=== PATIENT | female | born 1980 ===

== ENCOUNTER 2016-11-01 17:38 | Emergency (ER) | payer OTHER ==
[2016-11-01 17:52] VITALS: BP 104/66; PULSE 74; RESP 16; TEMP 98.2; O2SAT 99
[2016-11-01] MEDS ORDERED: Sodium Chloride 0.9% 1,000 ML IV STA (18:53)
--- NOTE | 2016-11-01 19:08 | ED PDOC ---
HPI: Abdomen Time Seen by Provider: 11/01/16 18:11 Chief Complaint (Nursing): Abdominal Pain Chief Complaint (Provider): Epigastric Pain History Per: Patient History/Exam Limitations: no limitations Onset/Duration Of Symptoms: Days (2) Current Symptoms Are (Timing): Still Present Severity: Moderate Location Of Pain/Discomfort: Epigastric Associated Symptoms: Nausea, Vomiting. denies: Diarrhea Additional Complaint(s): Kelsea Gray is a 36 y/o female, with a past medical history of hypercholesterolemia, presenting to the ER on 11/01/2016 with complaints of epigastric pain for two days. Reports associated nausea and vomiting but denies any episodes of diarrhea. Past Medical History Vital Signs: Last Vital Signs Temp 98.2 F 11/01/16 17:49 Pulse 74 11/01/16 17:49 Resp 16 11/01/16 17:49 BP 104/66 11/01/16 17:49 Pulse Ox 99 11/01/16 19:10 - Family History Family History: States: Unknown Family Hx - Home Medications Home Medications: Ambulatory Orders Medication Instructions Recorded Famotidine [Pepcid] 20 mg PO Q12 #20 tab 11/01/16 Ondansetron [Zofran] 4 mg PO Q8H #10 tab 11/01/16 - Allergies Allergies/Adverse Reactions: Allergies Allergy/AdvReac Type Severity Reaction Status Date / Time Penicillins Allergy RASH Verified 11/01/16 17:49 Review of Systems ROS Statement: Except As Marked, All Systems Reviewed And Found Negative Gastrointestinal: Positive for: Nausea, Vomiting, Abdominal Pain. Negative for : Diarrhea Neurological: Negative for: Weakness, Numbness Physical Exam - Reviewed Nursing Documentation Reviewed: Yes Vital Signs Reviewed: Yes - Physical Exam Appears: Positive for: Non-toxic, No Acute Distress Head Exam: Positive for: ATRAUMATIC, NORMOCEPHALIC Skin: Positive for: Normal Color. Negative for: Rash Eye Exam: Positive for: Normal appearance, EOMI, PERRL ENT: Positive for: Normal ENT Inspection. Negative for: Pharyngeal Erythema, Tonsillar Exudate, Tonsillar Swelling Neck: Positive for: Normal, Painless ROM, Supple Cardiovascular/Chest: Positive for: Regular Rate, Rhythm. Negative for: Murmur Respiratory: Positive for: Normal Breath Sounds. Negative for: Wheezing, Respiratory Distress Gastrointestinal/Abdominal: Positive for: Tenderness ((+) epigastric ) Extremity: Positive for: Normal ROM. Negative for: Deformity, Swelling Neurologic/Psych: Positive for: Alert, Oriented. Negative for: Motor/Sensory Deficits - Laboratory Results Result Diagrams: 11/01/16 19:55 11/01/16 19:55 - ECG O2 Sat by Pulse Oximetry: 99 Medical Decision Making Medical Decision Makin:11 Initial Impression- 36 y/o female with epigastric pain Initial Plan- * CMP * Urine Dip * Urine Preg * CBC w/ differential * Bentyl 10 mg PO * Pepcid 20 mg IVP * Sodium Chloride 1,000 ml IV * Zofran 4 mg IVP * Re-evaluate Documented by Gena Walsh, acting as a scribe for Duong Alejandro MD. All medical record entries made by the Scribe were at my direction and personally dictated by me. I have reviewed the chart and agree that the record accurately reflects my personal performance of the history, physical exam, medical decision making, and the department course for this patient. I have also personally directed, reviewed, and agree with the discharge instructions and disposition. Disposition - Clinical Impression Clinical Impression: Gastritis - Patient ED Disposition Is Patient to be Admitted: No Counseled Patient/Family Regarding: Studies Performed, Diagnosis, Need For Followup, Rx Given - Disposition Referrals: [facility] [Outside] Disposition: Routine/Home Disposition Time: 21:38 Condition: FAIR Prescriptions: Famotidine [Pepcid] 20 mg PO Q12 #20 tab Ondansetron [Zofran] 4 mg PO Q8H #10 tab Instructions: Gastritis (ED)
[2016-11-01 20:11] LABS: BASO % 0.7 % (0.0-2.0); EOS # 0.3 K/uL (0.0-0.7); EOS % 5.6 % (0.0-4.0); LYMPH # 1.1 K/uL (1.0-4.3); LYMPH % 24.5 % (20.0-40.0); MEAN CELL VOLUME 90.2 fl (81.0-99.0); MEAN CORPUSCULAR HEMOGLOBIN 29.7 pg (27.0-31.0); MEAN CORPUSCULAR HGB CONC 32.9 g/dL (33.0-37.0); MEAN PLATELET VOLUME 7.7 fl (7.2-11.7); MONO # 0.5 K/uL (0.0-0.8); MONO % 10.3 % (0.0-10.0); NEUT # 2.7 K/uL (1.8-7.0); NEUT % 58.9 % (50.0-75.0); NRBC % 0.1 % (0.0-0.0); RED CELL DISTRIBUTION WIDTH 14.9 % (11.5-14.5); WHITE BLOOD COUNT 4.6 K/uL (4.8-10.8)
[2016-11-01 20:22] LABS: ALB/GLOB RATIO 1.2 (1.0-2.1); ALKALINE PHOSPHATASE 80 U/L (38-126); ALT/SGPT 51 U/L (9-52); AST/SGOT 41 U/L (14-36); BILIRUBIN,TOTAL 0.6 mg/dl (0.2-1.3); BLOOD UREA NITROGEN 15 mg/dl (7-17); CALCIUM 8.3 mg/dL (8.4-10.2); CARBON DIOXIDE 25 mmol/L (22-30); CHLORIDE 106 mmol/L (98-107); GFR AFRICAN-AMERICAN > 60; GLUCOSE,RANDOM 82 mg/dL (65-105); POTASSIUM 4.9 MMOL/L (3.6-5.0); SODIUM 139 mmol/l (132-148); TOTAL PROTEIN 6.5 G/DL (6.3-8.2)
== END 2016-11-01 21:39 | disposition home or self-care (01) ==
LOC: H.ER 17:38
DX: K29.70 Gastritis, unspecified, without bleeding (principal); Z88.0 Allergy status to penicillin

== ENCOUNTER 2016-12-02 21:05 | Emergency (ER) | payer OTHER ==
[2016-12-02 21:17] VITALS: RESP 16; O2SAT 100
[2016-12-02] MEDS ORDERED: Alum-Mag Hydrox-Simethicone Susp (30 mL) PO STA (21:41)
--- NOTE | 2016-12-02 21:48 | ED PDOC ---
HPI: Abdomen Time Seen by Provider: 12/02/16 21:21 Chief Complaint (Nursing): Abdominal Pain Chief Complaint (Provider): Abdominal Pain History Per: Patient History/Exam Limitations: no limitations Onset/Duration Of Symptoms: Days (1) Current Symptoms Are (Timing): Still Present Severity: Moderate Location Of Pain/Discomfort: Epigastric Quality Of Discomfort: "Pain" Associated Symptoms: Chills, Vomiting. denies: Fever, Diarrhea Additional Complaint(s): Kelsea Gray is a 36 y/o female, with a past medical history of Lyme Disease and Gastritis, presenting to the ER on 12/02/2016 with complaints of epigastric pain onset one day. Patient reports pain originated around 16:00 today and has been constant every five minutes prior to arrival and while in the ED. She states the abdominal pain is associated with chills and one episodes of non-bloody vomiting. However, she denies any fever or diarrhea. Patient notes started taking Flagyl, Pantoprazole, and Clarithromycin after having a recent H. pylori test performed. Patient further reports she had an Ultrasound performed in this ED. Past Medical History Reviewed: Historical Data, Nursing Documentation, Vital Signs Vital Signs: Last Vital Signs Temp 98.8 F 12/02/16 21:11 Pulse 71 12/02/16 21:11 Resp 16 12/02/16 21:11 BP 102/68 12/02/16 21:11 Pulse Ox 100 12/02/16 21:52 - Medical History PMH: Gastritis Other PMH: Lyme disease - Surgical History Surgical History: No Surg Hx - Family History Family History: States: Unknown Family Hx - Social History Current smoker - smoking cessation education provided: No Alcohol: None Drugs: Denies - Home Medications Home Medications: Ambulatory Orders Medication Instructions Recorded Famotidine [Pepcid] 20 mg PO Q12 #20 tab 11/01/16 Ondansetron [Zofran] 4 mg PO Q8H #10 tab 11/01/16 - Allergies Allergies/Adverse Reactions: Allergies Allergy/AdvReac Type Severity Reaction Status Date / Time Penicillins Allergy RASH Verified 11/01/16 17:49 Review of Systems ROS Statement: Except As Marked, All Systems Reviewed And Found Negative Constitutional: Positive for: Chills. Negative for: Fever Gastrointestinal: Positive for: Vomiting, Abdominal Pain. Negative for: Diarrhea Physical Exam - Reviewed Nursing Documentation Reviewed: Yes Vital Signs Reviewed: Yes - Physical Exam Appears: Positive for: Non-toxic, No Acute Distress Head Exam: Positive for: ATRAUMATIC, NORMOCEPHALIC Skin: Positive for: Normal Color. Negative for: Rash Eye Exam: Positive for: Normal appearance ENT: Positive for: Normal ENT Inspection Neck: Positive for: Normal, Painless ROM, Supple Cardiovascular/Chest: Positive for: Regular Rate, Rhythm. Negative for: Murmur Respiratory: Positive for: Normal Breath Sounds. Negative for: Respiratory Distress Gastrointestinal/Abdominal: Positive for: Normal Exam, Tenderness ((+) epigastric ) Extremity: Positive for: Normal ROM. Negative for: Deformity, Swelling Neurologic/Psych: Positive for: Alert, Oriented. Negative for: Motor/Sensory Deficits - Laboratory Results Result Diagrams: 12/02/16 21:55 12/02/16 21:55 - ECG O2 Sat by Pulse Oximetry: 100 - Progress Re-evaluation Time: 23:51 Condition: Re-examined, Improved Medical Decision Making Medical Decision Makin:21 Initial Impression- Abdominal Pain. Differerential diagnosis includes but not limited to gastritis and PUD. Rule out pancratitis, rule out cholecystitis Initial Plan- * CMP * Lipase * CBC w/ differential * Maalox 30 ml PO * Pepcid 20 mg IVP * Lidocaine 2% viscous 15 ml PO * Zofran 4 mg IV US Performed on 11/04/2016 FINDINGS: LIVER: Measures 14.4 cm. Patent portal vein. Portal venous flow: Hepatopetal. Unremarkeable echogenicity of the liver parenchyma. No mass. No intrahepatic bile duct dilatation. GALLBLADDER: Unremarkable. No gallstones. COMMON BILE DUCT: Measures 2.6 mm. No stones. No dilatation. PANCREAS: Unremarkable as visualized. No mass. No ductal dilatation. RIGHT KIDNEY: Measures 5 x 10.5cm. Normal echogenicity. No calculus, mass, or hydronephrosis. LEFT KIDNEY: Measures 4.9 x 12.2cm. Normal echogenicity. No calculus, mass, or hydronephrosis. SPLEEN: Normal in size and contour. No mass. AORTA: No aneurysmal dilatation. IVC: Unremarkable. OTHER FINDINGS: None. IMPRESSION: Unremarkable abdominal sonogram Documented by Gena Walsh, acting as a scribe for Rachel Messina MD All medical record entries made by the Scribe were at my direction and personally dictated by me. I have reviewed the chart and agree that the record accurately reflects my personal performance of the history, physical exam, medical decision making, and the department course for this patient. I have also personally directed, reviewed, and agree with the discharge instructions and disposition. Disposition - Clinical Impression Clinical Impression: Gastritis - Patient ED Disposition Is Patient to be Admitted: No Doctor Will See Patient In The: Office Counseled Patient/Family Regarding: Studies Performed, Diagnosis, Need For Followup - Disposition Referrals: [facility] [Outside] Disposition: Routine/Home Disposition Time: 23:51 Condition: GOOD Additional Instructions: Continue taking your medications as instructed. Follow up with your PCp in 2-3 days. Return for worsening. Instructions: Gastritis (ED) Print Language: CROATIAN
[2016-12-02 22:07] LABS: BASO % 0.5 % (0.0-2.0); EOS # 0.2 K/uL (0.0-0.7); EOS % 3.1 % (0.0-4.0); HEMOGLOBIN 12.9 g/dL (12.0-16.0); LYMPH % 17.9 % (20.0-40.0); MEAN CELL VOLUME 88.6 fl (81.0-99.0); MEAN CORPUSCULAR HEMOGLOBIN 29.2 pg (27.0-31.0); MEAN PLATELET VOLUME 7.6 fl (7.2-11.7); MONO # 0.6 K/uL (0.0-0.8); MONO % 10.8 % (0.0-10.0); NEUT # 3.8 K/uL (1.8-7.0); NEUT % 67.7 % (50.0-75.0); RBC 4.42 Mil/uL (3.80-5.20); RED CELL DISTRIBUTION WIDTH 15.4 % (11.5-14.5); WHITE BLOOD COUNT 5.6 K/uL (4.8-10.8)
[2016-12-02 22:18] LABS: ALB/GLOB RATIO 1.3 (1.0-2.1); ALBUMIN 3.6 g/dL (3.5-5.0); ALT/SGPT 53 U/L (9-52); AST/SGOT 27 U/L (14-36); BLOOD UREA NITROGEN 9 mg/dl (7-17); CALCIUM 8.9 mg/dL (8.4-10.2); GFR AFRICAN-AMERICAN > 60; GFR NON-AFRICAN AMERICAN > 60; LIPASE 85 U/L (23-300)
[2016-12-02 23:52] VITALS: BP 112/66; PULSE 66; TEMP 98.2
== END 2016-12-02 23:59 | disposition home or self-care (01) ==
LOC: H.ER 21:05
DX: K29.70 Gastritis, unspecified, without bleeding (principal); K27.9 Peptic ulcer, site unspecified, unspecified as acute or chronic, without hemorrhage or perforation; Z88.0 Allergy status to penicillin; A69.20 Lyme disease, unspecified

== ENCOUNTER 2017-01-06 07:10 | Emergency (ER) | payer OTHER ==
[2017-01-06 07:35] VITALS: RESP 18
[2017-01-06] MEDS ORDERED: Sodium Chloride 0.9% 1,000 ML IV STA (07:49)
--- NOTE | 2017-01-06 07:51 | ED PDOC ---
HPI: Abdomen Time Seen by Provider: 01/06/17 07:33 Chief Complaint (Nursing): Abdominal Pain Chief Complaint (Provider): Abdominal Pain History Per: Patient History/Exam Limitations: no limitations Onset/Duration Of Symptoms: Days (x1 week) Current Symptoms Are (Timing): Still Present Additional Complaint(s): 36 y/o female presents to the emergency department with a complaint of an epigastric abdominal pain associated with nausea and diarrhea x1 week. Reports she was diagnosed with "bacteria in stomach," and currently taking treatment medications x2 weeks. Denies fever or blood stool.s Past Medical History Reviewed: Historical Data, Nursing Documentation, Vital Signs Vital Signs: Last Vital Signs Temp 97.8 F 01/06/17 07:32 Pulse 73 01/06/17 07:32 Resp 18 01/06/17 07:32 BP 95/61 L 01/06/17 07:32 Pulse Ox 100 01/06/17 08:28 - Medical History PMH: Gastritis - Surgical History Surgical History: No Surg Hx - Family History Family History: States: Unknown Family Hx - Home Medications Home Medications: Ambulatory Orders Medication Instructions Recorded Famotidine [Pepcid] 20 mg PO Q12 #20 tab 11/01/16 Ondansetron [Zofran] 4 mg PO Q8H #10 tab 11/01/16 Ondansetron [Zofran] 4 mg PO Q8H #10 tab 01/06/17 Pantoprazole Sodium [Protonix] 40 mg PO DAILY #30 tablet. 01/06/17 - Allergies Allergies/Adverse Reactions: Allergies Allergy/AdvReac Type Severity Reaction Status Date / Time Penicillins Allergy RASH Verified 11/01/16 17:49 Review of Systems ROS Statement: Except As Marked, All Systems Reviewed And Found Negative Constitutional: Negative for: Fever Gastrointestinal: Positive for: Nausea, Abdominal Pain (Epigastric), Diarrhea. Negative for: Hematochezia Physical Exam - Reviewed Nursing Documentation Reviewed: Yes Vital Signs Reviewed: Yes - Physical Exam Appears: Positive for: Non-toxic, No Acute Distress Head Exam: Positive for: ATRAUMATIC, NORMAL INSPECTION, NORMOCEPHALIC Skin: Positive for: Normal Color, Warm, Dry Neck: Positive for: Normal, Supple Cardiovascular/Chest: Positive for: Regular Rate, Rhythm. Negative for: Murmur Respiratory: Positive for: Normal Breath Sounds. Negative for: Accessory Muscle Use, Wheezing, Respiratory Distress Gastrointestinal/Abdominal: Positive for: Soft, Tenderness (Mild tenderness to the epigastric region). Negative for: Normal Exam Neurologic/Psych: Positive for: Alert, Oriented (x3) - Laboratory Results Result Diagrams: 01/06/17 08:15 01/06/17 08:15 - ECG O2 Sat by Pulse Oximetry: 100 (RA) Pulse Ox Interpretation: Normal Medical Decision Making Medical Decision Making: Time: 07:49 Initial impression: Abdominal pain Initial plan: --CMP --Lipase --Urine DIP & Preg --CBC w/ diff --Bentyl 10 mg PO --Pepcid 20 mg IVP --Zofran 4 mg IVP --Sodium Chloride 1L IV 100 mls/hr --Reevaluation Scribe Attestation: Documented by Yanelis Chambers, acting as a scribe for Duong Alejandro MD. Provider Scribe Attestation: All medical record entries made by the Scribe were at my direction and personally dictated by me. I have reviewed the chart and agree that the record accurately reflects my personal performance of the history, physical exam, medical decision making, and the department course for this patient. I have also personally directed, reviewed, and agree with the discharge instructions and disposition. Disposition - Clinical Impression Clinical Impression: Gastritis - Patient ED Disposition Is Patient to be Admitted: No - Disposition Referrals: Provider LAURO, [Primary Care Provider] - [facility] [Outside] Disposition: Routine/Home Disposition Time: 10:57 Condition: FAIR Prescriptions: Ondansetron [Zofran] 4 mg PO Q8H #10 tab Pantoprazole Sodium [Protonix] 40 mg PO DAILY #30 tablet. Instructions: Gastritis (ED) Forms: [id number] (Portuguese)
[2017-01-06 08:23] LABS: BASO % 0.4 % (0.0-2.0); EOS # 0.2 K/uL (0.0-0.7); EOS % 3.6 % (0.0-4.0); HEMATOCRIT 38.9 % (34.0-47.0); LYMPH % 19.6 % (20.0-40.0); MEAN CELL VOLUME 88.5 fl (81.0-99.0); MEAN CORPUSCULAR HEMOGLOBIN 29.5 pg (27.0-31.0); MEAN CORPUSCULAR HGB CONC 33.4 g/dL (33.0-37.0); MEAN PLATELET VOLUME 7.4 fl (7.2-11.7); MONO # 0.5 K/uL (0.0-0.8); MONO % 9.9 % (0.0-10.0); NEUT # 3.5 K/uL (1.8-7.0); NEUT % 66.5 % (50.0-75.0); NRBC % 0.2 % (0.0-0.0); RED CELL DISTRIBUTION WIDTH 14.8 % (11.5-14.5); WHITE BLOOD COUNT 5.3 K/uL (4.8-10.8)
[2017-01-06 08:38] LABS: ALB/GLOB RATIO 1.3 (1.0-2.1); ALKALINE PHOSPHATASE 108 U/L (38-126); ALT/SGPT 42 U/L (9-52); AST/SGOT 31 U/L (14-36); BILIRUBIN,TOTAL 0.5 mg/dl (0.2-1.3); BLOOD UREA NITROGEN 12 mg/dl (7-17); CALCIUM 8.9 mg/dL (8.4-10.2); CARBON DIOXIDE 27 mmol/L (22-30); CHLORIDE 103 mmol/L (98-107); GFR AFRICAN-AMERICAN > 60; GLUCOSE,RANDOM 96 mg/dL (65-105); LIPASE 108 U/L (23-300); POTASSIUM 3.7 MMOL/L (3.6-5.0); SODIUM 138 mmol/l (132-148); TOTAL PROTEIN 6.7 G/DL (6.3-8.2)
[2017-01-06 11:32] VITALS: BP 110/64; PULSE 72; TEMP 98.3; O2SAT 99
== END 2017-01-06 11:32 | disposition home or self-care (01) ==
LOC: SUPCPDRO 07:10 → H.ER 07:10
DX: K29.70 Gastritis, unspecified, without bleeding (principal); Z88.0 Allergy status to penicillin
CPT/HCPCS: 80053; 81025; 83690; 85025; 96374; 96375; 99284; J2405; J7040

== ENCOUNTER 2017-03-08 10:03 | Emergency (ER) | payer SELFPAY ==
[2017-03-08 11:46] VITALS: RESP 18; TEMP 97
[2017-03-08] MEDS ORDERED: Sodium Chloride 0.9% 1,000 ML IV STA (12:00)
[2017-03-08] MEDS ORDERED: HYDROmorphone 1 mg/ml ISec IVP STA (12:00)
--- NOTE | 2017-03-08 12:10 | ED PDOC ---
HPI: Abdomen Time Seen by Provider: 03/08/17 11:38 Chief Complaint (Nursing): Abdominal Pain Chief Complaint (Provider): Right Lower Quadrant Pain History Per: Patient History/Exam Limitations: no limitations Onset/Duration Of Symptoms: Days (x 1 (last night)) Current Symptoms Are (Timing): Still Present Location Of Pain/Discomfort: RLQ Additional Complaint(s): Kelsea is a 37 year old female, who presents to the Emergency Department complaining of right lower quadrant pain since last night. Patient describes as constant and sharp pain. Patient states she took ibuprofen, but had no relief. States that pain began at the right lower back and radiated to abdomen. Denies fever, nausea, vomiting, diarrhea, constipation, dysuria, and frequency. PMD: Provider TBD Past Medical History Reviewed: Historical Data, Nursing Documentation, Vital Signs Vital Signs: Last Vital Signs Temp 97 F L 03/08/17 11:42 Pulse 77 03/08/17 11:42 Resp 18 03/08/17 11:42 BP 105/57 L 03/08/17 11:42 Pulse Ox 96 03/08/17 14:01 - Medical History PMH: Gastritis - Surgical History Surgical History: No Surg Hx - Family History Family History: States: Unknown Family Hx - Home Medications Home Medications: Ambulatory Orders Medication Instructions Recorded Famotidine [Pepcid] 20 mg PO Q12 #20 tab 11/01/16 Ondansetron [Zofran] 4 mg PO Q8H #10 tab 11/01/16 Ondansetron [Zofran] 4 mg PO Q8H #10 tab 01/06/17 Pantoprazole Sodium [Protonix] 40 mg PO DAILY #30 tablet. 01/06/17 Acetaminophen with Codeine 1 tab PO Q6H PRN #10 tab 03/08/17 [Tylenol with Codeine No. 3 300 mg-30 mg] Ciprofloxacin [Cipro] 500 mg PO BID #13 tab 03/08/17 metroNIDAZOLE [Flagyl] 500 mg PO TID #20 tab 03/08/17 - Allergies Allergies/Adverse Reactions: Allergies Allergy/AdvReac Type Severity Reaction Status Date / Time Penicillins Allergy RASH Verified 03/08/17 11:40 Review of Systems ROS Statement: Except As Marked, All Systems Reviewed And Found Negative Constitutional: Negative for: Fever Gastrointestinal: Positive for: Abdominal Pain (Right Lower Quadrant). Negative for: Nausea, Vomiting, Diarrhea, Constipation Genitourinary Female: Negative for: Dysuria, Frequency Physical Exam - Reviewed Nursing Documentation Reviewed: Yes Vital Signs Reviewed: Yes - Physical Exam Appears: Positive for: Non-toxic, In Acute Distress (Moderate and painful distress) Head Exam: Positive for: ATRAUMATIC, NORMAL INSPECTION, NORMOCEPHALIC Skin: Positive for: Normal Color, Warm, Dry Eye Exam: Positive for: EOMI, Normal appearance, PERRL Neck: Positive for: Normal, Painless ROM Cardiovascular/Chest: Positive for: Regular Rate, Rhythm. Negative for: Murmur Respiratory: Positive for: Normal Breath Sounds. Negative for: Respiratory Distress Gastrointestinal/Abdominal: Positive for: Soft, Tenderness (Generalized tenderness , but more at right lower quadrant). Negative for: Guarding, Rebound Back: Positive for: Normal Inspection. Negative for: Vertebral Tenderness Extremity: Positive for: Normal ROM. Negative for: Pedal Edema, Deformity Neurologic/Psych: Positive for: Alert, Oriented. Negative for: Motor/Sensory Deficits - Laboratory Results Result Diagrams: 03/08/17 12:30 03/08/17 12:30 - ECG O2 Sat by Pulse Oximetry: 96 (RA) Pulse Ox Interpretation: Normal Medical Decision Making Medical Decision Making: Time: 11:59 Initial Impression: Ovarian torsion vs. appendicitis Initial Plan: - CT Abdominal and Pelvis with IV contrast - CMP - CBC - Partial Thromboplastin Time - Prothrombin Time - Dilaudid 1 mg IVP - Sodium Chloride 0.9% 1,000 ml IV 1,000 mls/hr - Urinalysis - US Pelvis/Transvaginal Time: 13:47 US Abdominal/Pelvis/Transvaginal FINDINGS: UTERUS: Measures 7.6 x 3.5 x 4.4 cm. Anteverted, normal in size and appearance. No fibroid or other mass lesion seen. ENDOMETRIUM: Measures 11 mm in diameter. Normal in appearance. CERVIX: No cervical abnormality identified. RIGHT OVARY: Measures 2.8 x 2.0 x 2.0 cm. No solid mass. Normal flow. LEFT OVARY: Measures 2.2 x 1.5 x 1.6 cm. No solid mass. Normal flow. FREE FLUID: There is a small amount of free fluid in the cul de sac, likely physiologic. OTHER FINDINGS: None. IMPRESSION: Normal pelvic ultrasound. Time: 14;12 CT Abdominal/Pelvis FINDINGS: LOWER THORAX: The lung bases are clear. LIVER: There is mild hepatomegaly and diffuse fatty infiltration in the liver. No gross lesion or ductal dilatation. GALLBLADDER AND BILE DUCTS: There are no calcified gallstones. . PANCREAS: Normal in size and there is homogeneous enhancement. No gross lesion or ductal dilatation. SPLEEN: Normal in size and appearance without focal lesion. ADRENALS: There is thickening of the adrenal glands without discrete nodule. KIDNEYS AND URETERS: Both kidneys are normal in size and there is homogeneous enhancement. No hydronephrosis. No solid mass. VASCULATURE: No aortic aneurysm. BOWEL: The small bowel loops are normal in caliber. There is moderate mural thickening in the ascending colon with mucosal enhancement and mild pericolonic inflammatory changes. There is large amount of stool in the transverse and left hemicolon. No bowel dilatation or obstruction. APPENDIX: The appendix is normal in caliber and there is intraluminal air without surrounding inflammatory changes. PERITONEUM: There is small amount of free fluid in the pelvis. No free air. LYMPH NODES: There are enlarged mesenteric lymph nodes. BLADDER: Grossly normal in appearance. REPRODUCTIVE: The uterus is normal in size. BONES: No acute fracture. OTHER FINDINGS: None. IMPRESSION: 1. Findings are most compatible with nonspecific infectious/ inflammatory colitis involving the ascending colon. Also noted is small amount of free fluid in the pelvis and reactive mesenteric lymphadenopathy. No drainable abscess or fluid collection. 2. Mild hepatomegaly and hepatic steatosis. Time: 14:46 Clinical Impression: Colitis Upon provider re-evaluation patient is medically stable, and requires no further treatment in the ED at this time. Patient will be discharged with Rx for Tylenol with Codeine, Cipro, and Flagyl. Counseling was provided and all questions were answered regarding diagnosis and need for follow up with PMD. There is agreement to discharge plan. Return if symptoms persist or worsen. Scribe Attestation: Documented by Osiel Ayala, acting as a scribe for Shelby Cobb MD Provider Scribe Attestation: All medical record entries made by the Scribe were at my direction and personally dictated by me. I have reviewed the chart and agree that the record accurately reflects my personal performance of the history, physical exam, medical decision making, and the department course for this patient. I have also personally directed, reviewed, and agree with the discharge instructions and disposition. Disposition - Clinical Impression Clinical Impression: Colitis - Patient ED Disposition Is Patient to be Admitted: No Counseled Patient/Family Regarding: Studies Performed, Diagnosis, Need For Followup, Rx Given - Disposition Referrals: [facility] [Outside] Disposition Time: 14:46 Condition: STABLE Prescriptions: Acetaminophen with Codeine [Tylenol with Codeine No. 3 300 mg-30 mg] 1 tab PO Q6H PRN #10 tab PRN Reason: Pain, Severe (8-10) Ciprofloxacin [Cipro] 500 mg PO BID #13 tab metroNIDAZOLE [Flagyl] 500 mg PO TID #20 tab Instructions: Colitis (ED) Forms: [employer] (Austrian)
[2017-03-08 12:21] LABS: RBC URINE < 1 /hpf (0-3); URINE BILIRUBIN NEGATIVE (NEGATIVE); URINE BLOOD NEGATIVE (NEGATIVE); URINE COLOR COLORLESS (YELLOW); URINE GLUCOSE (UA) NEG (Normal); URINE KETONE NEGATIVE (NEGATIVE); URINE LEUKOCYTE ESTERASE NEG Leu/uL (Negative); URINE PROTEIN NEGATIVE (NEGATIVE); URINE UROBILINOGEN 0.2-1.0 mg/dL (0.2-1.0)
[2017-03-08 12:42] LABS: BASO % 0.4 % (0.0-2.0); EOS # 0.1 K/uL (0.0-0.7); EOS % 2.2 % (0.0-4.0); HEMATOCRIT 36.9 % (34.0-47.0); MEAN CELL VOLUME 86.3 fl (81.0-99.0); MEAN CORPUSCULAR HEMOGLOBIN 29.3 pg (27.0-31.0); MEAN CORPUSCULAR HGB CONC 33.9 g/dL (33.0-37.0); MEAN PLATELET VOLUME 7.3 fl (7.2-11.7); MONO # 0.5 K/uL (0.0-0.8); MONO % 7.6 % (0.0-10.0); NEUT # 5.2 K/uL (1.8-7.0); NEUT % 75.8 % (50.0-75.0); NRBC % 0.1 % (0.0-0.0); RED CELL DISTRIBUTION WIDTH 14.4 % (11.5-14.5); WHITE BLOOD COUNT 6.9 K/uL (4.8-10.8)
[2017-03-08 12:47] LABS: PARTIAL THROMBOPLASTIN TIME 29.5 Seconds (25.6-37.1)
[2017-03-08] MEDS ORDERED: HYDROmorphone 0.5 mg/0.5 ml ISec ONE (12:47)
[2017-03-08 12:48] LABS: ALB/GLOB RATIO 1.2 (1.0-2.1); ALKALINE PHOSPHATASE 85 U/L (38-126); ALT/SGPT 35 U/L (9-52); AST/SGOT 27 U/L (14-36); BILIRUBIN,TOTAL 0.3 mg/dl (0.2-1.3); BLOOD UREA NITROGEN 4 mg/dl (7-17); CALCIUM 8.2 mg/dL (8.4-10.2); CARBON DIOXIDE 26 mmol/L (22-30); CHLORIDE 107 mmol/L (98-107); GFR AFRICAN-AMERICAN > 60; GLUCOSE,RANDOM 93 mg/dL (65-105); POTASSIUM 3.8 MMOL/L (3.6-5.0); SODIUM 140 mmol/l (132-148); TOTAL PROTEIN 6.3 G/DL (6.3-8.2)
[2017-03-08] MEDS ORDERED: Sodium Chloride 0.9% 50 ML IV ONE (13:17)
[2017-03-08] MEDS ORDERED: Iohexol 300 100 ML IJ ONE (13:17)
--- NOTE | 2017-03-08 13:49 | US ---
HISTORY: RLQ pain COMPARISON: None available. TECHNIQUE: Transabdominal and transvaginal pelvic ultrasound was performed FINDINGS: UTERUS: Measures 7.6 x 3.5 x 4.4 cm. Anteverted, normal in size and appearance. No fibroid or other mass lesion seen. ENDOMETRIUM: Measures 11 mm in diameter. Normal in appearance. CERVIX: No cervical abnormality identified. RIGHT OVARY: Measures 2.8 x 2.0 x 2.0 cm. No solid mass. Normal flow. LEFT OVARY: Measures 2.2 x 1.5 x 1.6 cm. No solid mass. Normal flow. FREE FLUID: There is a small amount of free fluid in the cul de sac, likely physiologic. OTHER FINDINGS: None. IMPRESSION: Normal pelvic ultrasound.
--- NOTE | 2017-03-08 14:13 | CT ---
PROCEDURE: CT Abdomen and Pelvis with contrast HISTORY: RLQ pain COMPARISON: Pelvic ultrasound performed the same day. TECHNIQUE: CT scan of the abdomen and pelvis was performed after intravenous administration of contrast. Oral contrast was not administered. Coronal and sagittal reformatted images were obtained. Contrast dose: 95 cc Omnipaque 300 Radiation dose: Total exam DLP = 319.22 mGy-cm. This CT exam was performed using one or more of the following dose reduction techniques: Automated exposure control, adjustment of the mA and/or kV according to patient size, and/or use of iterative reconstruction technique. FINDINGS: LOWER THORAX: The lung bases are clear. LIVER: There is mild hepatomegaly and diffuse fatty infiltration in the liver. No gross lesion or ductal dilatation. GALLBLADDER AND BILE DUCTS: There are no calcified gallstones. . PANCREAS: Normal in size and there is homogeneous enhancement. No gross lesion or ductal dilatation. SPLEEN: Normal in size and appearance without focal lesion. ADRENALS: There is thickening of the adrenal glands without discrete nodule. KIDNEYS AND URETERS: Both kidneys are normal in size and there is homogeneous enhancement. No hydronephrosis. No solid mass. VASCULATURE: No aortic aneurysm. BOWEL: The small bowel loops are normal in caliber. There is moderate mural thickening in the ascending colon with mucosal enhancement and mild pericolonic inflammatory changes. There is large amount of stool in the transverse and left hemicolon. No bowel dilatation or obstruction. APPENDIX: The appendix is normal in caliber and there is intraluminal air without surrounding inflammatory changes. PERITONEUM: There is small amount of free fluid in the pelvis. No free air. LYMPH NODES: There are enlarged mesenteric lymph nodes. BLADDER: Grossly normal in appearance. REPRODUCTIVE: The uterus is normal in size. BONES: No acute fracture. OTHER FINDINGS: None. IMPRESSION: 1. Findings are most compatible with nonspecific infectious/ inflammatory colitis involving the ascending colon. Also noted is small amount of free fluid in the pelvis and reactive mesenteric lymphadenopathy. No drainable abscess or fluid collection. 2. Mild hepatomegaly and hepatic steatosis.
[2017-03-08] MEDS ORDERED: Ciprofloxacin 400mg/200ml D5W 400 MG/200 ML BAG IV STA (14:26)
[2017-03-08] MEDS ORDERED: Ciprofloxacin 400mg/200ml D5W 400 MG/200 ML BAG IVPB ONE (14:54)
[2017-03-08 16:52] VITALS: BP 98/65; PULSE 63; O2SAT 97
== END 2017-03-08 16:47 | disposition home or self-care (01) ==
LOC: H.ER 10:03
DX: K52.9 Noninfective gastroenteritis and colitis, unspecified (principal); K76.0 Fatty (change of) liver, not elsewhere classified
CPT/HCPCS: 74177; 76830; 76856; 80053; 81003; 81025; 85025; 85610; 85730; 96374; 99283; J0744; J1170; J7040; Q9967

== ENCOUNTER 2017-05-23 16:36 | Emergency (ER) | payer SELFPAY ==
[2017-05-23 17:10] VITALS: O2SAT 99
[2017-05-23] MEDS ORDERED: Iohexol 240 (50 ml) PO STA (17:36)
[2017-05-23] MEDS ORDERED: Sodium Chloride 0.9% 1,000 ML IV STA (17:36)
--- NOTE | 2017-05-23 17:46 | ED PDOC ---
HPI: Abdomen Time Seen by Provider: 05/23/17 17:15 Chief Complaint (Nursing): Abdominal Pain Chief Complaint (Provider): abd pain History Per: Patient Additional Complaint(s): Patient is a 37 y/o female with a past medical history of gastritis presenting to the emergency department for diffuse abd pain with associated vomiting and nausea ongoing for three days. Patient states she was diagnosed with H. pylori in January 2017. She states she has been on 3 separate courses of antibiotics and her symptoms have not resolved. Patient admits to being noncompliant with gastritis meds. Her abdominal pain worsened over the past few days prompting ED visit today. Patient denies any associated diarrhea or rectal bleeding. PCP: none provided. Past Medical History Reviewed: Historical Data, Nursing Documentation, Vital Signs Vital Signs: Last Vital Signs Temp 98.3 F 05/23/17 17:06 Pulse 90 05/23/17 17:06 Resp 18 05/23/17 17:06 BP 135/85 05/23/17 17:06 Pulse Ox 99 05/23/17 20:38 - Medical History PMH: Gastritis Other PMH: H pylori - Family History Family History: States: No Known Family Hx - Living Arrangements Living Arrangements: With Family - Social History Current smoker - smoking cessation education provided: No Ex-Smoker (has not smoked in the last 12 months): No Alcohol: None Drugs: Denies - Home Medications Home Medications: Ambulatory Orders Medication Instructions Recorded Famotidine [Pepcid] 20 mg PO Q12 #20 tab 11/01/16 Ondansetron [Zofran] 4 mg PO Q8H #10 tab 11/01/16 Ondansetron [Zofran] 4 mg PO Q8H #10 tab 01/06/17 Pantoprazole Sodium [Protonix] 40 mg PO DAILY #30 tablet. 01/06/17 Acetaminophen with Codeine 1 tab PO Q6H PRN #10 tab 03/08/17 [Tylenol with Codeine No. 3 300 mg-30 mg] Ciprofloxacin [Cipro] 500 mg PO BID #13 tab 03/08/17 metroNIDAZOLE [Flagyl] 500 mg PO TID #20 tab 03/08/17 Dicyclomine [Bentyl] 10 mg PO QID PRN #30 cap 05/23/17 Omeprazole 40 mg PO DAILY #30 tab 05/23/17 - Allergies Allergies/Adverse Reactions: Allergies Allergy/AdvReac Type Severity Reaction Status Date / Time Penicillins Allergy RASH Verified 05/23/17 17:05 Review of Systems ROS Statement: Except As Marked, All Systems Reviewed And Found Negative Gastrointestinal: Positive for: Nausea, Vomiting, Abdominal Pain (epigastric, right lower abdominal region). Negative for: Diarrhea, Constipation, Melena, Hematochezia, Hematemesis, Rectal Pain Musculoskeletal: Positive for: Back Pain (left flank) Physical Exam - Reviewed Nursing Documentation Reviewed: Yes Vital Signs Reviewed: Yes - Physical Exam Appears: Positive for: Well, Non-toxic, No Acute Distress Head Exam: Positive for: ATRAUMATIC, NORMAL INSPECTION, NORMOCEPHALIC Skin: Positive for: Normal Color, Warm, Dry Eye Exam: Positive for: Normal appearance Neck: Positive for: Normal Cardiovascular/Chest: Positive for: Regular Rate, Rhythm Respiratory: Negative for: Accessory Muscle Use, Respiratory Distress Gastrointestinal/Abdominal: Positive for: Tenderness (diffuse to entire abdominal region), Guarding. Negative for: Rebound Extremity: Positive for: Normal ROM Neurologic/Psych: Positive for: Alert, Oriented (x3) - Laboratory Results Result Diagrams: 05/23/17 18:15 05/23/17 18:15 Urine POC: Negative Urine dip results: Negative for: Leukocyte Esterase, Blood, Nitrate, Ketones, Glucose, Bilirubin, Protein - ECG O2 Sat by Pulse Oximetry: 99 (RA) Pulse Ox Interpretation: Normal - Other Rad CT abd and pelvis with oral and IV contrast X-Ray: Read By Radiologist X-Ray Interpretation: see below Medical Decision Making Medical Decision Making: Time: 17:36 Initial impression: Patient is a 37 y/o female with persistent abdominal pain. Initial plan: Abdominal/pelvic CT CMP Lipase ED Urine Dipstick Urine CBC Pepcid 20 mg PO Iohexol 50 mL PO Toradol 30 mg IV Normal Saline 1 L IV Zofran 4 mg IV Urinalysis Reevaluation CT: FINDINGS: Lower thorax: No acute findings. ABDOMEN: Liver: Unremarkable. No mass. Gallbladder and bile ducts: No calcified stones. No ductal dilation. Pancreas: No ductal dilation. No mass. Spleen: No splenomegaly. Adrenals: Hypertrophy of adrenal glands, stable. 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 No hydronephrosis. Stomach and bowel: Apparent mild mural/fold thickening vs underdistention of few jejunal loops. No associated inflammatory stranding. Segmental areas of mild mural thickening vs underdistention of distal transverse , proximal descending colon. No associated inflammatory stranding. No obstruction. Appendix: Normal caliber. No inflammation. PELVIS: Bladder: Distended bladder. Reproductive: Probable small right ovarian follicles. ABDOMEN and PELVIS: Intraperitoneal space: No significant fluid collection. No free air. Bones/joints: No acute fracture. Soft tissues: Unremarkable. Vasculature: Unremarkable. No aneurysm. Lymph nodes: Several subcentimeter short axis mesenteric lymph nodes, nonspecific. IMPRESSION: 1. Possible mild enteritis. Clinical correlation is needed. 2. Mild colitis versus underdistention. Clinical correlation is needed. 3. Incidental/non-acute findings are described above. Patient is aware of all diagnostic testing results. Patient improvement to pain s/p med given. She is tolerating liquids in ED, no emesis noted. All questions answered. Patient has been on 3 courses of antibiotics for H. pylori over the past 4 months and reports no improvement. She also admits to being noncompliant with gastritis meds. I stressed to patient the importance of close follow-up with clinic and GI, referral given. Patient given prescription for Prilosec and Bentyl. Dietary instructions given. ~ Scribe Attestation: Documented by La King, acting as a scribe for ANMOL Velasquez. Provider Scribe Attestation: All medical record entries made by the Scribe were at my direction and personally dictated by me. I have reviewed the chart and agree that the record accurately reflects my personal performance of the history, physical exam, medical decision making, and the department course for this patient. I have also personally directed, reviewed, and agree with the discharge instructions and disposition. Disposition - Clinical Impression Clinical Impression: Gastritis, Abdominal pain - Patient ED Disposition Is Patient to be Admitted: No Counseled Patient/Family Regarding: Studies Performed, Diagnosis, Need For Followup, Rx Given - Disposition Referrals: [facility] [Outside] David Huff MD, PhD [Staff Provider] - Disposition: Routine/Home Disposition Time: 21:06 Condition: STABLE Additional Instructions: Take prescription medications as directed. Follow dietary instructions. 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 Prescriptions: Dicyclomine [Bentyl] 10 mg PO QID PRN #30 cap PRN Reason: Gi Distress Omeprazole 40 mg PO DAILY #30 tab Instructions: Gastritis (ED), Diet for Ulcers and Gastritis (ED), Abdominal Pain (ED) Forms: [email or web address] (Irish) Results - Lab Results Lab Results: 05/23/17 05/23/17 05/23/17 18:15 18:15 18:15 WBC 6.2 RBC 4.86 Hgb 12.6 Hct 39.6 MCV 81.5 D MCH 25.9 L MCHC 31.8 L RDW 15.8 H Plt Count 329 MPV 7.6 Neut % (Auto) 68.1 Lymph % (Auto) 16.7 L [place] % (Auto) 11.1 H Eos % (Auto) 3.5 Baso % (Auto) 0.6 Neut # 4.2 Lymph # 1.0 [place] # 0.7 Eos # 0.2 Baso # 0.0 Sodium 142 Potassium 3.7 Chloride 104 Carbon Dioxide 30 Anion Gap 12 BUN 14 Creatinine 0.7 Est GFR ( Amer) > 60 Est GFR (Non-Af Amer) > 60 Random Glucose 100 Calcium 8.9 Total Bilirubin 0.2 AST 25 ALT 22 Alkaline Phosphatase 67 Total Protein 6.6 Albumin 3.5 Globulin 3.1 Albumin/Globulin Ratio 1.1 Lipase 83 Urine Color Yellow Urine Clarity Slighty-cloudy Urine pH 6.0 Ur Specific [place] 1.020 Urine Protein Negative Urine Glucose (UA) Neg Urine Ketones Negative Urine Blood Negative Urine Nitrate Negative Urine Bilirubin Negative Urine Urobilinogen 0.2-1.0 Ur Leukocyte Esterase Neg Urine RBC (Auto) 3 Urine Microscopic WBC 3 Ur Squamous Epith Cells < 1 Urine Bacteria Rare
[2017-05-23] MEDS ORDERED: Iohexol 240 (50 ml) ONE (17:52)
[2017-05-23 18:23] LABS: BASO % 0.6 % (0.0-2.0); EOS # 0.2 K/uL (0.0-0.7); EOS % 3.5 % (0.0-4.0); HEMOGLOBIN 12.6 g/dL (12.0-16.0); LYMPH % 16.7 % (20.0-40.0); MEAN CELL VOLUME 81.5 fl (81.0-99.0); MEAN CORPUSCULAR HEMOGLOBIN 25.9 pg (27.0-31.0); MEAN CORPUSCULAR HGB CONC 31.8 g/dL (33.0-37.0); MEAN PLATELET VOLUME 7.6 fl (7.2-11.7); MONO # 0.7 K/uL (0.0-0.8); MONO % 11.1 % (0.0-10.0); NEUT # 4.2 K/uL (1.8-7.0); NEUT % 68.1 % (50.0-75.0); RBC 4.86 Mil/uL (3.80-5.20); RED CELL DISTRIBUTION WIDTH 15.8 % (11.5-14.5); WHITE BLOOD COUNT 6.2 K/uL (4.8-10.8)
[2017-05-23 18:25] LABS: SQUAMOUS EPITHIAL < 1 /hpf (0-5); URINE BACTERIA RARE (<OCC); URINE BILIRUBIN NEGATIVE (NEGATIVE); URINE BLOOD NEGATIVE (NEGATIVE); URINE CLARITY SLIGHTY-CLOUDY (Clear); URINE COLOR YELLOW (YELLOW); URINE GLUCOSE (UA) NEG (Normal); URINE LEUKOCYTE ESTERASE NEG Leu/uL (Negative); URINE NITRATE NEGATIVE (NEGATIVE); URINE PROTEIN NEGATIVE (NEGATIVE); URINE UROBILINOGEN 0.2-1.0 mg/dL (0.2-1.0)
[2017-05-23 18:34] LABS: ALB/GLOB RATIO 1.1 (1.0-2.1); ALBUMIN 3.5 g/dL (3.5-5.0); ALT/SGPT 22 U/L (9-52); AST/SGOT 25 U/L (14-36); BLOOD UREA NITROGEN 14 mg/dl (7-17); CALCIUM 8.9 mg/dL (8.4-10.2); GFR AFRICAN-AMERICAN > 60; GFR NON-AFRICAN AMERICAN > 60; LIPASE 83 U/L (23-300)
[2017-05-23] MEDS ORDERED: Iohexol 300 100 ML IJ ONE (19:56)
[2017-05-23] MEDS ORDERED: Sodium Chloride 0.9% 50 ML IV ONE (19:56)
--- NOTE | 2017-05-23 20:51 | CT ---
EXAM: CT Abdomen and Pelvis With Intravenous Contrast CLINICAL HISTORY: 37 years old, female; Pain; Abdominal pain; Other: Diffuse abdominal pain; Prior surgery; Surgery date: 6+ months; Surgery type: 2 c-sections; Patient HX: Pt had a history of enlarged left kidney- diagnosed a year ago TECHNIQUE: Axial computed tomography images of the abdomen and pelvis with intravenous contrast. All CT scans at this facility use one or more dose reduction techniques, viz.: automated exposure control; ma/kV adjustment per patient size (including targeted exams where dose is matched to indication; i.e. head); or iterative reconstruction technique. Coronal and sagittal reformatted images were created and reviewed. CONTRAST: 90 mL of [id number] administered intravenously. COMPARISON: CT - ABD PELVIS IV CONTRAST ONLY 2017-03-08 13:20 FINDINGS: Lower thorax: No acute findings. ABDOMEN: Liver: Unremarkable. No mass. Gallbladder and bile ducts: No calcified stones. No ductal dilation. Pancreas: No ductal dilation. No mass. Spleen: No splenomegaly. Adrenals: Hypertrophy of adrenal glands, stable. 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 No hydronephrosis. Stomach and bowel: Apparent mild mural/fold thickening vs underdistention of few jejunal loops. No associated inflammatory stranding. Segmental areas of mild mural thickening vs underdistention of distal transverse, proximal descending colon. No associated inflammatory stranding. No obstruction. Appendix: Normal caliber. No inflammation. PELVIS: Bladder: Distended bladder. Reproductive: Probable small right ovarian follicles. ABDOMEN and PELVIS: Intraperitoneal space: No significant fluid collection. No free air. Bones/joints: No acute fracture. Soft tissues: Unremarkable. Vasculature: Unremarkable. No aneurysm. Lymph nodes: Several subcentimeter short axis mesenteric lymph nodes, nonspecific. IMPRESSION: 1. Possible mild enteritis. Clinical correlation is needed. 2. Mild colitis versus underdistention. Clinical correlation is needed. 3. Incidental/non-acute findings are described above.
[2017-05-23 21:18] VITALS: BP 132/74; PULSE 82; RESP 16; TEMP 97.9
== END 2017-05-23 21:18 | disposition home or self-care (01) ==
LOC: H.ER 16:36
DX: K29.70 Gastritis, unspecified, without bleeding (principal); Z91.19 Patient's noncompliance with other medical treatment and regimen; Z88.0 Allergy status to penicillin; Z87.19 Personal history of other diseases of the digestive system
CPT/HCPCS: 74177; 80053; 81003; 81025; 83690; 85025; 99283; J1885; J2405; J7040; Q9966; Q9967

== ENCOUNTER 2017-05-26 08:45 | Emergency (ER) | payer SELFPAY ==
[2017-05-26 08:55] VITALS: O2SAT 99; BMI 21.2
[2017-05-26 09:08] VITALS: RESP 16
[2017-05-26] MEDS ORDERED: DiphenhydrAMINE 50 mg/ml Inj IVP STA (09:12)
--- NOTE | 2017-05-26 09:53 | ED PDOC ---
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 She reports eating a potato when 10 minutes after she started getting a rash and began to felt itchy. Patient took Zyrtec before arrival with no relief. Head, shoulders, arms, legs and throat are already reported as itchy. Denies shortness of breath. PMD: none provided Past Medical History Reviewed: Historical Data, Nursing Documentation, Vital Signs Vital Signs: Last Vital Signs Temp 98 F 05/26/17 08:59 Pulse 108 H 05/26/17 08:59 Resp 16 05/26/17 08:59 BP 106/67 05/26/17 08:59 Pulse Ox 99 05/26/17 08:59 - Medical History PMH: Gastritis - Surgical History Surgical History: No Surg Hx - Family History Family History: States: Unknown Family Hx - Social History Current smoker - smoking cessation education provided: No Alcohol: None Drugs: Denies - Home Medications Home Medications: Ambulatory Orders Medication Instructions Recorded Famotidine [Pepcid] 20 mg PO Q12 #20 tab 11/01/16 Ondansetron [Zofran] 4 mg PO Q8H #10 tab 11/01/16 Ondansetron [Zofran] 4 mg PO Q8H #10 tab 01/06/17 Pantoprazole Sodium [Protonix] 40 mg PO DAILY #30 tablet. 01/06/17 Acetaminophen with Codeine 1 tab PO Q6H PRN #10 tab 03/08/17 [Tylenol with Codeine No. 3 300 mg-30 mg] Ciprofloxacin [Cipro] 500 mg PO BID #13 tab 03/08/17 metroNIDAZOLE [Flagyl] 500 mg PO TID #20 tab 03/08/17 Dicyclomine [Bentyl] 10 mg PO QID PRN #30 cap 05/23/17 Omeprazole 40 mg PO DAILY #30 tab 05/23/17 DiphenhydrAMINE [Benadryl] 50 mg PO Q6H #20 cap 05/26/17 Famotidine [Pepcid] 20 mg PO BID #20 tab 05/26/17 Prednisone 50 mg PO DAILY #4 tab 05/26/17 - Allergies Allergies/Adverse Reactions: Allergies Allergy/AdvReac Type Severity Reaction Status Date / Time Penicillins Allergy RASH Verified 05/26/17 08:58 Review of Systems ROS Statement: Except As Marked, All Systems Reviewed And Found Negative Respiratory: Negative for: Shortness of Breath Skin: Positive for: Rash (itchy and on head, shoulders, arms and legs) Physical Exam - Reviewed Nursing Documentation Reviewed: Yes Vital Signs Reviewed: Yes - Physical Exam Appears: Positive for: Non-toxic, No Acute Distress Head Exam: Positive for: ATRAUMATIC, NORMOCEPHALIC Skin: Positive for: Warm, Dry, Rash (scattered uritcaria on head, shoulders, lesg and arms) Eye Exam: Positive for: EOMI, Normal appearance, PERRL ENT: Positive for: Other (Uvula is mildy edematous) Neck: Positive for: Normal, Painless ROM, Supple Cardiovascular/Chest: Positive for: Regular Rate, Rhythm Respiratory: Positive for: Normal Breath Sounds. Negative for: Respiratory Distress Gastrointestinal/Abdominal: Positive for: Normal Exam, Soft Extremity: Positive for: Normal ROM, Other (Mild erythema on head, shoulders, legs and arms). Negative for: Deformity Neurologic/Psych: Positive for: Alert, Oriented - ECG O2 Sat by Pulse Oximetry: 99 (RA) Pulse Ox Interpretation: Normal - Progress Re-evaluation Time: 13:49 Condition: Improved (Rash resolved, pharynx clear, no edema, no drooling, lungs remain CTAB.) Disposition - Clinical Impression Clinical Impression: Allergic reaction - Disposition Disposition: Routine/Home Disposition Time: 13:50 Condition: IMPROVED Prescriptions: DiphenhydrAMINE [Benadryl] 50 mg PO Q6H #20 cap Famotidine [Pepcid] 20 mg PO BID #20 tab Prednisone 50 mg PO DAILY #4 tab Instructions: General Allergic Reaction (ED) Forms: [employer] (Hungarian) Print Language: DJIBOUTIAN Medical Decision Making Medical Decision Making: Time: 09:13 Impression: allergic reaction Plan: --Benedryl 25 mg IVP --Pepcid 20 mg IVP --Prednisolone 125 mg IVP Scribe Attestation: Documented by Rocio York, acting as a scribe for Shelby Cobb MD Provider Scribe Attestation: All medical record entries made by the Scribe were at my direction and personally dictated by me. I have reviewed the chart and agree that the record accurately reflects my personal performance of the history, physical exam, medical decision making, and the department course for this patient. I have also personally directed, reviewed, and agree with the discharge instructions and disposition.
[2017-05-26 15:02] VITALS: BP 106/65; PULSE 76; TEMP 98.4
== END 2017-05-26 15:02 | disposition home or self-care (01) ==
LOC: H.ER 08:45
DX: T78.40XA Allergy, unspecified, initial encounter (principal); Z88.0 Allergy status to penicillin
CPT/HCPCS: 96374; 96375; 99282; J1200; J2930

== ENCOUNTER 2017-07-15 11:38 | Emergency (ER) | payer SELFPAY ==
[2017-07-15 11:38] VITALS: BMI 21.2
[2017-07-15 12:04] VITALS: BP 106/60; PULSE 84; RESP 20; TEMP 98.7; O2SAT 98
--- NOTE | 2017-07-15 12:06 | ED PDOC ---
HPI: Abdomen Time Seen by Provider: 07/15/17 12:05 Chief Complaint (Nursing): Abdominal Pain Chief Complaint (Provider): abd pain History Per: Patient Additional Complaint(s): 37-year-old female with history of gastritis presents to emergency department with diffuse abdominal pain, vomiting and diarrhea that started 2 weeks ago. Patient states 1 week ago she developed dysuria and urinary frequency. She states last night she had a temperature of 100.5. Patient was able to tolerate liquids and solids this morning but does have decreased appetite. She denies fever this morning. PMD: [facility] Past Medical History Reviewed: Historical Data, Nursing Documentation, Vital Signs Vital Signs: Last Vital Signs Temp 98.7 F 07/15/17 12:02 Pulse 84 07/15/17 12:02 Resp 20 07/15/17 12:02 BP 106/60 07/15/17 12:02 Pulse Ox 98 07/15/17 14:14 - Medical History PMH: Gastritis - Surgical History Surgical History: (x 2) - Family History Family History: States: No Known Family Hx - Living Arrangements Living Arrangements: With Family - Social History Current smoker - smoking cessation education provided: No Alcohol: None Drugs: Denies - Home Medications Home Medications: Ambulatory Orders Medication Instructions Recorded Famotidine [Pepcid] 20 mg PO Q12 #20 tab 11/01/16 Ondansetron [Zofran] 4 mg PO Q8H #10 tab 11/01/16 Ondansetron [Zofran] 4 mg PO Q8H #10 tab 01/06/17 Pantoprazole Sodium [Protonix] 40 mg PO DAILY #30 tablet 01/06/17 Acetaminophen with Codeine 1 tab PO Q6H PRN #10 tab 03/08/17 [Tylenol with Codeine No. 3 300 mg-30 mg] Ciprofloxacin [Cipro] 500 mg PO BID #13 tab 03/08/17 metroNIDAZOLE [Flagyl] 500 mg PO TID #20 tab 03/08/17 Dicyclomine [Bentyl] 10 mg PO QID PRN #30 cap 05/23/17 Omeprazole 40 mg PO DAILY #30 tab 05/23/17 DiphenhydrAMINE [Benadryl] 50 mg PO Q6H #20 cap 05/26/17 Famotidine [Pepcid] 20 mg PO BID #20 tab 05/26/17 Prednisone 50 mg PO DAILY #4 tab 05/26/17 Nitrofurantoin Macrocrystals 100 mg PO BID #14 cap 07/15/17 [Macrobid] Omeprazole 40 mg PO DAILY #30 cap 07/15/17 - Allergies Allergies/Adverse Reactions: Allergies Allergy/AdvReac Type Severity Reaction Status Date / Time nut - unspecified Allergy RASH Verified 07/15/17 12:02 Penicillins Allergy RASH Verified 05/26/17 08:58 Review of Systems ROS Statement: Except As Marked, All Systems Reviewed And Found Negative Constitutional: Positive for: Fever. Negative for: Chills, Weakness Cardiovascular: Negative for: Chest Pain Respiratory: Negative for: Cough, Shortness of Breath Gastrointestinal: Positive for: Nausea, Vomiting, Abdominal Pain, Diarrhea Genitourinary Female: Positive for: Dysuria, Frequency. Negative for: Incontinence, Hematuria, Vaginal Discharge, Vaginal Bleeding Physical Exam - Reviewed Nursing Documentation Reviewed: Yes Vital Signs Reviewed: Yes - Physical Exam Appears: Positive for: Well, Non-toxic, No Acute Distress Skin: Negative for: Rash Eye Exam: Positive for: Normal appearance, EOMI, PERRL Cardiovascular/Chest: Positive for: Regular Rate, Rhythm Respiratory: Positive for: Normal Breath Sounds. Negative for: Respiratory Distress Gastrointestinal/Abdominal: Positive for: Tenderness (Mild tenderness in all 4 quadrants with suprapubic tenderness, no rebound or guarding). Negative for: Distended, Guarding, Rebound Back: Negative for: L CVA Tenderness, R CVA Tenderness Extremity: Positive for: Normal ROM Neurologic/Psych: Positive for: Alert, Oriented - Laboratory Results Result Diagrams: 07/15/17 12:31 07/15/17 12:31 Urine POC: Negative Urine dip results: Positive for: Leukocyte Esterase (small). Negative for: Blood, Nitrate, Ketones, Glucose, Bilirubin, Protein - ECG O2 Sat by Pulse Oximetry: 98 Pulse Ox Interpretation: Normal - Other Rad Abd US X-Ray: Read By Radiologist X-Ray Interpretation: fatty liver, no acute finding Medical Decision Making Medical Decision Makin-year-old female with abdominal pain, vomiting, diarrhea and dysuria. Plan: CBC CMP Lipase Abd US IVF UA and culture IV toradol 30 mg PO maalox PO pepcid 20 mg Patient is aware of all diagnostic testing results, all questions answered. UTI noted. Initial dose of Macrobid was given an ED. PMD is [facility], case was d/w Dr. Felder, family practice resident who was made of diagnostic testing results. Patient has follow up next week with clinic and LFTs will be repeated at that time. Patient is stable for discharge with rx macrobid for UTI. Will also give rx omeprazole as patient is out of this medication. Patient was instructed to follow up as scheduled next week with clinic. Disposition - Clinical Impression Clinical Impression: Urinary tract infection, Gastritis - Patient ED Disposition Is Patient to be Admitted: No Counseled Patient/Family Regarding: Studies Performed, Diagnosis, Need For Followup, Rx Given - Disposition Referrals: [facility] [Outside] Disposition: Routine/Home Disposition Time: 14:54 Condition: STABLE Additional Instructions: Take prescription medications as directed. Drink plenty of fluids. Follow bland diet. Follow-up as scheduled next week with clinic and have lab work repeated at that time. Prescriptions: Nitrofurantoin Macrocrystals [Macrobid] 100 mg PO BID #14 cap Omeprazole 40 mg PO DAILY #30 cap Instructions: Urinary Tract Infections in Adults, Gastritis (DC) Forms: [employer] (Indian) Print Language: PASHTO Results - Lab Results Lab Results: 07/15/17 07/15/17 07/15/17 12:31 12:31 12:31 WBC 8.2 RBC 4.54 Hgb 11.0 L Hct 33.4 L MCV 73.5 L D MCH 24.2 L MCHC 33.0 RDW 17.4 H Plt Count 392 MPV 7.0 L Neut % (Auto) 76.2 H Lymph % (Auto) 13.7 L [place] % (Auto) 7.7 Eos % (Auto) 1.9 Baso % (Auto) 0.5 Neut # (Auto) 6.2 Lymph # (Auto) 1.1 [place] # (Auto) 0.6 Eos # (Auto) 0.2 Baso # (Auto) 0.0 Sodium 138 Potassium 3.7 Chloride 102 Carbon Dioxide 27 Anion Gap 13 BUN 11 Creatinine 0.8 Est GFR ( Amer) > 60 Est GFR (Non-Af Amer) > 60 Random Glucose 97 Calcium 8.4 Total Bilirubin 0.5 AST 81 H D ALT 100 H D Alkaline Phosphatase 271 H D Total Protein 6.4 Albumin 3.1 L Globulin 3.3 Albumin/Globulin Ratio 0.9 L Lipase 47 Urine Color Yellow Urine Clarity Cloudy Urine pH 6.0 Ur Specific [place] 1.018 Urine Protein Negative Urine Glucose (UA) Neg Urine Ketones Negative Urine Blood Negative Urine Nitrate Negative Urine Bilirubin Negative Urine Urobilinogen 0.2-1.0 Ur Leukocyte Esterase Mod Urine RBC (Auto) 5 H Urine Microscopic WBC 95 H Ur Squamous Epith Cells 1 Urine Bacteria Rare Hyaline Casts 3-5 H
[2017-07-15] MEDS ORDERED: Sodium Chloride 0.9% 1,000 ML IV STA (12:25)
[2017-07-15] MEDS ORDERED: Alum-Mag Hydrox-Simethicone Susp (30 mL) PO STA (12:26)
[2017-07-15] MEDS ORDERED: Alum-Mag Hydrox-Simethicone Susp (30 mL) ONE (12:39)
[2017-07-15 12:44] LABS: BASO % 0.5 % (0.0-2.0); EOS # 0.2 K/uL (0.0-0.7); EOS % 1.9 % (0.0-4.0); LYMPH # 1.1 K/uL (1.0-4.3); LYMPH % 13.7 % (20.0-40.0); MEAN CELL VOLUME 73.5 fl (81.0-99.0); MEAN CORPUSCULAR HEMOGLOBIN 24.2 pg (27.0-31.0); MONO # 0.6 K/uL (0.0-0.8); MONO % 7.7 % (0.0-10.0); NEUT # 6.2 K/uL (1.8-7.0); NEUT % 76.2 % (50.0-75.0); NRBC % 0.1 % (0.0-0.0); RBC 4.54 Mil/uL (3.80-5.20); RED CELL DISTRIBUTION WIDTH 17.4 % (11.5-14.5); WHITE BLOOD COUNT 8.2 K/uL (4.8-10.8)
[2017-07-15 12:56] LABS: ALB/GLOB RATIO 0.9 (1.0-2.1); ALBUMIN 3.1 g/dL (3.5-5.0); ALT/SGPT 100 U/L (9-52); AST/SGOT 81 U/L (14-36); BLOOD UREA NITROGEN 11 mg/dl (7-17); CALCIUM 8.4 mg/dL (8.4-10.2); GFR AFRICAN-AMERICAN > 60; GFR NON-AFRICAN AMERICAN > 60; LIPASE 47 U/L (23-300)
[2017-07-15 13:13] LABS: SQUAMOUS EPITHIAL 1 /hpf (0-5); URINE BACTERIA RARE (<OCC); URINE BILIRUBIN NEGATIVE (NEGATIVE); URINE BLOOD NEGATIVE (NEGATIVE); URINE CLARITY CLOUDY (Clear); URINE COLOR YELLOW (YELLOW); URINE GLUCOSE (UA) NEG (Normal); URINE LEUKOCYTE ESTERASE MOD Leu/uL (Negative); URINE PROTEIN NEGATIVE (NEGATIVE); URINE UROBILINOGEN 0.2-1.0 mg/dL (0.2-1.0)
--- NOTE | 2017-07-15 14:10 | US ---
HISTORY: Diffuse abdominal pain, h/o gastritis COMPARISON: Comparison made with CT scan abdomen pelvis an abdominal ultrasound dated 05/23/2017 and 11/04/2016 respectively. TECHNIQUE: Sonographic evaluation of the abdomen. FINDINGS: LIVER: Measures 17.5 cm demonstrated mild fatty hepatic infiltration on that study. . Normal echogenicity of the liver parenchyma. No mass. No intrahepatic bile duct dilatation. GALLBLADDER: Unremarkable. No gallstones. COMMON BILE DUCT: Measures 4.4 mm. No stones. No dilatation. PANCREAS: Unremarkable as visualized. No mass. No ductal dilatation. RIGHT KIDNEY: Measures 10.4 x 5.3 x 4.3cm. Normal echogenicity. No calculus, mass, or hydronephrosis. LEFT KIDNEY: Measures 12.7 x 5.7 x 5.4cm. Normal echogenicity. No calculus, mass, or hydronephrosis. SPLEEN: Normal in size (8.9 cm) and contour. No mass. AORTA: No aneurysmal dilatation. IVC: Unremarkable. OTHER FINDINGS: None. IMPRESSION: No acute findings.
== END 2017-07-15 15:23 | disposition home or self-care (01) ==
LOC: H.ER 11:38
DX: N39.0 Urinary tract infection, site not specified (principal); K29.70 Gastritis, unspecified, without bleeding; Z88.0 Allergy status to penicillin
CPT/HCPCS: 76700; 80053; 81003; 81025; 83690; 85025; 87086; 87181; 96374; 99284; J1885; J7040

== ENCOUNTER 2017-07-18 12:09 | Day surgery (SDC) | payer SELFPAY ==
[2017-07-18] MEDS ORDERED: Lactated Ringer's 500 ML IV ONE (12:41)
[2017-07-18] MEDS ORDERED: Propofol 10 mg/ml Inj (20 ML) ONE ×2 (14:09→14:52)
[2017-07-18] MEDS ORDERED: Lidocaine PF 2% (5 ml) Inj (For Cardiac Arrhy) IV ONE (14:10)
[2017-07-18 16:01] VITALS: BP 92/61; PULSE 59; RESP 16; TEMP 98; O2SAT 98
== END 2017-07-18 16:16 | disposition home or self-care (01) ==
LOC: H.ENDO 12:09
PROVIDERS: ATTEND Internal Medicine Gastroenterology
DX: K29.70 Gastritis, unspecified, without bleeding (principal); K20.9 Esophagitis, unspecified; K92.2 Gastrointestinal hemorrhage, unspecified; K57.30 Diverticulosis of large intestine without perforation or abscess without bleeding; K52.9 Noninfective gastroenteritis and colitis, unspecified; K64.8 Other hemorrhoids; B96.81 Helicobacter pylori [H. pylori] as the cause of diseases classified elsewhere
CPT/HCPCS: 43239; 45380; 88305; J2704; J7120

== ENCOUNTER 2017-09-30 04:26 | Emergency (ER) | payer OTHER, SELFPAY ==
[2017-09-30 04:33] VITALS: BMI 18.6
[2017-09-30 04:39] VITALS: TEMP 98.5
[2017-09-30] MEDS ORDERED: Sodium Chloride 0.9% 1,000 ML IV STA (04:42)
[2017-09-30 04:58] LABS: BASO % 0.7 % (0.0-2.0); EOS # 0.4 K/uL (0.0-0.7); EOS % 7.4 % (0.0-4.0); HEMOGLOBIN 10.2 g/dL (12.0-16.0); LYMPH # 0.7 K/uL (1.0-4.3); LYMPH % 13.5 % (20.0-40.0); MEAN CELL VOLUME 68.8 fl (81.0-99.0); MEAN CORPUSCULAR HEMOGLOBIN 22.1 pg (27.0-31.0); MEAN CORPUSCULAR HGB CONC 32.2 g/dL (33.0-37.0); MEAN PLATELET VOLUME 6.6 fl (7.2-11.7); MONO # 0.4 K/uL (0.0-0.8); MONO % 8.4 % (0.0-10.0); NEUT # 3.7 K/uL (1.8-7.0); RBC 4.61 Mil/uL (3.80-5.20); RED CELL DISTRIBUTION WIDTH 19.5 % (11.5-14.5); WHITE BLOOD COUNT 5.3 K/uL (4.8-10.8)
[2017-09-30 05:07] LABS: ALB/GLOB RATIO 0.9 (1.0-2.1); ALT/SGPT 58 U/L (9-52); AST/SGOT 38 U/L (14-36); BLOOD UREA NITROGEN 13 mg/dl (7-17); CALCIUM 8.5 mg/dL (8.4-10.2); GFR AFRICAN-AMERICAN > 60; GFR NON-AFRICAN AMERICAN > 60; LIPASE 166 U/L (23-300)
[2017-09-30] MEDS ORDERED: Sodium Chloride 0.9% 50 ML IV ONE (05:20)
[2017-09-30] MEDS ORDERED: Iohexol 300 100 ML IJ ONE (05:20)
[2017-09-30 05:35] LABS: SQUAMOUS EPITHIAL 1 /hpf (0-5); URINE BILIRUBIN NEGATIVE (NEGATIVE); URINE BLOOD NEGATIVE (NEGATIVE); URINE CLARITY SLIGHTY-CLOUDY (Clear); URINE COLOR YELLOW (YELLOW); URINE GLUCOSE (UA) NEG (Normal); URINE LEUKOCYTE ESTERASE NEG Leu/uL (Negative); URINE PROTEIN NEGATIVE (NEGATIVE); URINE UROBILINOGEN 0.2-1.0 mg/dL (0.2-1.0)
--- NOTE | 2017-09-30 05:51 | ED PDOC ---
HPI: Abdomen Time Seen by Provider: 09/30/17 04:34 Chief Complaint (Nursing): Abdominal Pain Chief Complaint (Provider): Abdominal pain History Per: Patient History/Exam Limitations: no limitations Onset/Duration Of Symptoms: Hrs (x2) Current Symptoms Are (Timing): Still Present Quality Of Discomfort: Sharp (stabbing) Associated Symptoms: Diarrhea Additional Complaint(s): 37 year old female, with a past medical history of gastritis, presented to ED complaining of sharp stabbing abdominal pain with onset of 2 hours. Patient reports she developed an acute pain associated with nausea and non bloody and non bilious diarrhea. She indicates that pain began after she ate chicken and shrimp. She also states that she takes omeprazole and mesalamine. PCP: none provided Past Medical History Reviewed: Historical Data, Nursing Documentation, Vital Signs Vital Signs: Last Vital Signs Temp 98.5 F 09/30/17 04:33 Pulse 78 09/30/17 07:11 Resp 18 09/30/17 07:11 BP 94/55 L 09/30/17 07:11 Pulse Ox 98 09/30/17 07:11 - Medical History PMH: Crohn's Disease, Gastritis - Surgical History Surgical History: (x 2) - Family History Family History: States: Unknown Family Hx - Home Medications Home Medications: Ambulatory Orders Medication Instructions Recorded Dicyclomine [Bentyl] 20 mg PO Q12 PRN #20 tab 09/30/17 Ondansetron ODT [Zofran ODT] 4 mg PO Q6 #12 odt 09/30/17 - Allergies Allergies/Adverse Reactions: Allergies Allergy/AdvReac Type Severity Reaction Status Date / Time Penicillins Allergy Severe RASH Verified 09/30/17 04:33 nut - unspecified Allergy RASH Verified 09/30/17 04:33 Review of Systems ROS Statement: Except As Marked, All Systems Reviewed And Found Negative Gastrointestinal: Positive for: Nausea, Abdominal Pain, Diarrhea Physical Exam - Reviewed Nursing Documentation Reviewed: Yes Vital Signs Reviewed: Yes - Physical Exam Appears: Positive for: Non-toxic, No Acute Distress, Uncomfortable Head Exam: Positive for: ATRAUMATIC, NORMAL INSPECTION, NORMOCEPHALIC Skin: Positive for: Normal Color, Warm, Dry Eye Exam: Positive for: Normal appearance ENT: Positive for: Normal ENT Inspection Neck: Positive for: Normal, Painless ROM Cardiovascular/Chest: Positive for: Regular Rate, Rhythm. Negative for: Murmur Respiratory: Positive for: Normal Breath Sounds. Negative for: Wheezing, Respiratory Distress Gastrointestinal/Abdominal: Positive for: Tenderness (RLQ and epigastric tenderness) Back: Positive for: Normal Inspection. Negative for: L CVA Tenderness, R CVA Tenderness Extremity: Positive for: Normal ROM Neurologic/Psych: Positive for: Alert, Oriented. Negative for: Motor/Sensory Deficits - Laboratory Results Result Diagrams: 09/30/17 04:53 09/30/17 04:53 - ECG O2 Sat by Pulse Oximetry: 97 (RA) Pulse Ox Interpretation: Normal Medical Decision Making Medical Decision Making: Initial Impression: Abdominal pain Initial Plan: CT abd/pelvis ECG Urine dipstick Urine Reglan 10mg IV Morphine 2mg IV Sodium chloride 1000mL IV 06:50 Upon reevaluation, patient's symptoms have improved and is stable for discharge. Patient condition has improved with diagnosis of enterocolitis. Scribe Attestation: Documented by Rey Quintero acting as a scribe for Vadim Torrez MD. Provider Scribe Attestation: All medical record entries made by the Scribe were at my direction and personally dictated by me. I have reviewed the chart and agree that the record accurately reflects my personal performance of the history, physical exam, medical decision making, and the department course for this patient. I have also personally directed, reviewed, and agree with the discharge instructions and disposition. Disposition - Clinical Impression Clinical Impression: Enterocolitis - Disposition Referrals: [facility] [Outside] Disposition Time: 06:50 Condition: STABLE Prescriptions: Dicyclomine [Bentyl] 20 mg PO Q12 PRN #20 tab PRN Reason: abdominal pain/diarrhea Ondansetron ODT [Zofran ODT] 4 mg PO Q6 #12 odt Instructions: Viral Gastroenteritis Forms: [employer] (Peruvian) Print Language: MACEDONIAN
--- NOTE | 2017-09-30 06:25 | CT ---
EXAM: CT Abdomen and Pelvis With Intravenous Contrast CLINICAL HISTORY: 37 years old, female; Pain; Abdominal pain; Flank; Right; Additional info: Right sided abd pain TECHNIQUE: Axial computed tomography images of the abdomen and pelvis with intravenous contrast. All CT scans at this facility use one or more dose reduction techniques, viz.: automated exposure control; ma/kV adjustment per patient size (including targeted exams where dose is matched to indication; i.e. head); or iterative reconstruction technique. Coronal and sagittal reformatted images were created and reviewed. CONTRAST: 80 mL of [id number] administered intravenously. COMPARISON: CT - ABD PELVIS PO IV CONTRAST 2017-05-23 20:23 FINDINGS: Limitations: Motion artifact - mild. Lung bases: No acute findings. ABDOMEN: Liver: Unremarkable. No mass. Gallbladder and bile ducts: No calcified stones. No ductal dilation. Pancreas: No ductal dilation. No mass. Spleen: No splenomegaly. Adrenals: Hypertrophy of adrenal glands, stable. 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 No hydronephrosis. Stomach and bowel: Fluid within small bowel. Fluid/loose stool within large bowel. Several scattered mild moderately thickened loops of small bowel. Mild mural thickening of large bowel. Several scattered mildly distended loops of small bowel, likely ileus. PELVIS: Appendix: No definite findings to suggest acute appendicitis. Bladder: Unremarkable. Reproductive: Unremarkable as visualized. ABDOMEN and PELVIS: Intraperitoneal space: Small free fluid within lower abdomen/pelvis. No free air. Bones/joints: No acute fracture. Soft tissues: Unremarkable. Vasculature: Unremarkable. No aneurysm. Lymph nodes: Several subcentimeter short axis mesenteric lymph nodes, nonspecific. IMPRESSION: 1. Enterocolitis. Consider inflammatory or infectious etiologies. 2. Incidental/non-acute findings are described above.
--- NOTE | 2017-09-30 07:11 | CARD ---
APPROVED REPORT EKG Measurement Heart [id number] <Conclusion> Normal sinus rhythm Low voltage QRS ??Septal infarct, age undetermined (Check V2 lead placement.) Abnormal ECG
[2017-09-30 07:13] VITALS: BP 94/55; PULSE 78; RESP 18
[2017-09-30 07:24] VITALS: O2SAT 97
== END 2017-09-30 07:13 | disposition home or self-care (01) ==
LOC: H.ER 04:26
DX: K52.9 Noninfective gastroenteritis and colitis, unspecified (principal); K50.90 Crohn's disease, unspecified, without complications; Z88.0 Allergy status to penicillin
CPT/HCPCS: 74177; 80053; 81003; 81025; 83690; 85025; 93005; 96365; 96375; 99284; J2270; J2765; J7030; Q9967

== ENCOUNTER 2017-10-06 22:16 | Emergency (ER) | payer OTHER, SELFPAY ==
[2017-10-06 22:16] VITALS: BMI 18.6
[2017-10-06 23:08] VITALS: TEMP 98.1; O2SAT 98
[2017-10-06] MEDS ORDERED: Iohexol 240 (50 ml) PO ONE (23:49)
--- NOTE | 2017-10-07 00:07 | ED PDOC ---
HPI: Abdomen Time Seen by Provider: 10/06/17 23:43 Chief Complaint (Nursing): Abdominal Pain Chief Complaint (Provider): Abdominal Pain History Per: Patient History/Exam Limitations: no limitations Onset/Duration Of Symptoms: Other (x1 week) Outside of [place] travel?: No Current Symptoms Are (Timing): Still Present Location Of Pain/Discomfort: Diffuse Associated Symptoms: Vomiting. denies: Fever Last Bowel Movement: Today Additional Complaint(s): 37 year old female presents to ED with complaints of worsening abdominal pain since being seen at this facility 1 week ago and has a history of gastritis and ulcers. Patient was diagnosed with gastroenteritis and discharged with Bentyl, but notes that the pain has not mitigated. Localizes pain to the epigastric region and LUQ with radiation of pain to the left flank. (+) vomiting x15+ episodes (non-bloody, non-bilious). (-) fever. Patient notes having a normal bowwel movement x4.5 hours prior to ED arrival. Of note, patient has been taking Mesalamine for months as prescribed by her GI specialist Dr. Cason. PCP: None Past Medical History Reviewed: Historical Data, Nursing Documentation, Vital Signs Vital Signs: Last Vital Signs Temp 98.1 F 10/06/17 23:05 Pulse 90 10/06/17 23:05 Resp 16 10/06/17 23:05 BP 98/64 L 10/06/17 23:05 Pulse Ox 98 10/07/17 05:46 - Medical History PMH: Crohn's Disease, Gastritis - Surgical History Surgical History: (x 2) - Family History Family History: States: Unknown Family Hx - Living Arrangements Living Arrangements: With Family - Social History Drugs: Denies - Home Medications Home Medications: Ambulatory Orders Medication Instructions Recorded Dicyclomine [Bentyl] 20 mg PO Q12 PRN #20 tab 09/30/17 Ondansetron ODT [Zofran ODT] 4 mg PO Q6 #12 odt 09/30/17 Ciprofloxacin [Cipro] 500 mg PO BID 7 Days tab 10/07/17 Omeprazole 20 mg PO DAILY #30 capsule. 10/07/17 metroNIDAZOLE [Flagyl] 500 mg PO BID 7 Days tab 10/07/17 - Allergies Allergies/Adverse Reactions: Allergies Allergy/AdvReac Type Severity Reaction Status Date / Time Penicillins Allergy Severe RASH Verified 09/30/17 04:33 nut - unspecified Allergy RASH Verified 09/30/17 04:33 Review of Systems ROS Statement: Except As Marked, All Systems Reviewed And Found Negative Constitutional: Negative for: Fever Gastrointestinal: Positive for: Vomiting, Abdominal Pain (epigastrum and LUQ radiating to left flank). Negative for: Diarrhea, Constipation, Hematemesis Physical Exam - Reviewed Nursing Documentation Reviewed: Yes Vital Signs Reviewed: Yes - Physical Exam Appears: Positive for: Non-toxic, Uncomfortable Skin: Positive for: Normal Color, Warm, Dry Eye Exam: Positive for: Normal appearance ENT: Positive for: Normal ENT Inspection Cardiovascular/Chest: Positive for: Regular Rate, Rhythm Respiratory: Positive for: Normal Breath Sounds. Negative for: Respiratory Distress Gastrointestinal/Abdominal: Positive for: Soft, Tenderness (diffuse tenderness, worse in the RLQ and LUQ), Guarding (voluntary). Negative for: Normal Exam, Rebound Back: Positive for: Normal Inspection. Negative for: L CVA Tenderness, R CVA Tenderness Extremity: Positive for: Normal ROM. Negative for: Deformity Neurologic/Psych: Positive for: Alert, Oriented. Negative for: Motor/Sensory Deficits - Laboratory Results Result Diagrams: 10/07/17 00:35 10/07/17 00:35 - ECG O2 Sat by Pulse Oximetry: 98 (RA) Pulse Ox Interpretation: Normal Medical Decision Making Medical Decision Makin Initial impression: 37 year old female with history of gastritis returning to ED with worsening abdominal pain Initial plan: As patient's previous CT showed enterocolitis, it is possible that enterocolitis is worsening now. Possible acute intra-abdominal process such as appendicitis, cholecystitis, and others are not listed but considered. Will repeat CT given level of discomfort on exam. * CTA A/P * Labs * Lact Acid * Lipase * Iohexol 50mL PO * Protonix Inj 40mg IVP * Zofran Inj4mg IVP * UCx * UA * Re-eval 0457 CT FINDINGS: The liver is normal. The spleen is normal. The pancreas is normal. No gallstones. No hydronephrosis or perinephric stranding. There are portions of small and large bowel demonstrating thickened indistinct griffin supportive of acute infectious/inflammatory process. Most notably, small bowel loops in the left upper quadrant and portions of the right colon. There are mildly dilated loops of small bowel throughout the abdomen and pelvis , however there is no abrupt transition to decompressed bowel to suggest obstruction. The scattered diffuse small and large bowel thickening and dilation are similar to that seen on prior study with slightly variation in the distribution and continue to be supportive of enteritis with probable ileus. I would suspect inflammatory bowel disease. The appendix is identified on coronal images 41 through 51. It is distended with fluid measuring 8 mm in diameter however this is unchanged from prior study and felt to be secondary to the diffuse inflammatory/infectious bowel process extending from the cecum. Numerous scattered mesenteric lymph nodes are present. IMPRESSION: Findings similar to prior demonstrating scattered areas of small and large bowel wall thickening and dilation - appearance supportive of acute infectious/inflammatory process raising the possibility of inflammatory bowel disease. 0541 Upon re-evaluation patient reports feeling much better and is tolerating PO. Will initiate course of antibiotics given refractory symptoms. Patient will have an expedited appointment with family practice as follow up. Provider explained the results to the patient and she is to receive 1 dose of antibiotics in ED and will subsequently follow up as outpatient. Patient verbalizes understanding of the importance of follow up. * Ciprofloxacin 400mg in 200 mL IVPB * Flagyl 500mg in 100mL IVPB Dx: enterocolitis Scribe Attestation: Documented by Roberta Hatfield acting as a scribe for Jonathan Gibson MD. Scribe Attestation: All medical record entries made by the Scribe were at my direction and personally dictated by me. I have reviewed the chart and agree that the record accurately reflects my personal performance of the history, physical exam, medical decision making, and the department course for this patient. I have also personally directed, reviewed, and agree with the discharge instructions and disposition. Disposition - Clinical Impression Clinical Impression: Enterocolitis - Disposition Referrals: [facility] [Outside] Keith Cason MD [Medical Doctor] - Disposition: Routine/Home Disposition Time: 05:45 Condition: IMPROVED Prescriptions: Ciprofloxacin [Cipro] 500 mg PO BID 7 Days tab metroNIDAZOLE [Flagyl] 500 mg PO BID 7 Days tab Omeprazole 20 mg PO DAILY #30 capsule.dr Instructions: Inflammatory Bowel Disease, Nausea and Vomiting, Adult Forms: [employer] ([place] Citizen) Print Language: ENGLISH
[2017-10-07 00:55] LABS: BASO % 0.4 % (0.0-2.0); EOS # 0.1 K/uL (0.0-0.7); EOS % 2.4 % (0.0-4.0); HEMOGLOBIN 11.3 g/dL (12.0-16.0); LYMPH # 0.8 K/uL (1.0-4.3); LYMPH % 12.5 % (20.0-40.0); MEAN CELL VOLUME 68.4 fl (81.0-99.0); MEAN CORPUSCULAR HEMOGLOBIN 21.8 pg (27.0-31.0); MEAN CORPUSCULAR HGB CONC 31.9 g/dL (33.0-37.0); MONO # 0.4 K/uL (0.0-0.8); MONO % 5.9 % (0.0-10.0); NEUT # 4.9 K/uL (1.8-7.0); NEUT % 78.8 % (50.0-75.0); NRBC % 0.2 % (0.0-0.0); RBC 5.19 Mil/uL (3.80-5.20); RED CELL DISTRIBUTION WIDTH 19.4 % (11.5-14.5); WHITE BLOOD COUNT 6.2 K/uL (4.8-10.8)
[2017-10-07 01:00] LABS: SQUAMOUS EPITHIAL 4 /hpf (0-5); URINE BACTERIA RARE (<OCC); URINE BILIRUBIN NEGATIVE (NEGATIVE); URINE BLOOD NEGATIVE (NEGATIVE); URINE CALCIUM OXALATE CRYSTALS OCC /hpf (<OCC); URINE CLARITY CLOUDY (Clear); URINE COLOR YELLOW (YELLOW); URINE GLUCOSE (UA) NEG (Normal); URINE HYALINE CAST 0-2 /hpf (0-2); URINE LEUKOCYTE ESTERASE NEG Leu/uL (Negative); URINE PROTEIN 30 mg/dL (NEGATIVE); URINE UROBILINOGEN 0.2-1.0 mg/dL (0.2-1.0)
[2017-10-07 01:02] LABS: ALB/GLOB RATIO 0.9 (1.0-2.1); ALBUMIN 3.2 g/dL (3.5-5.0); ALT/SGPT 62 U/L (9-52); AST/SGOT 48 U/L (14-36); BLOOD UREA NITROGEN 9 mg/dl (7-17); CALCIUM 8.9 mg/dL (8.4-10.2); GFR AFRICAN-AMERICAN > 60; GFR NON-AFRICAN AMERICAN > 60; LIPASE 52 U/L (23-300)
[2017-10-07] MEDS ORDERED: Iohexol 240 (50 ml) ONE (01:34)
[2017-10-07] MEDS ORDERED: Sodium Chloride 0.9% 100 ML ONE (03:19)
[2017-10-07] MEDS ORDERED: Iohexol 300 100 ML IJ ONE (03:20)
--- NOTE | 2017-10-07 04:57 | CT ---
EXAM: CT Abdomen and Pelvis With Intravenous Contrast EXAM DATE/TIME: 10/06/2017 11:50 PM CLINICAL HISTORY: 37 years old, female; Pain; Abdominal pain; Localized; Lower; Additional info: Worsening abd pain, HX of gastritis and ulcers TECHNIQUE: Axial computed tomography images of the abdomen and pelvis with intravenous contrast. All CT scans at this facility use one or more dose reduction techniques, viz.: automated exposure control; ma/kV adjustment per patient size (including targeted exams where dose is matched to indication; i.e. head); or iterative reconstruction technique. Coronal and sagittal reformatted images were created and reviewed. CONTRAST: 80 mL of [id number] administered intravenously. COMPARISON: CT - ABD PELVIS IV CONTRAST ONLY 2017-09-30 05:28 FINDINGS: The liver is normal. The spleen is normal. The pancreas is normal. No gallstones. No hydronephrosis or perinephric stranding. There are portions of small and large bowel demonstrating thickened indistinct griffin supportive of acute infectious/inflammatory process. Most notably, small bowel loops in the left upper quadrant and portions of the right colon. There are mildly dilated loops of small bowel throughout the abdomen and pelvis, however there is no abrupt transition to decompressed bowel to suggest obstruction. The scattered diffuse small and large bowel thickening and dilation are similar to that seen on prior study with slightly variation in the distribution and continue to be supportive of enteritis with probable ileus. I would suspect inflammatory bowel disease. The appendix is identified on coronal images 41 through 51. It is distended with fluid measuring 8 mm in diameter however this is unchanged from prior study and felt to be secondary to the diffuse inflammatory/infectious bowel process extending from the cecum. Numerous scattered mesenteric lymph nodes are present. IMPRESSION: Findings similar to prior demonstrating scattered areas of small and large bowel wall thickening and dilation - appearance supportive of acute infectious/inflammatory process raising the possibility of inflammatory bowel disease.
[2017-10-07] MEDS ORDERED: Ciprofloxacin 400mg/200ml D5W 400 MG/200 ML BAG IVPB STA (05:19)
[2017-10-07] MEDS ORDERED: metroNIDAZOLE 500mg/100ml NS 100 ML IVPB STA (05:19)
[2017-10-07] MEDS ORDERED: Ciprofloxacin 400mg/200ml D5W 400 MG/200 ML BAG IVPB ONE (05:33)
[2017-10-07] MEDS ORDERED: metroNIDAZOLE 500mg/100ml NS 100 ML IVPB ONE (06:41)
[2017-10-07 08:06] VITALS: BP 100/70; PULSE 80; RESP 18
== END 2017-10-07 08:13 | disposition home or self-care (01) ==
LOC: H.ER 22:16
DX: K52.9 Noninfective gastroenteritis and colitis, unspecified (principal); K50.90 Crohn's disease, unspecified, without complications; Z88.0 Allergy status to penicillin
CPT/HCPCS: 74177; 80053; 81003; 81025; 83605; 83690; 85025; 87086; 96374; 96375; 99284; C9113; J0744; J2405; Q9966; Q9967

== ENCOUNTER 2017-11-15 09:09 | Inpatient (IN) | payer SELFPAY ==
[2017-11-15 09:14] VITALS: BMI 17.7
[2017-11-15] MEDS ORDERED: Iohexol 240 (50 ml) PO ONE (09:43)
--- NOTE | 2017-11-15 09:44 | ED PDOC ---
HPI: Abdomen Time Seen by Provider: 11/15/17 09:20 Chief Complaint (Provider): Fever and Abdominal Pain History Per: Patient History/Exam Limitations: no limitations Onset/Duration Of Symptoms: Days Outside of [place] travel?: No Current Symptoms Are (Timing): Still Present Severity: None Location Of Pain/Discomfort: LLQ, Periumbilical, Suprapubic Quality Of Discomfort: "Pain" Associated Symptoms: Fever, Chills. denies: Nausea, Vomiting, Chest Pain, Constipation, Urinary Symptoms Exacerbating Factors: None Alleviating Factors: None Additional Complaint(s): 37 year old female with a past medical history of Crohn's disease (diagnosed 7 - 8 months ago) presents to the emergency department complaining of fever(tmax 102 at home) and lower abdominal pain which began on . She reports that her symptoms are associated with chills, headache( not thunderclap or worse headache of her life) and generalized body pain. Denies dysuria, frequency, vaginal bleeding, vaginal discharge, chest pain, shortness of breath, vision changes, cough. No numbness, tingles. No neck pain. PMD: [facility] Abnormal Vaginal Bleeding: No Past Medical History Reviewed: Historical Data, Nursing Documentation, Vital Signs Vital Signs: Last Vital Signs Temp 100.8 F H 11/15/17 09:13 Pulse 105 H 11/15/17 09:13 Resp BP 112/68 11/15/17 09:13 Pulse Ox 98 11/15/17 11:25 - Medical History PMH: Crohn's Disease, Gastritis - Surgical History Surgical History: (x 2) - Family History Family History: States: Unknown Family Hx - Home Medications Home Medications: Ambulatory Orders Medication Instructions Recorded Dicyclomine [Bentyl] 20 mg PO Q12 PRN #20 tab 09/30/17 Ondansetron ODT [Zofran ODT] 4 mg PO Q6 #12 odt 09/30/17 Ciprofloxacin [Cipro] 500 mg PO BID 7 Days tab 10/07/17 Omeprazole 20 mg PO DAILY #30 capsule. 10/07/17 metroNIDAZOLE [Flagyl] 500 mg PO BID 7 Days tab 10/07/17 - Allergies Allergies/Adverse Reactions: Allergies Allergy/AdvReac Type Severity Reaction Status Date / Time Penicillins Allergy Severe RASH Verified 09/30/17 04:33 nut - unspecified Allergy RASH Verified 09/30/17 04:33 Review of Systems ROS Statement: Except As Marked, All Systems Reviewed And Found Negative Constitutional: Positive for: Fever, Chills, Other (body aches) ENT: Negative for: Nose Discharge Cardiovascular: Negative for: Chest Pain Respiratory: Negative for: Cough, Shortness of Breath Gastrointestinal: Positive for: Abdominal Pain (lower). Negative for: Nausea, Vomiting Genitourinary Female: Negative for: Dysuria, Frequency, Vaginal Discharge, Vaginal Bleeding Musculoskeletal: Negative for: Back Pain Neurological: Positive for: Headache (mild) Physical Exam - Reviewed Nursing Documentation Reviewed: Yes Vital Signs Reviewed: Yes - Physical Exam Appears: Positive for: Non-toxic, No Acute Distress Head Exam: Positive for: ATRAUMATIC, NORMAL INSPECTION, NORMOCEPHALIC Skin: Positive for: Normal Color, Warm, Dry. Negative for: Rash Eye Exam: Positive for: Normal appearance, EOMI, PERRL. Negative for: Nystagmus ENT: Positive for: Normal ENT Inspection. Negative for: Nasal Congestion, Tonsillar Exudate, Tonsillar Swelling Neck: Positive for: Normal, Painless ROM, Supple Cardiovascular/Chest: Positive for: Regular Rate, Rhythm, Chest Non Tender. Negative for: Murmur, Tachycardia Respiratory: Positive for: Normal Breath Sounds. Negative for: Rales, Rhonchi, Wheezing, Respiratory Distress Gastrointestinal/Abdominal: Positive for: Bowel Sounds, Soft, Tenderness ( periumbilical, suprapubic and right lower quadrant tenderness). Negative for: Mass, Guarding, Rebound Back: Positive for: Normal Inspection. Negative for: L CVA Tenderness, R CVA Tenderness, Vertebral Tenderness, Muscle Spasm Extremity: Positive for: Normal ROM, Tenderness. Negative for: Calf Tenderness , Deformity, Swelling Neurologic/Psych: Positive for: Alert, Oriented, Gait - Laboratory Results Result Diagrams: 11/15/17 09:30 11/15/17 09:30 Interpretation Of Abn Labs: 8.9 hg - ECG O2 Sat by Pulse Oximetry: 98 (RA) Pulse Ox Interpretation: Normal - CT Scan/US ct Other Rad Studies (CT/US): Read By Radiologist Other Rad Interpretation: colitis - Progress ED Course And Treament: 1400: Spoke with Dr. Browning for Dr. Cason. Wants pt. to be admitted. Will give cipro and flagyl. Spoke with [facility] resident. Will admit. Medical Decision Making Medical Decision Makin Initial Impression 37 year old female presenting with fever and abdominal pain Initial Plan: * VBG * CT ABD PELV PO & IV Contrast * CMP * Magnesium * Phosphorous * Upreg * Udip * CBC * Partial Thromboplastin * Prothrombin Time * NS 1000 m IV 1000 mls/hr * Iohexol 50 mL PO * Toradol 15 mg IVP * Blood Culture * Urine Culture * Vital Signs Q15M * Urinalysis * Reevaluation 09 Vital Documentation Temp: 100.8 Pulse: 105 H BP: 112/62 O2 sat: 98 --------- Documented by Gisselle Garcia acting as a scribe for Fortino Walsh MD. All medical record entries made by the Scribe were at my direction and personally dictated by me. I have reviewed the chart and agree that the record accurately reflects my personal performance of the history, physical exam, medical decision making, and the department course for this patient. I have also personally directed, reviewed, and agree with the discharge instructions and disposition. Disposition - Clinical Impression Clinical Impression: Colitis, Sepsis - Patient ED Disposition Is Patient to be Admitted: Yes Counseled Patient/Family Regarding: Studies Performed, Diagnosis - Disposition Disposition Time: 14:04 Condition: FAIR - Pt Status Changed To: Hospital Disposition Of: Inpatient - Admit Certification Admit to Inpatient:: After my assessment, the patient will require hospitalization for at least two midnights. This is because of the severity of symptoms shown, intensity of services needed, and/or the medical risk in this patient being treated as an outpatient. - POA Present On Arrival: None
[2017-11-15] MEDS ORDERED: Sodium Chloride 0.9% 1,000 ML IV SCH (09:45)
[2017-11-15] MEDS ORDERED: Iohexol 240 (50 ml) ONE (10:01)
[2017-11-15 10:24] LABS: VENOUS BLOOD GAS BASE EXCESS 4.5 mmol/L (0.0-2.0); VENOUS BLOOD GAS PCO2 46 mmHg (40-60); VENOUS BLOOD GAS PO2 26 mm/Hg (30-55); VENOUS BLOOD PH 7.42 (7.32-7.43)
[2017-11-15 10:26] LABS: BASO % 0.3 % (0.0-2.0); EOS # 0.2 K/uL (0.0-0.7); EOS % 3.1 % (0.0-4.0); HEMOGLOBIN 8.9 g/dL (12.0-16.0); LYMPH # 0.5 K/uL (1.0-4.3); LYMPH % 8.4 % (20.0-40.0); MEAN CORPUSCULAR HEMOGLOBIN 20.8 pg (27.0-31.0); MEAN CORPUSCULAR HGB CONC 31.6 g/dL (33.0-37.0); MEAN PLATELET VOLUME 6.8 fl (7.2-11.7); MONO # 0.4 K/uL (0.0-0.8); MONO % 7.3 % (0.0-10.0); NEUT # 4.5 K/uL (1.8-7.0); NEUT % 80.9 % (50.0-75.0); NRBC % 0.1 % (0.0-0.0); PLATELET COUNT 415 K/uL (130-400); RBC 4.26 Mil/uL (3.80-5.20); WHITE BLOOD COUNT 5.6 K/uL (4.8-10.8)
[2017-11-15 10:41] LABS: INR 1.1 (0.9-1.2); PARTIAL THROMBOPLASTIN TIME 31.3 Seconds (25.6-37.1); PROTHROMBIN TIME 12.2 Seconds (9.8-13.1)
[2017-11-15 10:48] LABS: ALB/GLOB RATIO 0.9 (1.0-2.1); ALBUMIN 2.8 g/dL (3.5-5.0); ALT/SGPT 49 U/L (9-52); AST/SGOT 48 U/L (14-36); BLOOD UREA NITROGEN 8 mg/dl (7-17); CALCIUM 8.1 mg/dL (8.4-10.2); GFR AFRICAN-AMERICAN > 60; GFR NON-AFRICAN AMERICAN > 60
[2017-11-15 10:50] LABS: SQUAMOUS EPITHIAL 8 /hpf (0-5); URINE BACTERIA RARE (<OCC); URINE BILIRUBIN NEGATIVE (NEGATIVE); URINE BLOOD NEGATIVE (NEGATIVE); URINE CLARITY CLOUDY (Clear); URINE COLOR YELLOW (YELLOW); URINE GLUCOSE (UA) NEG (Normal); URINE LEUKOCYTE ESTERASE NEG Leu/uL (Negative); URINE PROTEIN NEGATIVE (NEGATIVE); URINE UROBILINOGEN 0.2-1.0 mg/dL (0.2-1.0)
[2017-11-15] MEDS ORDERED: Sodium Chloride 0.9% 50 ML IV ONE (12:17)
[2017-11-15] MEDS ORDERED: Iohexol 300 100 ML IJ ONE (12:17)
[2017-11-15 12:49] LABS: BANDS 4 % (0-2); EOSINOPHIL 2 % (0-7); LYMPHOCYTE 9 % (20-50); MONOCYTE 6 % (0-10); NEUTROPHIL 79 % (42-75); TOTAL CELLS COUNTED 100
[2017-11-15 12:50] LABS: ANISOCYTOSIS SLIGHT; HYPOCHROMIC MODERATE; MICROCYTOSIS MODERATE; OVALOCYTES SLIGHT; PLATELET ESTIMATE SLIGHTLY INCREASED (NORMAL); SCHISTOCYTES SLIGHT; TARGET CELLS SLIGHT
--- NOTE | 2017-11-15 12:59 | CT ---
Date of service: 11/15/2017 PROCEDURE: CT Abdomen and Pelvis with contrast HISTORY: Abdominal pain and fever COMPARISON: 10/07/2017 CT abdomen and pelvis. 10/14/2017 pelvic ultrasound TECHNIQUE: Contrast dose: 95 cc Omnipaque 300 Radiation dose: Total exam DLP = 200.60 mGy-cm. This CT exam was performed using one or more of the following dose reduction techniques: Automated exposure control, adjustment of the mA and/or kV according to patient size, and/or use of iterative reconstruction technique. FINDINGS: LOWER THORAX: Unremarkable. LIVER: Unremarkable. No gross lesion or ductal dilatation. GALLBLADDER AND BILE DUCTS: Unremarkable. PANCREAS: Unremarkable. No gross lesion or ductal dilatation. SPLEEN: Unremarkable. ADRENALS: Unremarkable. No mass. KIDNEYS AND URETERS: Unremarkable. No hydronephrosis. No solid mass. VASCULATURE: Unremarkable. No aortic aneurysm. BOWEL: Continued thickening of the wall of the colon and small bowel consistent with enterocolitis. The most severe findings can be found in the proximal small bowel and cecum -ascending colon. APPENDIX: Normal appendix. PERITONEUM: Unremarkable. No free fluid. No free air. LYMPH NODES: Unremarkable. No enlarged lymph nodes. BLADDER: Unremarkable. REPRODUCTIVE: Unremarkable. BONES: No acute fracture. OTHER FINDINGS: None. IMPRESSION: Persistent enterocolitis. Similar degree in distribution of findings identified on the prior study 10/07/2017.
[2017-11-15] MEDS ORDERED: metroNIDAZOLE 500mg/100ml NS 100 ML IV STA (13:54)
[2017-11-15] MEDS ORDERED: Ciprofloxacin 400mg/200ml D5W 400 MG/200 ML BAG IV STA (13:54)
[2017-11-15] MEDS ORDERED: Ciprofloxacin 400mg/200ml D5W 400 MG/200 ML BAG IVPB ONE (14:51)
[2017-11-15] MEDS ORDERED: metroNIDAZOLE 500mg/100ml NS 100 ML IVPB ONE (14:52)
[2017-11-15] MEDS: Lactated Ringer's 1,000 ML IV SCH (17:52)
--- NOTE | 2017-11-15 17:54 | CP.PCM.HP ---
History of Present Illness - History of Present Illness History of Present Illness: 37 y/o female w/ pmh of Crohn's who presented to the ER with abdominal pain, bloody diarrhea, and fever. Her symptoms began last and started with fevers up to 103 degrees, which were alleviated w/ acetaminophen. Bloody diarrhea began on Tuesday, and she experienced nausea and vomiting yesterday. She states that she was diagnosed with Crohn's 8 months ago by and has been taking Mesalamine, but that her symptoms have not improved. She also admits to having a rash on her shoulders and chest, persisting for months. She denies hemataemesis, dizziness, SOB. 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 Family hx: no significant family history OBGYN: , LMP September 25, 2017, not sexually active, s/p tubal ligation, OBGYN test negative 1 month ago Home Meds: Mesalazine 500mg QD Allergies: Penicillin Next of Kin: Code status: full code ED Course: VS: Temp 100.8, HR 105, BP 112/68 Labs: CMP/CBC, mg, Phos, Udip, PT, PTT, blood cx, urine cx, UA, WBC 56 Hgb 8.9 platelet count 415 PT 12.2 INR 1.1, Imaging: Abdominal/Pelvis CT showed continuous thickening of the colonic wall and small bowel consistent w/ enterocolitis most severe in the proximal small bowl and cecum-ascending colon Meds: Acetaminophen, IV ciprofloxacin 400 mg, toradol 15 mg, 1L LR, Mesalamine 600 mg PO, IV metronidazole 500mg, zofran, protonix, 1L NaCL Present on Admission - Present on Admission Any Indicators Present on Admission: No History of DVT/PE: No History of Uncontrolled Diabetes: No Urinary Catheter: No Decubitus Ulcer Present: No Review of Systems - Constitutional Constitutional: Anorexia, Chills, Fatigue, Fever - EENT Eyes: absent: Change in Vision Ears: absent: Dizziness Nose/Mouth/Throat: absent: Bleeding Gums, Dry Mouth, Dysphagia, Sore Throat - Cardiovascular Cardiovascular: absent: Chest Pain, Dyspnea, Edema, Lightheadedness, Pedal Edema - Respiratory Respiratory: absent: Cough, Dyspnea, Hemoptysis, Wheezing, Chest Congestion - Gastrointestinal Gastrointestinal: Abdominal Pain, Bloating, Change in Bowel Habits, Diarrhea, Hematochezia, Nausea, Vomiting. absent: Hematemesis - Genitourinary Genitourinary: absent: Change in Urinary Stream, Difficulty Urinating, Hematuria - Reproductive: Female Reproductive:Female: Amenorrhea, Menses 1-7 Days, Normal Menses - Musculoskeletal Musculoskeletal: absent: Arthralgias, Back Pain - Integumentary Integumentary: Alopecia (thinning of hair), Rash (small red scaley patches right upper lip, right neck, right shoulder, left lateral chest). absent: Dry Skin, Pruritus, Unusual Bruising - Neurological Neurological: absent: Confusion, Dizziness, Headaches - Psychiatric Psychiatric: absent: Depression - Endocrine Endocrine: absent: Excessive Sweating, Polydipsia, Polyphagia - Hematologic/Lymphatic Hematologic: absent: Easy Bruising Past Patient History - Past Medical History & Family History Past Medical History?: No - Past Social History Smoking Status: Never Smoked Alcohol: None Drugs: Denies Home Situation {Lives}: With Family - GASTROINTESTINAL Hx Crohn's Disease: Yes Hx Gastritis: Yes - PSYCHIATRIC Hx Substance Use: No - SURGICAL HISTORY Hx Surgeries: Yes Hx Section: Yes - ANESTHESIA Hx Anesthesia: Yes Hx Anesthesia Reactions: No Hx Malignant Hyperthermia: No Meds Allergies/Adverse Reactions: Allergies Allergy/AdvReac Type Severity Reaction Status Date / Time Penicillins Allergy Severe RASH Verified 09/30/17 04:33 nut - unspecified Allergy RASH Verified 09/30/17 04:33 Physical Exam - Additional Findings Additional findings: non-pruritic small red scaley patches on right upper lip, right neck, right shoulder, left lateral chest Results - Vital Signs Recent Vital Signs: Last Vital Signs Temp 98.1 F 11/15/17 17:31 Pulse 76 11/15/17 17:31 Resp 18 11/15/17 17:31 BP 108/76 11/15/17 17:31 Pulse Ox 100 11/15/17 17:31 - Labs Result Diagrams: 11/15/17 09:30 11/15/17 09:30 Labs: Laboratory Results - last 24 hr 11/15/17 11/15/17 11/15/17 09:30 09:30 09:30 WBC 5.6 RBC 4.26 Hgb 8.9 L D Hct 28.1 L MCV 66.0 L D MCH 20.8 L MCHC 31.6 L RDW 19.0 H Plt Count 415 H D MPV 6.8 L Neut % (Auto) 80.9 H Lymph % (Auto) 8.4 L Dale % (Auto) 7.3 Eos % (Auto) 3.1 Baso % (Auto) 0.3 Neut # (Auto) 4.5 Lymph # (Auto) 0.5 L Dale # (Auto) 0.4 Eos # (Auto) 0.2 Baso # (Auto) 0.0 Neutrophils % (Manual) 79 H Band Neutrophils % 4 H Lymphocytes % (Manual) 9 L Monocytes % (Manual) 6 Eosinophils % (Manual) 2 Platelet Estimate Slightly increased H Hypochromasia (manual) Moderate Anisocytosis (manual) Slight Microcytosis (manual) Moderate Target Cells Slight Ovalocytes Slight Schistocytes Slight PT 12.2 INR 1.1 APTT 31.3 pO2 VBG pH VBG pCO2 VBG HCO3 VBG Total CO2 VBG O2 Sat (Calc) VBG Base Excess VBG Potassium Glucose Lactate FiO2 Sodium 134 Potassium 3.7 Chloride 99 Carbon Dioxide 27 Anion Gap 12 BUN 8 Creatinine 0.6 L Est GFR ( Amer) > 60 Est GFR (Non-Af Amer) > 60 Random Glucose 99 Calcium 8.1 L Phosphorus 3.2 Magnesium 1.9 Total Bilirubin 0.4 AST 48 H ALT 49 Alkaline Phosphatase 430 H Total Protein 6.0 L Albumin 2.8 L Globulin 3.2 Albumin/Globulin Ratio 0.9 L Venous Blood Potassium Urine Color Urine Clarity Urine pH Ur Specific [place] Urine Protein Urine Glucose (UA) Urine Ketones Urine Blood Urine Nitrate Urine Bilirubin Urine Urobilinogen Ur Leukocyte Esterase Urine RBC (Auto) Urine Microscopic WBC Ur Squamous Epith Cells Urine Bacteria 11/15/17 11/15/17 09:30 10:00 WBC RBC Hgb Hct MCV MCH MCHC RDW Plt Count MPV Neut % (Auto) Lymph % (Auto) Dale % (Auto) Eos % (Auto) Baso % (Auto) Neut # (Auto) Lymph # (Auto) Dale # (Auto) Eos # (Auto) Baso # (Auto) Neutrophils % (Manual) Band Neutrophils % Lymphocytes % (Manual) Monocytes % (Manual) Eosinophils % (Manual) Platelet Estimate Hypochromasia (manual) Anisocytosis (manual) Microcytosis (manual) Target Cells Ovalocytes Schistocytes PT INR APTT pO2 26 L VBG pH 7.42 VBG pCO2 46 VBG HCO3 27.1 VBG Total CO2 31.2 H VBG O2 Sat (Calc) 52.6 VBG Base Excess 4.5 H VBG Potassium 3.6 Glucose 102 Lactate 1.3 FiO2 21.0 Sodium 133.0 Potassium Chloride 101.0 Carbon Dioxide Anion Gap BUN Creatinine Est GFR ( Amer) Est GFR (Non-Af Amer) Random Glucose Calcium Phosphorus Magnesium Total Bilirubin AST ALT Alkaline Phosphatase Total Protein Albumin Globulin Albumin/Globulin Ratio Venous Blood Potassium 3.6 Urine Color Yellow Urine Clarity Cloudy Urine pH 6.0 Ur Specific [place] 1.014 Urine Protein Negative Urine Glucose (UA) Neg Urine Ketones Negative Urine Blood Negative Urine Nitrate Negative Urine Bilirubin Negative Urine Urobilinogen 0.2-1.0 Ur Leukocyte Esterase Neg Urine RBC (Auto) 1 Urine Microscopic WBC 8 H Ur Squamous Epith Cells 8 H Urine Bacteria Rare Assessment & Plan - Assessment and Plan (Free Text) Assessment: 37 y/o female w/ pmh of Crohn's c/o crampy abdominal pain, bloody diarrhea, fever, nausea, and vomiting. Plan: 1)Sepsis -Admit to tele -most likely 2/2 entercolotis -febrile, tachycardic -CT shows enterocolitis -no leukocytosis -normal lactate levels in ED (1.3) -Acetaminophen 650 mg PO for fevers -started on Cipro 400mg IV, Metronidazole 500mg IV -C/w Mesalamine 800mg PO Q8 -blood and urine cultures ordered 2) Enterocolitis -Infectious vs. inflammatory -stool culture ordered -c.diff toxin ordered -Toradol 15mg IVP for pain mgmt -Will consult GI 3) Crohn's disease -recurrent bloody diarrhea -C/w Mesalamine 800mg PO Q8 4)Microcytic Anemia -likely 2/2 bloody diarrhea -will follow cbc -Hgb 8.9 MCV 66 today -PT, INR, aPTT wnl 4)Rash -seen by outpatient kitchenhand -will monitor 5) Amenorrhea -b-HCG test pending -LMP September 25, 2017 -s/p tubal ligation -being assessed by OBGYN outpatient 6)Diet -NPO 7) DVT Prophylaxis -SCDs - Date & Time Date: 11/15/17 Time: 18:20
[2017-11-15] MEDS: metroNIDAZOLE 500mg/100ml NS 100 ML IVPB SCH (21:18)
[2017-11-15] MEDS: Ciprofloxacin 400mg/200ml D5W 400 MG/200 ML BAG IVPB SCH (21:18)
[2017-11-16] MEDS: metroNIDAZOLE 500mg/100ml NS 100 ML IVPB SCH ×2 (00:23→17:54)
[2017-11-16] MEDS: Lactated Ringer's 1,000 ML IV SCH ×3 (04:34→17:54)
[2017-11-16 06:17] LABS: HEMOGLOBIN 7.7 g/dL (12.0-16.0); MEAN CELL VOLUME 65.9 fl (81.0-99.0); MEAN CORPUSCULAR HEMOGLOBIN 21.1 pg (27.0-31.0); RBC 3.64 Mil/uL (3.80-5.20); RED CELL DISTRIBUTION WIDTH 18.6 % (11.5-14.5); WHITE BLOOD COUNT 3.4 K/uL (4.8-10.8)
[2017-11-16 06:39] LABS: ALB/GLOB RATIO 0.8 (1.0-2.1); ALBUMIN 2.3 g/dL (3.5-5.0); ALT/SGPT 42 U/L (9-52); AST/SGOT 33 U/L (14-36); BLOOD UREA NITROGEN 5 mg/dl (7-17); CALCIUM 7.9 mg/dL (8.4-10.2); GFR AFRICAN-AMERICAN > 60; GFR NON-AFRICAN AMERICAN > 60
[2017-11-16] MEDS: Pantoprazole 40 mg EC Tab PO SCH (09:40)
[2017-11-16] MEDS: Ciprofloxacin 400mg/200ml D5W 400 MG/200 ML BAG IVPB SCH (09:45)
--- NOTE | 2017-11-16 12:03 | CP.PCM.PN ---
Subjective - Date & Time of Evaluation Date of Evaluation: 11/16/17 Time of Evaluation: 11:59 - Subjective Subjective: 37 y/o female w/ pmh of Crohn's admitted for sepsis 2/2 enterocolitis Patient seen and examined at bedside. Abdominal pain improving. Fever resolved. Continues to have diarrhea, but now non-bloody. Denies nausea/vomiting. Objective - Vital Signs/Intake and Output Vital Signs (last 24 hours): Temp Pulse Resp BP Pulse Ox 98.5 F 70 18 91/49 L 97 11/16/17 08:00 11/16/17 08:00 11/16/17 08:00 11/16/17 08:00 11/16/17 08:00 Intake and Output: 11/16/17 11/16/17 06:59 18:59 Intake Total 1600 Balance 1600 - Medications Medications: Current Medications Acetaminophen (Tylenol 325mg Tab) 650 mg PO Q6 PRN PRN Reason: Pain, Mild (1-3) Acetaminophen (Tylenol 325mg Tab) 650 mg PO Q6 PRN PRN Reason: Fever >100.4 F Lactated Ringer's (Lactated Ringer's) 1,000 mls @ 125 mls/hr IV .Q8H [facility] Last Admin: 11/16/17 09:43 Dose: 125 mls/hr Ketorolac Tromethamine (Toradol) 15 mg IVP Q6 PRN PRN Reason: Pain, moderate (4-7) Mesalamine (Delzicol Dr) 1,200 mg PO QID [facility] Last Admin: 11/16/17 09:42 Dose: 1,200 mg Ondansetron HCl (Zofran Inj) 4 mg IVP Q6 PRN PRN Reason: Nausea/Vomiting Pantoprazole Sodium (Protonix Ec Tab) 40 mg PO DAILY [facility] Last Admin: 11/16/17 09:40 Dose: 40 mg - Labs Labs: 11/16/17 04:20 11/16/17 04:20 PT 12.2 Seconds (9.8-13.1) 11/15/17 09:30 INR 1.1 (0.9-1.2) 11/15/17 09:30 APTT 31.3 Seconds (25.6-37.1) 11/15/17 09:30 - Constitutional Appears: Well, No Acute Distress - ENT Exam ENT Exam: Mucous Membranes Moist - Respiratory Exam Respiratory Exam: Clear to Ausculation Bilateral, NORMAL BREATHING PATTERN - Cardiovascular Exam Cardiovascular Exam: REGULAR RHYTHM, RRR, +S1, +S2 - GI/Abdominal Exam GI & Abdominal Exam: Soft, Tenderness, Normal Bowel Sounds. absent: Distended - Extremities Exam Extremities Exam: absent: Pedal Edema - Neurological Exam Neurological Exam: Alert, Awake, Oriented x3 - Skin Skin Exam: Dry, Intact, Warm Assessment and Plan - Assessment and Plan (Free Text) Assessment: Assessment: 37 y/o female w/ pmh of Crohn's admitted for enterocolitis spesis Plan: 1)Sepsis -most likely 2/2 entercolitis -afebrile now, tachycardia resolved -CT shows enterocolitis -no leukocytosis -normal lactate levels in ED (1.3) -Acetaminophen 650 mg PO for fevers -started on Cipro 400mg IV, Metronidazole 500mg IV -C/w Mesalamine 800mg PO Q8 -stool, blood and urine cultures pending 2) Enterocolitis -Infectious vs. inflammatory -stool culture pending -c.diff toxin negative -Toradol 15mg IVP for pain mgmt -Will consult GI 3) Crohn's disease -recurrent bloody diarrhea -C/w Mesalamine 800mg PO Q8 4)Microcytic Anemia -likely 2/2 bloody diarrhea -will follow cbc -Hgb 7.7 -PT, INR, aPTT wnl 4)Rash -seen and managed by outpatient repair service clerk -will monitor -JESSY negative 5) Amenorrhea -LMP September 25, 2017 -s/p tubal ligation -being assessed by OBGYN outpatient 6)Diet -NPO 7) DVT Prophylaxis -SCDs
[2017-11-16] MEDS ORDERED: Lactated Ringer's 1,000 ML IV SCH (14:39)
[2017-11-16] MEDS ORDERED: Potassium Chloride 20 mEq/15 ml LIQ UD PO ONE (14:43)
--- NOTE | 2017-11-16 16:50 | CP.PCM.CON ---
<Mariluz Browning - Last Filed: 11/16/17 16:42> History of Present Illness - History of Present Illness History of Present Illness: PGY 5 GI Initial Consult Kelsea Renee is a 37F w/ hx of crohn's diagnoised 07/2017 who presents to the ED with complaints of lower abd pain B/L. Pt states that her pain has been constant for the past 2 months. She nites interval improvement in her symptoms after diagnosis and starting mesalamine. She notes that her frequency of diarrhea also improved and her stool was for formed. Unfortunetly, she still continued to have abd pain, diarrhea, and weightloss. She informed us that she was not taking her mesalamine correctly. She was only taking 500mg daily. She presented to the [facility] last week and informed them of her continues symptoms. She was advised to increase her dose to 500mg BID. She notes some episodes of fever 4 days prior He symptoms are exacerbated with food. 20lb weightloss as per pt in the last few months. PMHx: Crohns, hep C s/p treatment of PO meds and injections in [facility] (3 years prior), unknown if SVR PSHx" none Social hx: +social etoh, denies smoking, or illicit drugs Family hx: Denies any GI related malignancy ROS: 12 point ROS conducted, neg other than above Past Patient History - Past Medical History & Family History Past Medical History?: Yes - Past Social History Smoking Status: Never Smoked - CARDIAC Hx Cardiac Disorders: No - PULMONARY Hx Respiratory Disorders: No - NEUROLOGICAL Hx Neurological Disorder: Yes Other/Comment: frequent headaches - HEENT Hx HEENT Problems: No - RENAL Hx Chronic Kidney Disease: No - ENDOCRINE/METABOLIC Hx Endocrine Disorders: No - HEMATOLOGICAL/ONCOLOGICAL Hx Blood Disorders: Yes Hx AIDS: No Hx Hepatitis C: Yes (diagnosed 3 years ago) Hx Human Immunodeficiency Virus (HIV): No - INTEGUMENTARY Hx Dermatological Problems: Yes Hx Psoriasis: Yes - MUSCULOSKELETAL/RHEUMATOLOGICAL Hx Musculoskeletal Disorders: Yes Hx Back Pain: Yes Hx Falls: No - GASTROINTESTINAL Hx Gastrointestinal Disorders: Yes Hx Crohn's Disease: Yes Hx Diarrhea: Yes Hx Gastritis: Yes - GENITOURINARY/GYNECOLOGICAL Hx Genitourinary Disorders: Yes Other/Comment: periods stopped - PSYCHIATRIC Hx Psychophysiologic Disorder: No Hx Substance Use: No - SURGICAL HISTORY Hx Surgeries: Yes Hx Section: Yes - ANESTHESIA Hx Anesthesia: Yes Hx Anesthesia Reactions: No Hx Malignant Hyperthermia: No Meds Allergies/Adverse Reactions: Allergies Allergy/AdvReac Type Severity Reaction Status Date / Time Penicillins Allergy Severe RASH Verified 09/30/17 04:33 carrot Allergy SWELLING Verified 11/16/17 19:38 nut - unspecified Allergy RASH Verified 09/30/17 04:33 soy Allergy SWELLING Verified 11/16/17 19:39 carrot Allergy SHORTNESS Uncoded 11/16/17 19:38 OF BREATH - Medications Medications: Current Medications Acetaminophen (Tylenol 325mg Tab) 650 mg PO Q6 PRN PRN Reason: Pain, Mild (1-3) Ketorolac Tromethamine (Toradol) 15 mg IVP Q6 PRN PRN Reason: Pain, moderate (4-7) Mesalamine (Delzicol Dr) 1,200 mg PO QID [facility] Last Admin: 11/16/17 13:44 Dose: 1,200 mg Morphine Sulfate (Morphine) 1 mg IVP Q6 PRN PRN Reason: Pain, severe (8-10) Last Admin: 11/16/17 15:36 Dose: 1 mg Ondansetron HCl (Zofran Inj) 4 mg IVP Q6 PRN PRN Reason: Nausea/Vomiting Pantoprazole Sodium (Protonix Ec Tab) 40 mg PO DAILY [facility] Last Admin: 11/16/17 09:40 Dose: 40 mg Physical Exam - Constitutional Appears: Well, No Acute Distress - Head Exam Head Exam: ATRAUMATIC, NORMOCEPHALIC - Eye Exam Eye Exam: Normal appearance - ENT Exam ENT Exam: Mucous Membranes Moist, Normal Exam - Respiratory Exam Respiratory Exam: Clear to Auscultation Bilateral, NORMAL BREATHING PATTERN. absent: Prolonged Expiratory Phase, Rhonchi, Wheezes, Respiratory Distress - Cardiovascular Exam Cardiovascular Exam: REGULAR RHYTHM, +S1, +S2 - GI/Abdominal Exam GI & Abdominal Exam: Normal Bowel Sounds, Soft, Tenderness (lower abd). absent : Distended, Firm, Guarding, Organomegaly, Rebound, Rigid - Extremities Exam Extremities exam: Negative for: joint swelling, pedal edema - Back Exam Back exam: NORMAL INSPECTION - Neurological Exam Neurological exam: Alert, Oriented x3 - Psychiatric Exam Psychiatric exam: Normal Affect, Normal Mood - Skin Skin Exam: Dry, Intact, Normal Color, Warm Results - Vital Signs Recent Vital Signs: Last Vital Signs Temp 98.5 F 11/16/17 12:00 Pulse 82 11/16/17 12:00 Resp 18 11/16/17 12:00 BP 95/61 L 11/16/17 12:00 Pulse Ox 100 11/16/17 12:00 - Labs Result Diagrams: 11/16/17 04:20 11/16/17 04:20 Labs: Laboratory Results - last 24 hr 11/16/17 11/16/17 11/16/17 04:20 04:20 07:00 WBC 3.4 L RBC 3.64 L Hgb 7.7 L Hct 24.0 L MCV 65.9 L MCH 21.1 L MCHC 32.0 L RDW 18.6 H Plt Count 374 Sodium 136 Potassium 3.5 L Chloride 103 Carbon Dioxide 26 Anion Gap 11 BUN 5 L Creatinine 0.8 Est GFR ( Amer) > 60 Est GFR (Non-Af Amer) > 60 Random Glucose 85 Calcium 7.9 L Total Bilirubin 0.4 AST 33 ALT 42 Alkaline Phosphatase 320 H D Total Protein 5.1 L Albumin 2.3 L Globulin 2.8 Albumin/Globulin Ratio 0.8 L C. difficile Ag & Toxin Positive antigen Assessment & Plan - Assessment and Plan (Free Text) Assessment: Kelsea Renee is a 37F w/ hx of Crohn's who presents with abd pain, diarrhea, ad weightloss Crohn's flare Weightloss 2/2 above Diarrhea 2/2 above + HCV antibody s/p tx, unknown response Plan: -still have not achieved induction since diagnosis -recommend correct dose of mesalamine 1.2g QID for 2 month and reassess -will need follow-up in Dec -waiting on HCV viral load, if neg, will consider starting prednisione -c.diff antigen + (carrier of non-pathologic strain), do not recommend abx at time -fecal calprotectin pending -recommend iron supplement -will send for Vit b12, D levels -will need close follow-up as oupt -recommend follow-up at next GI clinic in Dec D/W Dr. Cason <Keith Cason - Last Filed: 11/16/17 20:54> Meds - Medications Medications: Current Medications Acetaminophen (Tylenol 325mg Tab) 650 mg PO Q6 PRN PRN Reason: Pain, Mild (1-3) Ketorolac Tromethamine (Toradol) 15 mg IVP Q6 PRN PRN Reason: Pain, moderate (4-7) Last Admin: 11/16/17 18:56 Dose: 15 mg Mesalamine (Delzicol Dr) 1,200 mg PO QID [facility] Last Admin: 11/16/17 17:50 Dose: 1,200 mg Morphine Sulfate (Morphine) 1 mg IVP Q6 PRN PRN Reason: Pain, severe (8-10) Last Admin: 11/16/17 15:36 Dose: 1 mg Ondansetron HCl (Zofran Inj) 4 mg IVP Q6 PRN PRN Reason: Nausea/Vomiting Pantoprazole Sodium (Protonix Ec Tab) 40 mg PO DAILY [facility] Last Admin: 11/16/17 09:40 Dose: 40 mg Results - Vital Signs Recent Vital Signs: Last Vital Signs Temp 98.5 F 11/16/17 12:00 Pulse 82 11/16/17 12:00 Resp 18 11/16/17 12:00 BP 95/61 L 11/16/17 12:00 Pulse Ox 100 11/16/17 12:00 - Labs Result Diagrams: 11/16/17 04:20 11/16/17 04:20 Labs: Laboratory Results - last 24 hr 11/16/17 11/16/17 11/16/17 04:20 04:20 07:00 WBC 3.4 L RBC 3.64 L Hgb 7.7 L Hct 24.0 L MCV 65.9 L MCH 21.1 L MCHC 32.0 L RDW 18.6 H Plt Count 374 Sodium 136 Potassium 3.5 L Chloride 103 Carbon Dioxide 26 Anion Gap 11 BUN 5 L Creatinine 0.8 Est GFR ( Amer) > 60 Est GFR (Non-Af Amer) > 60 Random Glucose 85 Calcium 7.9 L Total Bilirubin 0.4 AST 33 ALT 42 Alkaline Phosphatase 320 H D Total Protein 5.1 L Albumin 2.3 L Globulin 2.8 Albumin/Globulin Ratio 0.8 L C. difficile Ag & Toxin Positive antigen Attending/Attestation - Attestation I have personally seen and examined this patient.: Yes I have fully participated in the care of the patient.: Yes I have reviewed all pertinent clinical information: Yes Notes (Text): 11/16/17 20:53 This is a 37 yr old F w/ hx of Crohn's who presents with abd pain, diarrhea, ad weight loss due to non compliance of medications. HCv ab positive. recommend correct dosing of mesalamine and vitamin and probiotics. To follow in GI clinic
[2017-11-17 06:22] LABS: BASO % 0.4 % (0.0-2.0); EOS # 0.1 K/uL (0.0-0.7); EOS % 2.5 % (0.0-4.0); HEMOGLOBIN 8.3 g/dL (12.0-16.0); LYMPH # 0.6 K/uL (1.0-4.3); LYMPH % 14.3 % (20.0-40.0); MEAN CELL VOLUME 65.3 fl (81.0-99.0); MEAN CORPUSCULAR HEMOGLOBIN 21.2 pg (27.0-31.0); MEAN CORPUSCULAR HGB CONC 32.4 g/dL (33.0-37.0); MEAN PLATELET VOLUME 7.1 fl (7.2-11.7); MONO # 0.5 K/uL (0.0-0.8); MONO % 10.3 % (0.0-10.0); NEUT # 3.3 K/uL (1.8-7.0); NEUT % 72.5 % (50.0-75.0); NRBC % 0.1 % (0.0-0.0); RBC 3.92 Mil/uL (3.80-5.20); RED CELL DISTRIBUTION WIDTH 18.6 % (11.5-14.5); WHITE BLOOD COUNT 4.5 K/uL (4.8-10.8)
[2017-11-17 06:48] LABS: BLOOD UREA NITROGEN 7 mg/dl (7-17); GFR AFRICAN-AMERICAN > 60; GFR NON-AFRICAN AMERICAN > 60
[2017-11-17 08:00] LABS: ALB/GLOB RATIO 0.8 (1.0-2.1); ALBUMIN 2.5 g/dL (3.5-5.0); BILIRUBIN,DIRECT 0.2 mg/ml (0.0-0.4)
[2017-11-17] MEDS: Pantoprazole 40 mg EC Tab PO SCH (08:18)
--- NOTE | 2017-11-17 08:34 | CP.PCM.PN ---
<Mariluz Browning - Last Filed: 11/17/17 10:36> Subjective - Date & Time of Evaluation Date of Evaluation: 11/17/17 Time of Evaluation: 07:15 - Subjective Subjective: PGY5 GI Follow-up Pt seen and examined bedside +fever overnight, chills and diaphoresis Abd pain improved, still has x4 BM daily liquid, w/o blood Ros: 12 point ROS conducted, neg other than above Objective - Vital Signs/Intake and Output Vital Signs (last 24 hours): Temp Pulse Resp BP Pulse Ox 98.7 F 83 18 88/55 L 99 11/17/17 08:24 11/17/17 08:24 11/17/17 08:24 11/17/17 08:24 11/17/17 08:24 Intake and Output: 11/17/17 11/17/17 06:59 18:59 Intake Total 1375 Balance 1375 - Medications Medications: Current Medications Acetaminophen (Tylenol 325mg Tab) 650 mg PO Q6 PRN PRN Reason: Pain, Mild (1-3) Ciprofloxacin (Cipro 400mg/200ml Dsw) 400 mg in 200 mls @ 200 mls/hr IVPB Q12 ASHLEY PRN Reason: Protocol Metronidazole (Flagyl 500mg/100ml Ns) 100 mls @ 100 mls/hr IVPB Q8 ASHLEY PRN Reason: Protocol Vancomycin HCl 1,000 mg/ (Sodium Chloride) 250 mls @ 250 mls/hr IVPB Q12H ASHLEY PRN Reason: Protocol Ketorolac Tromethamine (Toradol) 15 mg IVP Q6 PRN PRN Reason: Pain, moderate (4-7) Last Admin: 11/16/17 18:56 Dose: 15 mg Mesalamine (Delzicol Dr) 1,200 mg PO QID [facility] Last Admin: 11/17/17 08:18 Dose: 1,200 mg Morphine Sulfate (Morphine) 1 mg IVP Q6 PRN PRN Reason: Pain, severe (8-10) Last Admin: 11/16/17 15:36 Dose: 1 mg Ondansetron HCl (Zofran Inj) 4 mg IVP Q6 PRN PRN Reason: Nausea/Vomiting Pantoprazole Sodium (Protonix Ec Tab) 40 mg PO DAILY [facility] Last Admin: 11/17/17 08:18 Dose: 40 mg - Labs Labs: 11/17/17 05:40 11/17/17 05:40 PT 12.2 Seconds (9.8-13.1) 11/15/17 09:30 INR 1.1 (0.9-1.2) 11/15/17 09:30 APTT 31.3 Seconds (25.6-37.1) 11/15/17 09:30 - Constitutional Appears: Well, No Acute Distress - Head Exam Head Exam: ATRAUMATIC, NORMOCEPHALIC - Eye Exam Eye Exam: Normal appearance - ENT Exam ENT Exam: Mucous Membranes Moist, Normal Exam - Neck Exam Neck Exam: Normal Inspection - Respiratory Exam Respiratory Exam: Clear to Ausculation Bilateral, NORMAL BREATHING PATTERN. absent: Rales, Rhonchi, Wheezes, Respiratory Distress - Cardiovascular Exam Cardiovascular Exam: REGULAR RHYTHM, +S1, +S2 - GI/Abdominal Exam GI & Abdominal Exam: Soft, Tenderness, Normal Bowel Sounds. absent: Distended, Firm, Guarding, Rigid, Mass, Organomegaly Additional comments: lower B/L, normoactive BS, w/ occasional high pitch - Extremities Exam Extremities Exam: absent: Joint Swelling, Pedal Edema - Neurological Exam Neurological Exam: Alert, Awake, Oriented x3 - Psychiatric Exam Psychiatric exam: Normal Affect, Normal Mood - Skin Skin Exam: Dry, Intact, Normal Color, Warm Assessment and Plan - Assessment and Plan (Free Text) Assessment: Kelsea Renee is a 37F w/ hx of Crohn's who presents with abd pain, diarrhea, ad weightloss Crohn's flare Weightloss 2/2 above Diarrhea 2/2 above + HCV antibody s/p tx, unknown response Grm + bactermia febrile Plan: -still have not achieved induction since diagnosis -recommend correct dose of mesalamine 1.2g QID for 2 month and reassess -will need follow-up in Dec -waiting on HCV viral load, if neg, will consider starting prednisione -c.diff antigen + (carrier of non-pathologic strain), -fecal calprotectin pending -recommend iron supplement -will send for Vit b12, D levels -will need close follow-up as oupt -recommend follow-up at next GI clinic in Dec -pt afebrile overnight w/ fever, chills and diaphoresis -started on vacomycin, for bacteremia, agree with reculture of blood -restarted cipro and flagyl -recommend ID consult D/W Dr. Cason <KamlaKeith - Last Filed: 11/17/17 12:31> Objective - Vital Signs/Intake and Output Vital Signs (last 24 hours): Temp Pulse Resp BP Pulse Ox 100 F H 83 18 88/55 L 99 11/17/17 12:11 11/17/17 08:24 11/17/17 08:24 11/17/17 08:24 11/17/17 08:24 Intake and Output: 11/17/17 11/17/17 06:59 18:59 Intake Total 1375 Balance 1375 - Medications Medications: Current Medications Acetaminophen (Tylenol 325mg Tab) 650 mg PO Q6 PRN PRN Reason: Pain, Mild (1-3) Acetaminophen (Tylenol 325mg Tab) 650 mg PO Q4 PRN PRN Reason: Fever >100.4 F Last Admin: 11/17/17 12:11 Dose: 650 mg Ciprofloxacin (Cipro 400mg/200ml Dsw) 400 mg in 200 mls @ 200 mls/hr IVPB Q12 ASHLEY PRN Reason: Protocol Last Admin: 11/17/17 10:47 Dose: 200 mls/hr Metronidazole (Flagyl 500mg/100ml Ns) 100 mls @ 100 mls/hr IVPB Q8 ASHLEY PRN Reason: Protocol Last Admin: 11/17/17 10:46 Dose: 100 mls/hr Vancomycin HCl 1 gm/ Sodium (Chloride) 250 mls @ 250 mls/hr IVPB Q12H ASHLEY PRN Reason: Protocol Ketorolac Tromethamine (Toradol) 15 mg IVP Q6 PRN PRN Reason: Pain, moderate (4-7) Last Admin: 11/16/17 18:56 Dose: 15 mg Mesalamine (Delzicol Dr) 1,200 mg PO QID [facility] Last Admin: 11/17/17 12:16 Dose: 1,200 mg Morphine Sulfate (Morphine) 1 mg IVP Q6 PRN PRN Reason: Pain, severe (8-10) Last Admin: 11/16/17 15:36 Dose: 1 mg Ondansetron HCl (Zofran Inj) 4 mg IVP Q6 PRN PRN Reason: Nausea/Vomiting Pantoprazole Sodium (Protonix Ec Tab) 40 mg PO DAILY [facility] Last Admin: 11/17/17 08:18 Dose: 40 mg - Labs Labs: 11/17/17 05:40 11/17/17 05:40 PT 12.2 Seconds (9.8-13.1) 11/15/17 09:30 INR 1.1 (0.9-1.2) 11/15/17 09:30 APTT 31.3 Seconds (25.6-37.1) 11/15/17 09:30 Attending/Attestation - Attestation I have personally seen and examined this patient.: Yes I have fully participated in the care of the patient.: Yes I have reviewed all pertinent clinical information, including history, physical exam and plan: Yes Notes (Text): 11/17/17 12:30 This is a 37 yr old F w/ hx of Crohn's who presents with abd pain, diarrhea, and weight loss due to non compliance of medications. HCv ab positive. HCv viral load pending. Recommend correct dosing of mesalamine and vitamin and probiotics. Growing GPC+ on blood cultures. Will start antibiotics and get ID consult. Consider one unit PRBC for fatigue. Diet as tolerated
[2017-11-17 08:36] LABS: FERRITIN 19.7 ng/Ml (6.24-137.0)
[2017-11-17 10:31] LABS: IRON 11 ug/dL (37-170)
[2017-11-17] MEDS: metroNIDAZOLE 500mg/100ml NS 100 ML IVPB SCH ×2 (10:46→16:08)
[2017-11-17] MEDS: Ciprofloxacin 400mg/200ml D5W 400 MG/200 ML BAG IVPB SCH ×2 (10:47→21:31)
[2017-11-17 10:48] LABS: % IRON SATURATION 3 % (20-55); TOTAL IRON BINDING CAPACITY 323 ug/dL (250-450)
--- NOTE | 2017-11-17 12:07 | CP.PCM.PN ---
Subjective - Date & Time of Evaluation Date of Evaluation: 11/17/17 Time of Evaluation: 12:05 - Subjective Subjective: Patient seen and examined at bedside. She is diaphoretic, w/ chills and c/o fatigue, abdominal pain and non-bloody diarrhea x1. Denies dizziness, n/v. Objective - Vital Signs/Intake and Output Vital Signs (last 24 hours): Temp Pulse Resp BP Pulse Ox 98.7 F 83 18 88/55 L 99 11/17/17 08:24 11/17/17 08:24 11/17/17 08:24 11/17/17 08:24 11/17/17 08:24 Intake and Output: 11/17/17 11/17/17 06:59 18:59 Intake Total 1375 Balance 1375 - Medications Medications: Current Medications Acetaminophen (Tylenol 325mg Tab) 650 mg PO Q6 PRN PRN Reason: Pain, Mild (1-3) Acetaminophen (Tylenol 325mg Tab) 650 mg PO Q4 PRN PRN Reason: Fever >100.4 F Ciprofloxacin (Cipro 400mg/200ml Dsw) 400 mg in 200 mls @ 200 mls/hr IVPB Q12 ASHLEY PRN Reason: Protocol Last Admin: 11/17/17 10:47 Dose: 200 mls/hr Metronidazole (Flagyl 500mg/100ml Ns) 100 mls @ 100 mls/hr IVPB Q8 ASHLEY PRN Reason: Protocol Last Admin: 11/17/17 10:46 Dose: 100 mls/hr Vancomycin HCl 1 gm/ Sodium (Chloride) 250 mls @ 250 mls/hr IVPB Q12H ASHLEY PRN Reason: Protocol Ketorolac Tromethamine (Toradol) 15 mg IVP Q6 PRN PRN Reason: Pain, moderate (4-7) Last Admin: 11/16/17 18:56 Dose: 15 mg Mesalamine (Delzicol Dr) 1,200 mg PO QID ASHLEY Last Admin: 11/17/17 08:18 Dose: 1,200 mg Morphine Sulfate (Morphine) 1 mg IVP Q6 PRN PRN Reason: Pain, severe (8-10) Last Admin: 11/16/17 15:36 Dose: 1 mg Ondansetron HCl (Zofran Inj) 4 mg IVP Q6 PRN PRN Reason: Nausea/Vomiting Pantoprazole Sodium (Protonix Ec Tab) 40 mg PO DAILY ASHLEY Last Admin: 11/17/17 08:18 Dose: 40 mg - Labs Labs: 11/17/17 05:40 11/17/17 05:40 PT 12.2 Seconds (9.8-13.1) 11/15/17 09:30 INR 1.1 (0.9-1.2) 11/15/17 09:30 APTT 31.3 Seconds (25.6-37.1) 11/15/17 09:30 - Constitutional Appears: Other (Sicker than yesterday) - Respiratory Exam Respiratory Exam: Clear to Ausculation Bilateral, NORMAL BREATHING PATTERN - Cardiovascular Exam Cardiovascular Exam: REGULAR RHYTHM, RRR, +S1, +S2 - GI/Abdominal Exam GI & Abdominal Exam: Soft, Tenderness, Normal Bowel Sounds. absent: Distended - Extremities Exam Extremities Exam: Normal Inspection. absent: Pedal Edema - Neurological Exam Neurological Exam: Alert, Awake, Oriented x3 - Psychiatric Exam Psychiatric exam: Normal Affect - Skin Skin Exam: Dry, Intact, Warm Assessment and Plan - Assessment and Plan (Free Text) Assessment: 37 y/o female w/ pmh of Crohn's admitted for enterocolitis sepsis, and bactermia c/o abdominal pain, chills, fever, and diarrhea. Plan: 1)Staph Aureus Bactermia w/ Sepsis -possibly likely 2/2 entercolitis -Positive blood cultures X1 for staph aureus -echo ordered -repeat blood culture is pending -Fever 102.8 today -CT shows enterocolitis -no leukocytosis WBC 4.5 -normal lactate levels in ED (1.3) -Acetaminophen 650 mg PO for fevers -started on Cipro 400 , Metronidazole 500, 1gm Vanco -will check vanc trough -stool, blood and urine cultures pending 2) Enterocolitis -Infectious vs. inflammatory -abdominal pain -stool culture pending -c.diff toxin negative -Toradol 15mg IVP for pain mgmt -GI following 3) Crohn's disease -recurrent bloody diarrhea -C/w Mesalamine 1200mg PO QID 4)Microcytic Anemia -consent obtained for 1 unit PRBC transfusion -likely 2/2 bloody diarrhea -will follow cbc -Hgb 7.7 yesterday -PT, INR, aPTT wnl -Iron and TIBC studies pending 4)Rash -seen and managed by outpatient loans consultant -will monitor -JESSY negative 5) Amenorrhea -LMP September 25, 2017 -s/p tubal ligation -being assessed by OBGYN outpatient 6)Diet -NPO 7) DVT Prophylaxis -SCDs
--- NOTE | 2017-11-17 13:40 | CP.PCM.CON ---
History of Present Illness - History of Present Illness History of Present Illness: Infectious Disease Consultation Note- asked to see this chuck at the request of family practice team for fever and positive blood cx. HPI- Chuck is a pleasant 37 year old female originally from [facility] who states she was diagnosed with crohn's disease about a year ago and states prior to that she was healthy adn very active and would go to [facility] 3 times a week. She states she has had multiple hospitalizations here for similar c/o abd. pain and diarrhea and nausea and vomiting. she states she has been seen by GI.,Kamla and whitley diagnosed with crohn's disea ewas Rx mesalamine but she states her symptoms have not improved much because she has not been taking the medication correctly. 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 She also mentions few months ago she was diagnosed with H.Pylori ad she was given the medication but she could not complete the treatment as it was too strong for her. She also mentions that she has started to get some skin lesions on her face and her shoulder and saw stoker installer and was tested for lyme diseas enad she only had 3 pos bands but she was treated with doxycyline for 3 weeks. she states she still has some lesions above her lip. currently she c/o diarrhea at times bloody, nausea and vomiting, abd. pain,. chills, weight loss, denies any dysurea, susan anyc ough or sob, denies anyc hest pain. denies any FORTE. Allergy- PCN (rash) Review of Systems - Review of Systems Review of Systems: ROS- as stated in HPI Past Patient History - Past Medical History & Family History Past Medical History?: Yes - Past Social History Smoking Status: Never Smoked Alcohol: None Drugs: Denies Home Situation {Lives}: With Family - CARDIAC Hx Cardiac Disorders: No - PULMONARY Hx Respiratory Disorders: No - NEUROLOGICAL Hx Neurological Disorder: Yes Other/Comment: frequent headaches - HEENT Hx HEENT Problems: No - RENAL Hx Chronic Kidney Disease: No - ENDOCRINE/METABOLIC Hx Endocrine Disorders: No - HEMATOLOGICAL/ONCOLOGICAL Hx Blood Disorders: Yes Hx AIDS: No Hx Hepatitis C: Yes (diagnosed 3 years ago) Hx Human Immunodeficiency Virus (HIV): No - INTEGUMENTARY Hx Dermatological Problems: Yes Hx Psoriasis: Yes - MUSCULOSKELETAL/RHEUMATOLOGICAL Hx Musculoskeletal Disorders: Yes Hx Back Pain: Yes Hx Falls: No - GASTROINTESTINAL Hx Gastrointestinal Disorders: Yes Hx Crohn's Disease: Yes Hx Diarrhea: Yes Hx Gastritis: Yes - GENITOURINARY/GYNECOLOGICAL Hx Genitourinary Disorders: Yes Other/Comment: periods stopped - PSYCHIATRIC Hx Psychophysiologic Disorder: No Hx Substance Use: No - SURGICAL HISTORY Hx Surgeries: Yes Hx Section: Yes - ANESTHESIA Hx Anesthesia: Yes Hx Anesthesia Reactions: No Hx Malignant Hyperthermia: No Meds Allergies/Adverse Reactions: Allergies Allergy/AdvReac Type Severity Reaction Status Date / Time Penicillins Allergy Severe RASH Verified 09/30/17 04:33 carrot Allergy SWELLING Verified 11/16/17 19:38 nut - unspecified Allergy RASH Verified 09/30/17 04:33 soy Allergy SWELLING Verified 11/16/17 19:39 carrot Allergy SHORTNESS Uncoded 11/16/17 19:38 OF BREATH - Medications Medications: Current Medications Acetaminophen (Tylenol 325mg Tab) 650 mg PO Q6 PRN PRN Reason: Pain, Mild (1-3) Acetaminophen (Tylenol 325mg Tab) 650 mg PO Q4 PRN PRN Reason: Fever >100.4 F Last Admin: 11/17/17 12:11 Dose: 650 mg Ciprofloxacin (Cipro 400mg/200ml Dsw) 400 mg in 200 mls @ 200 mls/hr IVPB Q12 ASHLEY PRN Reason: Protocol Last Admin: 11/17/17 10:47 Dose: 200 mls/hr Metronidazole (Flagyl 500mg/100ml Ns) 100 mls @ 100 mls/hr IVPB Q8 ASHLEY PRN Reason: Protocol Last Admin: 11/17/17 10:46 Dose: 100 mls/hr Vancomycin HCl 1 gm/ Sodium (Chloride) 250 mls @ 250 mls/hr IVPB Q12H ASHLEY PRN Reason: Protocol Last Admin: 11/17/17 12:35 Dose: 250 mls/hr Ketorolac Tromethamine (Toradol) 15 mg IVP Q6 PRN PRN Reason: Pain, moderate (4-7) Last Admin: 11/16/17 18:56 Dose: 15 mg Mesalamine (Delzicol Dr) 1,200 mg PO QID [facility] Last Admin: 11/17/17 12:16 Dose: 1,200 mg Morphine Sulfate (Morphine) 1 mg IVP Q6 PRN PRN Reason: Pain, severe (8-10) Last Admin: 11/16/17 15:36 Dose: 1 mg Ondansetron HCl (Zofran Inj) 4 mg IVP Q6 PRN PRN Reason: Nausea/Vomiting Pantoprazole Sodium (Protonix Ec Tab) 40 mg PO DAILY [facility] Last Admin: 11/17/17 08:18 Dose: 40 mg Physical Exam - Constitutional Appears: No Acute Distress - Head Exam Head Exam: ATRAUMATIC - Eye Exam Eye Exam: EOMI, PERRL - ENT Exam ENT Exam: Normal Oropharynx - Neck Exam Neck exam: Positive for: Full Rom - Respiratory Exam Respiratory Exam: Clear to Auscultation Bilateral, NORMAL BREATHING PATTERN - Cardiovascular Exam Cardiovascular Exam: RRR, +S1, +S2 - GI/Abdominal Exam GI & Abdominal Exam: Normal Bowel Sounds, Soft Additional comments: slightly distended but soft and NT to palpation No guarding, no rebound - Extremities Exam Extremities exam: Positive for: normal inspection - Neurological Exam Neurological exam: Alert, Oriented x3 - Skin Additional comments: small round dry round flat lesion on upper part above the lip, no vesiclles Results - Vital Signs Recent Vital Signs: Last Vital Signs Temp 100 F H 11/17/17 12:11 Pulse 83 11/17/17 08:24 Resp 18 11/17/17 08:24 BP 88/55 L 11/17/17 08:24 Pulse Ox 99 11/17/17 08:24 - Labs Result Diagrams: 11/17/17 05:40 11/17/17 05:40 Labs: Laboratory Results - last 24 hr 11/17/17 11/17/17 11/17/17 05:40 05:40 07:50 WBC 4.5 L RBC 3.92 Hgb 8.3 L Hct 25.6 L MCV 65.3 L MCH 21.2 L MCHC 32.4 L RDW 18.6 H Plt Count 412 H MPV 7.1 L Neut % (Auto) 72.5 Lymph % (Auto) 14.3 L [place] % (Auto) 10.3 H Eos % (Auto) 2.5 Baso % (Auto) 0.4 Neut # (Auto) 3.3 Lymph # (Auto) 0.6 L [place] # (Auto) 0.5 Eos # (Auto) 0.1 Baso # (Auto) 0.0 Sodium 134 Potassium 3.9 Chloride 103 Carbon Dioxide 25 Anion Gap 10 BUN 7 Creatinine 0.7 Est GFR ( Amer) > 60 Est GFR (Non-Af Amer) > 60 Random Glucose 96 Calcium 8.0 L Iron TIBC % Saturation Ferritin 19.7 Total Bilirubin 0.4 Direct Bilirubin 0.2 AST 37 H ALT 39 Alkaline Phosphatase 380 H Total Protein 5.5 L Albumin 2.5 L Globulin 3.1 Albumin/Globulin Ratio 0.8 L Vitamin B12 352 25-OH Vitamin D Total Blood Type Blood Type Confirm Antibody Screen Crossmatch BBK History Checked 11/17/17 11/17/17 11/17/17 08:30 11:15 11:40 WBC RBC Hgb Hct MCV MCH MCHC RDW Plt Count MPV Neut % (Auto) Lymph % (Auto) [place] % (Auto) Eos % (Auto) Baso % (Auto) Neut # (Auto) Lymph # (Auto) [place] # (Auto) Eos # (Auto) Baso # (Auto) Sodium Potassium Chloride Carbon Dioxide Anion Gap BUN Creatinine Est GFR ( Amer) Est GFR (Non-Af Amer) Random Glucose Calcium Iron 11 L TIBC 323 % Saturation 3 L Ferritin Total Bilirubin Direct Bilirubin AST ALT Alkaline Phosphatase Total Protein Albumin Globulin Albumin/Globulin Ratio Vitamin B12 25-OH Vitamin D Total < 12.8 L Blood Type O POSITIVE Blood Type Confirm O POSITIVE Antibody Screen Negative Crossmatch See Detail BBK History Checked No verified bt Laboratory Results - last 72 hr 11/15/17 11/15/17 11/15/17 09:30 09:30 09:30 WBC 5.6 RBC 4.26 Hgb 8.9 L D Hct 28.1 L MCV 66.0 L D MCH 20.8 L MCHC 31.6 L RDW 19.0 H Plt Count 415 H D MPV 6.8 L Neut % (Auto) 80.9 H Lymph % (Auto) 8.4 L [place] % (Auto) 7.3 Eos % (Auto) 3.1 Baso % (Auto) 0.3 Neut # (Auto) 4.5 Lymph # (Auto) 0.5 L [place] # (Auto) 0.4 Eos # (Auto) 0.2 Baso # (Auto) 0.0 Neutrophils % (Manual) 79 H Band Neutrophils % 4 H Lymphocytes % (Manual) 9 L Monocytes % (Manual) 6 Eosinophils % (Manual) 2 Platelet Estimate Slightly increased H Hypochromasia (manual) Moderate Anisocytosis (manual) Slight Microcytosis (manual) Moderate Target Cells Slight Ovalocytes Slight Schistocytes Slight Retic Count PT 12.2 INR 1.1 APTT 31.3 pO2 VBG pH VBG pCO2 VBG HCO3 VBG Total CO2 VBG O2 Sat (Calc) VBG Base Excess VBG Potassium Glucose Lactate FiO2 Sodium 134 Potassium 3.7 Chloride 99 Carbon Dioxide 27 Anion Gap 12 BUN 8 Creatinine 0.6 L Est GFR ( Amer) > 60 Est GFR (Non-Af Amer) > 60 Random Glucose 99 Calcium 8.1 L Phosphorus 3.2 Magnesium 1.9 Iron TIBC % Saturation Ferritin Total Bilirubin 0.4 Direct Bilirubin AST 48 H ALT 49 Alkaline Phosphatase 430 H Total Protein 6.0 L Albumin 2.8 L Globulin 3.2 Albumin/Globulin Ratio 0.9 L Vitamin B12 25-OH Vitamin D Total Venous Blood Potassium Urine Color Urine Clarity Urine pH Ur Specific [place] Urine Protein Urine Glucose (UA) Urine Ketones Urine Blood Urine Nitrate Urine Bilirubin Urine Urobilinogen Ur Leukocyte Esterase Urine RBC (Auto) Urine Microscopic WBC Ur Squamous Epith Cells Urine Bacteria C. difficile Ag & Toxin Blood Type Blood Type Confirm Antibody Screen Crossmatch BBK History Checked 11/15/17 11/15/17 11/16/17 09:30 10:00 04:20 WBC 3.4 L RBC 3.64 L Hgb 7.7 L Hct 24.0 L MCV 65.9 L MCH 21.1 L MCHC 32.0 L RDW 18.6 H Plt Count 374 MPV Neut % (Auto) Lymph % (Auto) [place] % (Auto) Eos % (Auto) Baso % (Auto) Neut # (Auto) Lymph # (Auto) [place] # (Auto) Eos # (Auto) Baso # (Auto) Neutrophils % (Manual) Band Neutrophils % Lymphocytes % (Manual) Monocytes % (Manual) Eosinophils % (Manual) Platelet Estimate Hypochromasia (manual) Anisocytosis (manual) Microcytosis (manual) Target Cells Ovalocytes Schistocytes Retic Count PT INR APTT pO2 26 L VBG pH 7.42 VBG pCO2 46 VBG HCO3 27.1 VBG Total CO2 31.2 H VBG O2 Sat (Calc) 52.6 VBG Base Excess 4.5 H VBG Potassium 3.6 Glucose 102 Lactate 1.3 FiO2 21.0 Sodium 133.0 Potassium Chloride 101.0 Carbon Dioxide Anion Gap BUN Creatinine Est GFR ( Amer) Est GFR (Non-Af Amer) Random Glucose Calcium Phosphorus Magnesium Iron TIBC % Saturation Ferritin Total Bilirubin Direct Bilirubin AST ALT Alkaline Phosphatase Total Protein Albumin Globulin Albumin/Globulin Ratio Vitamin B12 25-OH Vitamin D Total Venous Blood Potassium 3.6 Urine Color Yellow Urine Clarity Cloudy Urine pH 6.0 Ur Specific [place] 1.014 Urine Protein Negative Urine Glucose (UA) Neg Urine Ketones Negative Urine Blood Negative Urine Nitrate Negative Urine Bilirubin Negative Urine Urobilinogen 0.2-1.0 Ur Leukocyte Esterase Neg Urine RBC (Auto) 1 Urine Microscopic WBC 8 H Ur Squamous Epith Cells 8 H Urine Bacteria Rare C. difficile Ag & Toxin Blood Type Blood Type Confirm Antibody Screen Crossmatch BBK History Checked 11/16/17 11/16/17 11/17/17 04:20 07:00 05:40 WBC 4.5 L RBC 3.92 Hgb 8.3 L Hct 25.6 L MCV 65.3 L MCH 21.2 L MCHC 32.4 L RDW 18.6 H Plt Count 412 H MPV 7.1 L Neut % (Auto) 72.5 Lymph % (Auto) 14.3 L [place] % (Auto) 10.3 H Eos % (Auto) 2.5 Baso % (Auto) 0.4 Neut # (Auto) 3.3 Lymph # (Auto) 0.6 L [place] # (Auto) 0.5 Eos # (Auto) 0.1 Baso # (Auto) 0.0 Neutrophils % (Manual) Band Neutrophils % Lymphocytes % (Manual) Monocytes % (Manual) Eosinophils % (Manual) Platelet Estimate Hypochromasia (manual) Anisocytosis (manual) Microcytosis (manual) Target Cells Ovalocytes Schistocytes Retic Count PT INR APTT pO2 VBG pH VBG pCO2 VBG HCO3 VBG Total CO2 VBG O2 Sat (Calc) VBG Base Excess VBG Potassium Glucose Lactate FiO2 Sodium 136 Potassium 3.5 L Chloride 103 Carbon Dioxide 26 Anion Gap 11 BUN 5 L Creatinine 0.8 Est GFR ( Amer) > 60 Est GFR (Non-Af Amer) > 60 Random Glucose 85 Calcium 7.9 L Phosphorus Magnesium Iron TIBC % Saturation Ferritin Total Bilirubin 0.4 Direct Bilirubin AST 33 ALT 42 Alkaline Phosphatase 320 H D Total Protein 5.1 L Albumin 2.3 L Globulin 2.8 Albumin/Globulin Ratio 0.8 L Vitamin B12 25-OH Vitamin D Total Venous Blood Potassium Urine Color Urine Clarity Urine pH Ur Specific [place] Urine Protein Urine Glucose (UA) Urine Ketones Urine Blood Urine Nitrate Urine Bilirubin Urine Urobilinogen Ur Leukocyte Esterase Urine RBC (Auto) Urine Microscopic WBC Ur Squamous Epith Cells Urine Bacteria C. difficile Ag & Toxin Positive antigen Blood Type Blood Type Confirm Antibody Screen Crossmatch BBK History Checked 11/17/17 11/17/17 11/17/17 05:40 07:50 08:30 WBC RBC Hgb Hct MCV MCH MCHC RDW Plt Count MPV Neut % (Auto) Lymph % (Auto) [place] % (Auto) Eos % (Auto) Baso % (Auto) Neut # (Auto) Lymph # (Auto) [place] # (Auto) Eos # (Auto) Baso # (Auto) Neutrophils % (Manual) Band Neutrophils % Lymphocytes % (Manual) Monocytes % (Manual) Eosinophils % (Manual) Platelet Estimate Hypochromasia (manual) Anisocytosis (manual) Microcytosis (manual) Target Cells Ovalocytes Schistocytes Retic Count PT INR APTT pO2 VBG pH VBG pCO2 VBG HCO3 VBG Total CO2 VBG O2 Sat (Calc) VBG Base Excess VBG Potassium Glucose Lactate FiO2 Sodium 134 Potassium 3.9 Chloride 103 Carbon Dioxide 25 Anion Gap 10 BUN 7 Creatinine 0.7 Est GFR ( Amer) > 60 Est GFR (Non-Af Amer) > 60 Random Glucose 96 Calcium 8.0 L Phosphorus Magnesium Iron 11 L TIBC 323 % Saturation 3 L Ferritin 19.7 Total Bilirubin 0.4 Direct Bilirubin 0.2 AST 37 H ALT 39 Alkaline Phosphatase 380 H Total Protein 5.5 L Albumin 2.5 L Globulin 3.1 Albumin/Globulin Ratio 0.8 L Vitamin B12 352 25-OH Vitamin D Total < 12.8 L Venous Blood Potassium Urine Color Urine Clarity Urine pH Ur Specific [place] Urine Protein Urine Glucose (UA) Urine Ketones Urine Blood Urine Nitrate Urine Bilirubin Urine Urobilinogen Ur Leukocyte Esterase Urine RBC (Auto) Urine Microscopic WBC Ur Squamous Epith Cells Urine Bacteria C. difficile Ag & Toxin Blood Type Blood Type Confirm Antibody Screen Crossmatch BBK History Checked 11/17/17 11/17/17 11/17/17 11:15 11:40 14:38 WBC RBC Hgb Hct MCV MCH MCHC RDW Plt Count MPV Neut % (Auto) Lymph % (Auto) [place] % (Auto) Eos % (Auto) Baso % (Auto) Neut # (Auto) Lymph # (Auto) [place] # (Auto) Eos # (Auto) Baso # (Auto) Neutrophils % (Manual) Band Neutrophils % Lymphocytes % (Manual) Monocytes % (Manual) Eosinophils % (Manual) Platelet Estimate Hypochromasia (manual) Anisocytosis (manual) Microcytosis (manual) Target Cells Ovalocytes Schistocytes Retic Count 1.5 PT INR APTT pO2 VBG pH VBG pCO2 VBG HCO3 VBG Total CO2 VBG O2 Sat (Calc) VBG Base Excess VBG Potassium Glucose Lactate FiO2 Sodium Potassium Chloride Carbon Dioxide Anion Gap BUN Creatinine Est GFR ( Amer) Est GFR (Non-Af Amer) Random Glucose Calcium Phosphorus Magnesium Iron TIBC % Saturation Ferritin Total Bilirubin Direct Bilirubin AST ALT Alkaline Phosphatase Total Protein Albumin Globulin Albumin/Globulin Ratio Vitamin B12 25-OH Vitamin D Total Venous Blood Potassium Urine Color Urine Clarity Urine pH Ur Specific [place] Urine Protein Urine Glucose (UA) Urine Ketones Urine Blood Urine Nitrate Urine Bilirubin Urine Urobilinogen Ur Leukocyte Esterase Urine RBC (Auto) Urine Microscopic WBC Ur Squamous Epith Cells Urine Bacteria C. difficile Ag & Toxin Blood Type O POSITIVE Blood Type Confirm O POSITIVE Antibody Screen Negative Crossmatch See Detail BBK History Checked No verified bt Microbiology 11/15/17 09:30 Blood Blood Culture - Preliminary NO GROWTH AFTER 48 HOURS 11/15/17 09:30 Blood Blood Culture - Preliminary Gram Positive Cocci 11/15/17 09:30 Blood Gram Stain - Preliminary 11/15/17 09:30 Urine,Clean Catch Urine Culture - Final No Growth (<1,000 CFU/ML) Accession No. : [id number] Patient Name / ID : REGINA STONE E / [id number] Exam Date : 11/15/2017 12:19:52 ( Approved ) Study Comment : Sex / Age : F / [id number] Creator : Nathanael Perdomo MD Dictator : Nathanael Perdomo MD Catering Staff Member : Billet Shearer : Nathanael Perdomo MD Approver2 : Report Date : 11/15/2017 12:58:17 My Comment : Date of service: 11/15/2017 PROCEDURE: CT Abdomen and Pelvis with contrast HISTORY: Abdominal pain and fever COMPARISON: 10/07/2017 CT abdomen and pelvis. 10/14/2017 pelvic ultrasound TECHNIQUE: Contrast dose: 95 cc Omnipaque 300 Radiation dose: Total exam DLP = 200.60 mGy-cm. This CT exam was performed using one or more of the following dose reduction techniques: Automated exposure control, adjustment of the mA and/or kV according to patient size, and/or use of iterative reconstruction technique. FINDINGS: LOWER THORAX: Unremarkable. LIVER: Unremarkable. No gross lesion or ductal dilatation. GALLBLADDER AND BILE DUCTS: Unremarkable. PANCREAS: Unremarkable. No gross lesion or ductal dilatation. SPLEEN: Unremarkable. ADRENALS: Unremarkable. No mass. KIDNEYS AND URETERS: Unremarkable. No hydronephrosis. No solid mass. VASCULATURE: Unremarkable. No aortic aneurysm. BOWEL: Continued thickening of the wall of the colon and small bowel consistent with enterocolitis. The most severe findings can be found in the proximal small bowel and cecum -ascending colon. APPENDIX: Normal appendix. PERITONEUM: Unremarkable. No free fluid. No free air. LYMPH NODES: Unremarkable. No enlarged lymph nodes. BLADDER: Unremarkable. REPRODUCTIVE: Unremarkable. BONES: No acute fracture. OTHER FINDINGS: None. IMPRESSION: Persistent enterocolitis. Similar degree in distribution of findings identified on the prior study 10/07/2017. Assessment & Plan (1) Enterocolitis Status: Acute (2) Abdominal pain Status: Acute (3) Fever Status: Acute (4) Bacteremia Status: Acute - Assessment and Plan (Free Text) Assessment: A/P- 37 year old female with recently diagnosed crohn's disease, HCV treated 3 years ago in [facility] admitted with abd. pain, fever, weight loss, diarrhe and n/v etiology of the fever could could be multifactorial certainly GI etiology is the more plausible etiology sopecailly in light of her CT findings of enterocolitis and stool c.diff ag pos, tox negative. she also found to have 1 of the 2 bottle pso GPC in blood cx. plan- advise to continue with Iv flagyl and cipro for treatment of the enterocolitis. however would advise to also treat the c.diff pos AG, eventhough tox negative since pt. is having diarrhe and is febrile and has been on oral abx in past few months ( as per Pt0. advise oral vancomycin . check stool cx. check stool o and P. check another blood cx. advise to start pt. on daptomycin for the GPC in 1 blood cx pending ID and sensitivity. check cpk while on daptomycin. check TTE r/o vegetations. check hep C viral load. check AFP specially since pt. has high ALP. advise to check lyme serology since pt. states ahd ?? pos lyme test in past adn was supposedly treated for it. advised her skin changes above her lip might be secondary to the crohn's disease itself as there may be occasional skin changes associated with it. advise derm evaluation . All above d/w patient at length and she verbalizes full understanding of all above. Thank you for allowing me to take part in the care of this patient.
[2017-11-17] MEDS: Sodium Chloride 0.9% 1,000 ML IV SCH ×2 (14:36→21:10)
[2017-11-17] MEDS ORDERED: DAPTOmycin 500 mg Inj (Cubicin) IV SCH (18:15)
[2017-11-18] MEDS: metroNIDAZOLE 500mg/100ml NS 100 ML IVPB SCH ×3 (01:20→16:27)
[2017-11-18] MEDS: Vancomycin 500 mg (Oral/Rectal USE) PO SCH ×3 (01:20→16:27)
[2017-11-18] MEDS: Sodium Chloride 0.9% 1,000 ML IV SCH ×2 (03:50→06:18)
[2017-11-18 06:27] LABS: MEAN CELL VOLUME 67.9 fl (81.0-99.0); MEAN CORPUSCULAR HEMOGLOBIN 21.9 pg (27.0-31.0); MEAN CORPUSCULAR HGB CONC 32.2 g/dL (33.0-37.0); RBC 4.13 Mil/uL (3.80-5.20); RED CELL DISTRIBUTION WIDTH 20.5 % (11.5-14.5); WHITE BLOOD COUNT 6.6 K/uL (4.8-10.8)
[2017-11-18 06:29] LABS: ALB/GLOB RATIO 0.8 (1.0-2.1); ALBUMIN 2.3 g/dL (3.5-5.0); ALT/SGPT 38 U/L (9-52); AST/SGOT 25 U/L (14-36); BLOOD UREA NITROGEN 5 mg/dl (7-17); CALCIUM 7.7 mg/dL (8.4-10.2); GFR AFRICAN-AMERICAN > 60; GFR NON-AFRICAN AMERICAN > 60
--- NOTE | 2017-11-18 08:57 | CP.PCM.PN ---
<Mariluz Browning - Last Filed: 11/18/17 10:54> Subjective - Date & Time of Evaluation Date of Evaluation: 11/18/17 Time of Evaluation: 07:45 - Subjective Subjective: PGY5 GI follow-up Pt seen and examined bedside Abd pain in lower quadrants B/L, pain improved x4 loose Bm yesterday, denies any blood +fever, chills and diaphoresis overnight ROS: 12 point ROS conducted, neg other than above Objective - Vital Signs/Intake and Output Vital Signs (last 24 hours): Temp Pulse Resp BP Pulse Ox 98.7 F 86 20 88/56 L 96 11/18/17 08:24 11/18/17 08:24 11/18/17 08:24 11/18/17 08:24 11/18/17 08:24 Intake and Output: 11/18/17 11/18/17 06:59 18:59 Intake Total 3213 Balance 3213 - Medications Medications: Current Medications Acetaminophen (Tylenol 325mg Tab) 650 mg PO Q6 PRN PRN Reason: Pain, Mild (1-3) Last Admin: 11/17/17 16:06 Dose: 650 mg Acetaminophen (Tylenol 325mg Tab) 650 mg PO Q4 PRN PRN Reason: Fever >100.4 F Last Admin: 11/17/17 20:28 Dose: 650 mg Ciprofloxacin (Cipro 400mg/200ml Dsw) 400 mg in 200 mls @ 200 mls/hr IVPB Q12 [facility] PRN Reason: Protocol Last Admin: 11/17/17 21:31 Dose: 200 mls/hr Metronidazole (Flagyl 500mg/100ml Ns) 100 mls @ 100 mls/hr IVPB Q8 [facility] PRN Reason: Protocol Last Admin: 11/18/17 01:20 Dose: 100 mls/hr Sodium Chloride (Sodium Chloride 0.9%) 1,000 mls @ 150 mls/hr IV .Q6H40M [facility] Stop: 11/18/17 14:26 Last Admin: 11/18/17 06:18 Dose: 150 mls/hr Daptomycin 260 mg/ Sodium (Chloride) 100 mls @ 100 mls/hr IVPB Q24H [facility] Stop: 11/22/17 20:01 Last Admin: 11/17/17 20:29 Dose: 100 mls/hr Ketorolac Tromethamine (Toradol) 15 mg IVP Q6 PRN PRN Reason: Pain, moderate (4-7) Last Admin: 11/16/17 18:56 Dose: 15 mg Mesalamine (Delzicol Dr) 1,200 mg PO QID [facility] Last Admin: 11/17/17 21:28 Dose: 1,200 mg Morphine Sulfate (Morphine) 1 mg IVP Q6 PRN PRN Reason: Pain, severe (8-10) Last Admin: 11/16/17 15:36 Dose: 1 mg Ondansetron HCl (Zofran Inj) 4 mg IVP Q6 PRN PRN Reason: Nausea/Vomiting Last Admin: 11/17/17 14:00 Dose: 4 mg Pantoprazole Sodium (Protonix Ec Tab) 40 mg PO DAILY [facility] Last Admin: 11/17/17 08:18 Dose: 40 mg Vancomycin HCl (Vancocin (Oral/Rectal Use)) 250 mg PO Q8 [facility] PRN Reason: Protocol Last Admin: 11/18/17 01:20 Dose: 250 mg - Labs Labs: 11/18/17 05:20 11/18/17 05:20 PT 12.2 Seconds (9.8-13.1) 11/15/17 09:30 INR 1.1 (0.9-1.2) 11/15/17 09:30 APTT 31.3 Seconds (25.6-37.1) 11/15/17 09:30 - Constitutional Appears: Well, No Acute Distress - Head Exam Head Exam: ATRAUMATIC, NORMOCEPHALIC - Eye Exam Eye Exam: Normal appearance - ENT Exam ENT Exam: Mucous Membranes Moist, Normal Exam - Neck Exam Neck Exam: Normal Inspection - Respiratory Exam Respiratory Exam: Clear to Ausculation Bilateral, NORMAL BREATHING PATTERN. absent: Rales, Rhonchi, Wheezes, Respiratory Distress - Cardiovascular Exam Cardiovascular Exam: REGULAR RHYTHM, +S1, +S2 - GI/Abdominal Exam GI & Abdominal Exam: Soft, Tenderness (lower quadrants B/L), Hyperactive Bowel Sounds, Normal Bowel Sounds. absent: Guarding, Rigid, Organomegaly, Rebound - Extremities Exam Extremities Exam: absent: Joint Swelling, Pedal Edema - Neurological Exam Neurological Exam: Alert, Awake, Oriented x3 - Psychiatric Exam Psychiatric exam: Normal Affect, Normal Mood - Skin Skin Exam: Dry, Intact, Normal Color, Warm Assessment and Plan - Assessment and Plan (Free Text) Assessment: Kelsea Renee is a 37F w/ hx of Crohn's who presents with abd pain, diarrhea, and weightloss Crohn's flare vs infectous etiology Weightloss 2/2 above Diarrhea 2/2 above + HCV antibody s/p tx, unknown response Grm + bactermia febrile Plan: -continue mesalamine 1.2g QID -will need follow-up in Dec in GI clinic -waiting on HCV viral load -fecal calprotectin pending -recommend iron supplement -will need close follow-up as oupt -pt afebrile overnight w/ fever, chills and diaphoresis -ID on board -as per ID, continue cipro, flagyl , and daptomycin -waiting on repeat blood cultures, and ECHO -will get CTE w/ IV contast will D/W Dr. Cason <Keith Cason - Last Filed: 11/18/17 11:46> Objective - Vital Signs/Intake and Output Vital Signs (last 24 hours): Temp Pulse Resp BP Pulse Ox 97.6 F 78 20 93/58 L 92 L 11/18/17 09:48 11/18/17 10:56 11/18/17 09:48 11/18/17 10:56 11/18/17 09:48 Intake and Output: 11/18/17 11/18/17 06:59 18:59 Intake Total 3213 Balance 3213 - Medications Medications: Current Medications Acetaminophen (Tylenol 325mg Tab) 650 mg PO Q6 PRN PRN Reason: Pain, Mild (1-3) Last Admin: 11/17/17 16:06 Dose: 650 mg Acetaminophen (Tylenol 325mg Tab) 650 mg PO Q4 PRN PRN Reason: Fever >100.4 F Last Admin: 11/17/17 20:28 Dose: 650 mg Barium Sulfate (Volumen 450 Ml) 450 ml PO ONCE ONE Stop: 11/18/17 13:01 Enoxaparin Sodium (Lovenox) 40 mg SC DAILY [facility] PRN Reason: Protocol Ciprofloxacin (Cipro 400mg/200ml Dsw) 400 mg in 200 mls @ 200 mls/hr IVPB Q12 [facility] PRN Reason: Protocol Last Admin: 11/18/17 09:16 Dose: 200 mls/hr Metronidazole (Flagyl 500mg/100ml Ns) 100 mls @ 100 mls/hr IVPB Q8 [facility] PRN Reason: Protocol Last Admin: 11/18/17 09:15 Dose: 100 mls/hr Sodium Chloride (Sodium Chloride 0.9%) 1,000 mls @ 150 mls/hr IV .Q6H40M [facility] Stop: 11/18/17 14:26 Last Admin: 11/18/17 06:18 Dose: 150 mls/hr Daptomycin 260 mg/ Sodium (Chloride) 100 mls @ 100 mls/hr IVPB Q24H [facility] Stop: 11/22/17 20:01 Last Admin: 11/17/17 20:29 Dose: 100 mls/hr Ketorolac Tromethamine (Toradol) 15 mg IVP Q6 PRN PRN Reason: Pain, moderate (4-7) Last Admin: 11/18/17 09:58 Dose: 15 mg Mesalamine (Delzicol Dr) 1,200 mg PO QID [facility] Last Admin: 11/18/17 09:17 Dose: 1,200 mg Morphine Sulfate (Morphine) 1 mg IVP Q6 PRN PRN Reason: Pain, severe (8-10) Last Admin: 11/16/17 15:36 Dose: 1 mg Ondansetron HCl (Zofran Inj) 4 mg IVP Q6 PRN PRN Reason: Nausea/Vomiting Last Admin: 11/18/17 09:58 Dose: 4 mg Pantoprazole Sodium (Protonix Ec Tab) 40 mg PO DAILY [facility] Last Admin: 11/18/17 09:18 Dose: 40 mg Vancomycin HCl (Vancocin (Oral/Rectal Use)) 250 mg PO Q8 [facility] PRN Reason: Protocol Last Admin: 11/18/17 09:18 Dose: 250 mg - Labs Labs: 11/18/17 05:20 11/18/17 05:20 PT 12.2 Seconds (9.8-13.1) 11/15/17 09:30 INR 1.1 (0.9-1.2) 11/15/17 09:30 APTT 31.3 Seconds (25.6-37.1) 11/15/17 09:30 Attending/Attestation - Attestation I have personally seen and examined this patient.: Yes I have fully participated in the care of the patient.: Yes I have reviewed all pertinent clinical information, including history, physical exam and plan: Yes Notes (Text): 11/18/17 11:44 This is a 37 yr old F with recently diagnosed of Crohn's who presents with abd pain, diarrhea, and weight loss due to non compliance of medications. HCv ab positive. HCv viral load pending. Recommend correct dosing of mesalamine and vitamin and probiotics. Growing GPC+ on blood cultures. Continue antibiotics and appreciate ID consult. Quantiferon and HIV testing pending results. s/p one unit PRBC for fatigue. Diet as tolerated. Agree with po vancomycin for C diff. Will follow closely
[2017-11-18] MEDS: Ciprofloxacin 400mg/200ml D5W 400 MG/200 ML BAG IVPB SCH ×2 (09:16→20:58)
[2017-11-18] MEDS: Pantoprazole 40 mg EC Tab PO SCH (09:18)
[2017-11-18] MEDS ORDERED: Barium Sulfate Susp 0.1% w/v, 0.1% w/w 450 mL Bottle PO ONE ×4 (13:00→13:40)
[2017-11-18] MEDS: Enoxaparin 40 mg Syringe SC SCH (13:07)
--- NOTE | 2017-11-18 13:21 | CP.PCM.PN ---
Subjective - Date & Time of Evaluation Date of Evaluation: 11/18/17 Time of Evaluation: 13:21 - Subjective Subjective: ID Note- Pt. seen and examined today . pt. seen with her family at her bedside. pt. states she still has abd discomfort but less diarrhea today ( twice) and 1 episode of nausea and vomit. denies any fever. is going for abd Ct with contrast later today. Objective - Vital Signs/Intake and Output Vital Signs (last 24 hours): Temp Pulse Resp BP Pulse Ox 97.6 F 78 20 93/58 L 92 L 11/18/17 09:48 11/18/17 10:56 11/18/17 09:48 11/18/17 10:56 11/18/17 09:48 Intake and Output: 11/18/17 11/18/17 06:59 18:59 Intake Total 3213 Balance 3213 - Medications Medications: Current Medications Acetaminophen (Tylenol 325mg Tab) 650 mg PO Q6 PRN PRN Reason: Pain, Mild (1-3) Last Admin: 11/17/17 16:06 Dose: 650 mg Acetaminophen (Tylenol 325mg Tab) 650 mg PO Q4 PRN PRN Reason: Fever >100.4 F Last Admin: 11/17/17 20:28 Dose: 650 mg Barium Sulfate (Volumen 450 Ml) 450 ml PO ONCE ONE Stop: 11/18/17 13:41 Enoxaparin Sodium (Lovenox) 40 mg SC DAILY [facility] PRN Reason: Protocol Last Admin: 11/18/17 13:07 Dose: 40 mg Ciprofloxacin (Cipro 400mg/200ml Dsw) 400 mg in 200 mls @ 200 mls/hr IVPB Q12 [facility] PRN Reason: Protocol Last Admin: 11/18/17 09:16 Dose: 200 mls/hr Metronidazole (Flagyl 500mg/100ml Ns) 100 mls @ 100 mls/hr IVPB Q8 [facility] PRN Reason: Protocol Last Admin: 11/18/17 09:15 Dose: 100 mls/hr Sodium Chloride (Sodium Chloride 0.9%) 1,000 mls @ 150 mls/hr IV .Q6H40M [facility] Stop: 11/18/17 14:26 Last Admin: 11/18/17 06:18 Dose: 150 mls/hr Daptomycin 260 mg/ Sodium (Chloride) 100 mls @ 100 mls/hr IVPB Q24H [facility] Stop: 11/22/17 20:01 Last Admin: 11/17/17 20:29 Dose: 100 mls/hr Ketorolac Tromethamine (Toradol) 15 mg IVP Q6 PRN PRN Reason: Pain, moderate (4-7) Last Admin: 11/18/17 09:58 Dose: 15 mg Mesalamine (Delzicol Dr) 1,200 mg PO QID [facility] Last Admin: 11/18/17 13:07 Dose: Not Given Morphine Sulfate (Morphine) 1 mg IVP Q6 PRN PRN Reason: Pain, severe (8-10) Last Admin: 11/16/17 15:36 Dose: 1 mg Ondansetron HCl (Zofran Inj) 4 mg IVP Q6 PRN PRN Reason: Nausea/Vomiting Last Admin: 11/18/17 09:58 Dose: 4 mg Pantoprazole Sodium (Protonix Ec Tab) 40 mg PO DAILY [facility] Last Admin: 11/18/17 09:18 Dose: 40 mg Vancomycin HCl (Vancocin (Oral/Rectal Use)) 250 mg PO Q8 [facility] PRN Reason: Protocol Last Admin: 11/18/17 09:18 Dose: 250 mg - Labs Labs: Assessment and Plan (1) Enterocolitis Status: Acute (2) Abdominal pain Status: Acute (3) Fever Status: Acute (4) Bacteremia Status: Acute - Assessment and Plan (Free Text) Assessment: - Constitutional Appears: No Acute Distress - Head Exam Head Exam: ATRAUMATIC - Eye Exam Eye Exam: EOMI, PERRL - ENT Exam ENT Exam: Normal Oropharynx - Neck Exam Neck exam: Positive for: Full Rom - Respiratory Exam Respiratory Exam: Clear to Auscultation Bilateral, NORMAL BREATHING PATTERN - Cardiovascular Exam Cardiovascular Exam: RRR, +S1, +S2 - GI/Abdominal Exam GI & Abdominal Exam: Normal Bowel Sounds, Soft Additional comments: slightly distended but soft and NT to palpation No guarding, no rebound - Extremities Exam Extremities exam: Positive for: normal inspection - Neurological Exam Neurological exam: Alert, Oriented x 3 Laboratory Results - last 72 hr 11/16/17 11/16/17 11/16/17 04:20 04:20 07:00 WBC 3.4 L RBC 3.64 L Hgb 7.7 L Hct 24.0 L MCV 65.9 L MCH 21.1 L MCHC 32.0 L RDW 18.6 H Plt Count 374 MPV Neut % (Auto) Lymph % (Auto) [place] % (Auto) Eos % (Auto) Baso % (Auto) Neut # (Auto) Lymph # (Auto) [place] # (Auto) Eos # (Auto) Baso # (Auto) Retic Count Sodium 136 Potassium 3.5 L Chloride 103 Carbon Dioxide 26 Anion Gap 11 BUN 5 L Creatinine 0.8 Est GFR ( Amer) > 60 Est GFR (Non-Af Amer) > 60 Random Glucose 85 Calcium 7.9 L Iron TIBC % Saturation Ferritin Total Bilirubin 0.4 Direct Bilirubin AST 33 ALT 42 Alkaline Phosphatase 320 H D Total Creatine Kinase Total Protein 5.1 L Albumin 2.3 L Globulin 2.8 Albumin/Globulin Ratio 0.8 L Alpha Fetoprotein Vitamin B12 25-OH Vitamin D Total C. difficile Ag & Toxin Positive antigen HIV 1&2 Antibody Screen Blood Type Blood Type Confirm Antibody Screen Crossmatch BBK History Checked 11/17/17 11/17/17 11/17/17 05:40 05:40 07:50 WBC 4.5 L RBC 3.92 Hgb 8.3 L Hct 25.6 L MCV 65.3 L MCH 21.2 L MCHC 32.4 L RDW 18.6 H Plt Count 412 H MPV 7.1 L Neut % (Auto) 72.5 Lymph % (Auto) 14.3 L [place] % (Auto) 10.3 H Eos % (Auto) 2.5 Baso % (Auto) 0.4 Neut # (Auto) 3.3 Lymph # (Auto) 0.6 L [place] # (Auto) 0.5 Eos # (Auto) 0.1 Baso # (Auto) 0.0 Retic Count Sodium 134 Potassium 3.9 Chloride 103 Carbon Dioxide 25 Anion Gap 10 BUN 7 Creatinine 0.7 Est GFR ( Amer) > 60 Est GFR (Non-Af Amer) > 60 Random Glucose 96 Calcium 8.0 L Iron TIBC % Saturation Ferritin 19.7 Total Bilirubin 0.4 Direct Bilirubin 0.2 AST 37 H ALT 39 Alkaline Phosphatase 380 H Total Creatine Kinase Total Protein 5.5 L Albumin 2.5 L Globulin 3.1 Albumin/Globulin Ratio 0.8 L Alpha Fetoprotein Vitamin B12 352 25-OH Vitamin D Total C. difficile Ag & Toxin HIV 1&2 Antibody Screen Blood Type Blood Type Confirm Antibody Screen Crossmatch BBK History Checked 11/17/17 11/17/17 11/17/17 08:30 11:15 11:40 WBC RBC Hgb Hct MCV MCH MCHC RDW Plt Count MPV Neut % (Auto) Lymph % (Auto) [place] % (Auto) Eos % (Auto) Baso % (Auto) Neut # (Auto) Lymph # (Auto) [place] # (Auto) Eos # (Auto) Baso # (Auto) Retic Count Sodium Potassium Chloride Carbon Dioxide Anion Gap BUN Creatinine Est GFR ( Amer) Est GFR (Non-Af Amer) Random Glucose Calcium Iron 11 L TIBC 323 % Saturation 3 L Ferritin Total Bilirubin Direct Bilirubin AST ALT Alkaline Phosphatase Total Creatine Kinase Total Protein Albumin Globulin Albumin/Globulin Ratio Alpha Fetoprotein Vitamin B12 25-OH Vitamin D Total < 12.8 L C. difficile Ag & Toxin HIV 1&2 Antibody Screen Blood Type O POSITIVE Blood Type Confirm O POSITIVE Antibody Screen Negative Crossmatch See Detail BBK History Checked No verified bt 11/17/17 11/17/17 11/17/17 14:38 20:09 20:09 WBC RBC Hgb Hct MCV MCH MCHC RDW Plt Count MPV Neut % (Auto) Lymph % (Auto) [place] % (Auto) Eos % (Auto) Baso % (Auto) Neut # (Auto) Lymph # (Auto) [place] # (Auto) Eos # (Auto) Baso # (Auto) Retic Count 1.5 Sodium Potassium Chloride Carbon Dioxide Anion Gap BUN Creatinine Est GFR ( Amer) Est GFR (Non-Af Amer) Random Glucose Calcium Iron TIBC % Saturation Ferritin Total Bilirubin Direct Bilirubin AST ALT Alkaline Phosphatase Total Creatine Kinase < 20 L Total Protein Albumin Globulin Albumin/Globulin Ratio Alpha Fetoprotein 1.2 Vitamin B12 25-OH Vitamin D Total C. difficile Ag & Toxin HIV 1&2 Antibody Screen Blood Type Blood Type Confirm Antibody Screen Crossmatch BBK History Checked 11/17/17 11/18/17 11/18/17 20:09 05:20 05:20 WBC 6.6 RBC 4.13 Hgb 9.0 L Hct 28.1 L MCV 67.9 L D MCH 21.9 L MCHC 32.2 L RDW 20.5 H Plt Count 380 MPV Neut % (Auto) Lymph % (Auto) [place] % (Auto) Eos % (Auto) Baso % (Auto) Neut # (Auto) Lymph # (Auto) [place] # (Auto) Eos # (Auto) Baso # (Auto) Retic Count Sodium 138 Potassium 3.4 L Chloride 109 H Carbon Dioxide 22 Anion Gap 10 BUN 5 L Creatinine 0.7 Est GFR ( Amer) > 60 Est GFR (Non-Af Amer) > 60 Random Glucose 98 Calcium 7.7 L Iron TIBC % Saturation Ferritin Total Bilirubin 0.6 Direct Bilirubin AST 25 ALT 38 Alkaline Phosphatase 351 H Total Creatine Kinase Total Protein 5.2 L Albumin 2.3 L Globulin 2.8 Albumin/Globulin Ratio 0.8 L Alpha Fetoprotein Vitamin B12 25-OH Vitamin D Total C. difficile Ag & Toxin HIV 1&2 Antibody Screen Negative Blood Type Blood Type Confirm Antibody Screen Crossmatch BBK History Checked Microbiology 11/15/17 07:00 Stool Stool Culture - Final NO SALMONELLA, SHIGELLA OR CAMPYLOBACTER ISOLATED. 11/15/17 09:30 Blood Blood Culture - Preliminary NO GROWTH AFTER 3 DAYS 11/15/17 09:30 Blood S.aureus & Coag-Neg Staph PNA FISH - Final 11/15/17 09:30 Blood Blood Culture - Final Coagulase Neg Staphylococcus 11/15/17 09:30 Blood Gram Stain - Final 11/17/17 05:55 Blood Blood Culture - Preliminary NO GROWTH AFTER 24 HOURS 11/16/17 17:55 Blood Blood Culture - Preliminary NO GROWTH AFTER 24 HOURS 11/16/17 17:45 Blood Blood Culture - Preliminary NO GROWTH AFTER 24 HOURS 11/15/17 09:30 Urine,Clean Catch Urine Culture - Final No Growth (<1,000 CFU/ML) A/P- 37 year old female with recently diagnosed crohn's disease, HCV treated 3 years ago in [facility] admitted with abd. pain, fever, weight loss, diarrhea and n/v afebrile tyoday normal wbc count stool c.diff ag pos, tox negative. she also found to have 1 of the 2 bottle - coag neg staph repeat blood cx- neg x 3 plan- advise to continue with Iv flagyl and cipro for treatment of the enterocolitis.day #3 continue with oral vanco for c.diff day #2. check stool cx. check stool o and P. check another blood cx. coag neg staph in 1 blood cx on admission was most likely a contaminant. advise to d/c IV daptomycin. await TTE report. check hep C viral load. check AFP specially since pt. has high ALP. gi rec for crohn's disease. All above d/w patient at length and she verbalizes full understanding of all above.
[2017-11-18] MEDS: Barium Sulfate Susp 0.1% w/v, 0.1% w/w 450 mL Bottle PO ONE ×3 (14:14→14:54)
--- NOTE | 2017-11-18 14:34 | CP.PCM.PN ---
Subjective - Date & Time of Evaluation Date of Evaluation: 11/18/17 Time of Evaluation: 14:34 - Subjective Subjective: Patient seen and examined at bedside, c/o abdominal pain, diarrhea at 5AM. Reviewed labs, charts, and nurse notes. Objective - Vital Signs/Intake and Output Vital Signs (last 24 hours): Temp Pulse Resp BP Pulse Ox 97.6 F 78 20 93/58 L 92 L 11/18/17 09:48 11/18/17 10:56 11/18/17 09:48 11/18/17 10:56 11/18/17 09:48 Intake and Output: 11/18/17 11/18/17 06:59 18:59 Intake Total 3213 Balance 3213 - Medications Medications: Current Medications Acetaminophen (Tylenol 325mg Tab) 650 mg PO Q6 PRN PRN Reason: Pain, Mild (1-3) Last Admin: 11/17/17 16:06 Dose: 650 mg Acetaminophen (Tylenol 325mg Tab) 650 mg PO Q4 PRN PRN Reason: Fever >100.4 F Last Admin: 11/17/17 20:28 Dose: 650 mg Enoxaparin Sodium (Lovenox) 40 mg SC DAILY [facility] PRN Reason: Protocol Last Admin: 11/18/17 13:07 Dose: 40 mg Ciprofloxacin (Cipro 400mg/200ml Dsw) 400 mg in 200 mls @ 200 mls/hr IVPB Q12 [facility] PRN Reason: Protocol Last Admin: 11/18/17 09:16 Dose: 200 mls/hr Metronidazole (Flagyl 500mg/100ml Ns) 100 mls @ 100 mls/hr IVPB Q8 [facility] PRN Reason: Protocol Last Admin: 11/18/17 09:15 Dose: 100 mls/hr Daptomycin 260 mg/ Sodium (Chloride) 100 mls @ 100 mls/hr IVPB Q24H [facility] Stop: 11/22/17 20:01 Last Admin: 11/17/17 20:29 Dose: 100 mls/hr Ketorolac Tromethamine (Toradol) 15 mg IVP Q6 PRN PRN Reason: Pain, moderate (4-7) Last Admin: 11/18/17 09:58 Dose: 15 mg Mesalamine (Delzicol Dr) 1,200 mg PO QID [facility] Last Admin: 11/18/17 13:07 Dose: Not Given Morphine Sulfate (Morphine) 1 mg IVP Q6 PRN PRN Reason: Pain, severe (8-10) Last Admin: 11/16/17 15:36 Dose: 1 mg Ondansetron HCl (Zofran Inj) 4 mg IVP Q6 PRN PRN Reason: Nausea/Vomiting Last Admin: 11/18/17 09:58 Dose: 4 mg Pantoprazole Sodium (Protonix Ec Tab) 40 mg PO DAILY [facility] Last Admin: 11/18/17 09:18 Dose: 40 mg Vancomycin HCl (Vancocin (Oral/Rectal Use)) 250 mg PO Q8 [facility] PRN Reason: Protocol Last Admin: 11/18/17 09:18 Dose: 250 mg - Labs Labs: 11/18/17 05:20 11/18/17 05:20 PT 12.2 Seconds (9.8-13.1) 11/15/17 09:30 INR 1.1 (0.9-1.2) 11/15/17 09:30 APTT 31.3 Seconds (25.6-37.1) 11/15/17 09:30 Assessment and Plan - Assessment and Plan (Free Text) Assessment: 37 y/o female w/ pmh of Crohn's admitted for enterocolitis sepsis, and bactermia c/o abdominal pain and diarrhea. Plan: 1)Staph Aureus Bactermia w/ Sepsis -possibly likely 2/2 entercolitis -Positive blood cultures X1 for staph aureus -echo pending -repeat blood cultures pending -Fever resolved -CT shows enterocolitis -enterography CT pending -no leukocytosis WBC 6.6 -normal lactate levels in ED (1.3) -Acetaminophen 650 mg PO for fevers -started on daptomycin, Cipro 400 , Metronidazole 500, 1gm Vanco -will check vanc trough -stool, blood and urine cultures pending 2) Enterocolitis -Infectious vs. inflammatory -abdominal pain -stool culture pending -c.diff toxin negative -Toradol 15mg IVP for pain mgmt -GI following 3) Crohn's disease -now w/ non-bloody diarrhea -C/w Mesalamine 1200mg PO QID 4)Microcytic Anemia -hgb 7.7 --> trasnfusion -->8.3 -->9 -s/p 1 unit PRBC transfusion -likely 2/2 bloody diarrhea -will follow cbc -PT, INR, aPTT wnl -Iron and TIBC studies pending 4)Rash -improving -seen and managed by outpatient procurement agent -will monitor -JESSY negative 5) Amenorrhea -LMP September 25, 2017 -s/p tubal ligation -being assessed by OBGYN outpatient 6)Diet -NPO 7) DVT Prophylaxis -SCDs -Lovenonx 40 SC
[2017-11-18] MEDS ORDERED: Sodium Chloride 0.9% 100 ML ONE (15:03)
[2017-11-18] MEDS ORDERED: Iodixanol 320 MG/ML 100 ML BOTTLE IV ONE (15:03)
[2017-11-19] MEDS: Vancomycin 500 mg (Oral/Rectal USE) PO SCH ×3 (00:29→16:33)
[2017-11-19] MEDS: metroNIDAZOLE 500mg/100ml NS 100 ML IVPB SCH ×3 (00:29→16:36)
[2017-11-19 07:14] LABS: BASO % 0.4 % (0.0-2.0); EOS # 0.2 K/uL (0.0-0.7); EOS % 5.1 % (0.0-4.0); HEMOGLOBIN 8.2 g/dL (12.0-16.0); LYMPH # 0.6 K/uL (1.0-4.3); LYMPH % 14.5 % (20.0-40.0); MEAN CELL VOLUME 67.7 fl (81.0-99.0); MEAN CORPUSCULAR HEMOGLOBIN 22.1 pg (27.0-31.0); MEAN CORPUSCULAR HGB CONC 32.6 g/dL (33.0-37.0); MEAN PLATELET VOLUME 7.3 fl (7.2-11.7); MONO # 0.5 K/uL (0.0-0.8); NEUT # 2.9 K/uL (1.8-7.0); RBC 3.7 Mil/uL (3.80-5.20); RED CELL DISTRIBUTION WIDTH 20.7 % (11.5-14.5); WHITE BLOOD COUNT 4.3 K/uL (4.8-10.8)
[2017-11-19 07:28] LABS: BLOOD UREA NITROGEN 4 mg/dl (7-17); CALCIUM 7.5 mg/dL (8.4-10.2); GFR AFRICAN-AMERICAN > 60; GFR NON-AFRICAN AMERICAN > 60
[2017-11-19] MEDS ORDERED: Sodium Chloride 0.9% 1,000 ML IV SCH (07:45)
[2017-11-19] MEDS: Ciprofloxacin 400mg/200ml D5W 400 MG/200 ML BAG IVPB SCH ×2 (08:36→21:14)
[2017-11-19] MEDS: Enoxaparin 40 mg Syringe SC SCH (08:40)
[2017-11-19] MEDS: Pantoprazole 40 mg EC Tab PO SCH (08:43)
--- NOTE | 2017-11-19 08:56 | CP.PCM.CON ---
History of Present Illness - History of Present Illness History of Present Illness: Gastroenterology Fellow/PGY6 Progress Note Past Patient History - Past Medical History & Family History Past Medical History?: Yes - Past Social History Smoking Status: Never Smoked Alcohol: None Drugs: Denies Home Situation {Lives}: With Family - CARDIAC Hx Cardiac Disorders: No - PULMONARY Hx Respiratory Disorders: No - NEUROLOGICAL Hx Neurological Disorder: Yes Other/Comment: frequent headaches - HEENT Hx HEENT Problems: No - RENAL Hx Chronic Kidney Disease: No - ENDOCRINE/METABOLIC Hx Endocrine Disorders: No - HEMATOLOGICAL/ONCOLOGICAL Hx Blood Disorders: Yes Hx AIDS: No Hx Hepatitis C: Yes (diagnosed 3 years ago) Hx Human Immunodeficiency Virus (HIV): No - INTEGUMENTARY Hx Dermatological Problems: Yes Hx Psoriasis: Yes - MUSCULOSKELETAL/RHEUMATOLOGICAL Hx Musculoskeletal Disorders: Yes Hx Back Pain: Yes Hx Falls: No - GASTROINTESTINAL Hx Gastrointestinal Disorders: Yes Hx Crohn's Disease: Yes Hx Diarrhea: Yes Hx Gastritis: Yes - GENITOURINARY/GYNECOLOGICAL Hx Genitourinary Disorders: Yes Other/Comment: periods stopped - PSYCHIATRIC Hx Psychophysiologic Disorder: No Hx Substance Use: No - SURGICAL HISTORY Hx Surgeries: Yes Hx Section: Yes - ANESTHESIA Hx Anesthesia: Yes Hx Anesthesia Reactions: No Hx Malignant Hyperthermia: No Meds Allergies/Adverse Reactions: Allergies Allergy/AdvReac Type Severity Reaction Status Date / Time Penicillins Allergy Severe RASH Verified 09/30/17 04:33 carrot Allergy SWELLING Verified 11/16/17 19:38 nut - unspecified Allergy RASH Verified 09/30/17 04:33 soy Allergy SWELLING Verified 11/16/17 19:39 carrot Allergy SHORTNESS Uncoded 11/16/17 19:38 OF BREATH - Medications Medications: Current Medications Acetaminophen (Tylenol 325mg Tab) 650 mg PO Q6 PRN PRN Reason: Pain, Mild (1-3) Last Admin: 11/17/17 16:06 Dose: 650 mg Acetaminophen (Tylenol 325mg Tab) 650 mg PO Q4 PRN PRN Reason: Fever >100.4 F Last Admin: 11/17/17 20:28 Dose: 650 mg Enoxaparin Sodium (Lovenox) 40 mg SC DAILY [facility] PRN Reason: Protocol Last Admin: 11/19/17 08:40 Dose: 40 mg Ciprofloxacin (Cipro 400mg/200ml Dsw) 400 mg in 200 mls @ 200 mls/hr IVPB Q12 [facility] PRN Reason: Protocol Last Admin: 11/19/17 08:36 Dose: 200 mls/hr Metronidazole (Flagyl 500mg/100ml Ns) 100 mls @ 100 mls/hr IVPB Q8 [facility] PRN Reason: Protocol Last Admin: 11/19/17 08:37 Dose: 100 mls/hr Sodium Chloride (Sodium Chloride 0.9%) 1,000 mls @ 150 mls/hr IV .Q6H40M [facility] Stop: 11/20/17 07:41 Ketorolac Tromethamine (Toradol) 15 mg IVP Q6 PRN PRN Reason: Pain, moderate (4-7) Last Admin: 11/18/17 09:58 Dose: 15 mg Mesalamine (Delzicol Dr) 1,200 mg PO QID [facility] Last Admin: 11/19/17 08:41 Dose: 1,200 mg Morphine Sulfate (Morphine) 1 mg IVP Q6 PRN PRN Reason: Pain, severe (8-10) Last Admin: 11/16/17 15:36 Dose: 1 mg Ondansetron HCl (Zofran Inj) 4 mg IVP Q6 PRN PRN Reason: Nausea/Vomiting Last Admin: 11/18/17 09:58 Dose: 4 mg Pantoprazole Sodium (Protonix Ec Tab) 40 mg PO DAILY [facility] Last Admin: 11/19/17 08:43 Dose: 40 mg Potassium Chloride (K-Dur 20 Meq Er Tab) 40 meq PO ONCE ONE Stop: 11/19/17 09:01 Vancomycin HCl (Vancocin (Oral/Rectal Use)) 250 mg PO Q8 [facility] PRN Reason: Protocol Last Admin: 11/19/17 08:43 Dose: 250 mg Results - Vital Signs Recent Vital Signs: Last Vital Signs Temp 99.3 F 11/19/17 08:53 Pulse 84 11/19/17 08:53 Resp 20 11/19/17 08:53 BP 96/61 L 11/19/17 08:53 Pulse Ox 99 11/19/17 08:53 - Labs Result Diagrams: 11/19/17 05:30 11/19/17 05:30 Labs: Laboratory Results - last 24 hr 11/17/17 11/17/17 11/18/17 11:15 20:09 20:30 WBC RBC Hgb Hct MCV MCH MCHC RDW Plt Count MPV Neut % (Auto) Lymph % (Auto) [place] % (Auto) Eos % (Auto) Baso % (Auto) Neut # (Auto) Lymph # (Auto) [place] # (Auto) Eos # (Auto) Baso # (Auto) Sodium Potassium Chloride Carbon Dioxide Anion Gap BUN Creatinine Est GFR ( Amer) Est GFR (Non-Af Amer) Random Glucose Calcium Vancomycin Trough < 5.0 L HIV 1&2 Antibody Screen Negative TB Test (QFT) Nil 1.02 TB Test Mitogen - Nil 0.87 TB Test TB - Nil <0.00 TB Test (QFT) Negative 11/19/17 11/19/17 05:30 05:30 WBC 4.3 L RBC 3.70 L Hgb 8.2 L Hct 25.1 L MCV 67.7 L MCH 22.1 L MCHC 32.6 L RDW 20.7 H Plt Count 348 MPV 7.3 Neut % (Auto) 68.0 Lymph % (Auto) 14.5 L [place] % (Auto) 12.0 H Eos % (Auto) 5.1 H Baso % (Auto) 0.4 Neut # (Auto) 2.9 Lymph # (Auto) 0.6 L [place] # (Auto) 0.5 Eos # (Auto) 0.2 Baso # (Auto) 0.0 Sodium 137 Potassium 3.3 L Chloride 109 H Carbon Dioxide 21 L Anion Gap 10 BUN 4 L Creatinine 0.7 Est GFR ( Amer) > 60 Est GFR (Non-Af Amer) > 60 Random Glucose 85 Calcium 7.5 L Vancomycin Trough HIV 1&2 Antibody Screen TB Test (QFT) Nil TB Test Mitogen - Nil TB Test TB - Nil TB Test (QFT)
[2017-11-19] MEDS ORDERED: Potassium Chloride 20 mEq ER Tab PO ONE (09:00)
--- NOTE | 2017-11-19 09:01 | CP.PCM.PN ---
<Sarah Watters - Last Filed: 11/19/17 09:04> Subjective - Date & Time of Evaluation Date of Evaluation: 11/19/17 Time of Evaluation: 08:58 - Subjective Subjective: Gastroenterology Fellow/PGY5 Progress Note Patient notes improving abdominal pain compared to yesterday, pain scale 6/10. Admits to four watery stools yesterday with resolved bloody diarrhea for three days and improving frequency from previous over ten episodes daily. Tolerating clear liquid diet without nausea or vomiting. 12-point review of systems negative except above. Objective - Vital Signs/Intake and Output Vital Signs (last 24 hours): Temp Pulse Resp BP Pulse Ox 99.3 F 84 20 96/61 L 99 11/19/17 08:53 11/19/17 08:53 11/19/17 08:53 11/19/17 08:53 11/19/17 08:53 - Medications Medications: Current Medications Acetaminophen (Tylenol 325mg Tab) 650 mg PO Q6 PRN PRN Reason: Pain, Mild (1-3) Last Admin: 11/17/17 16:06 Dose: 650 mg Acetaminophen (Tylenol 325mg Tab) 650 mg PO Q4 PRN PRN Reason: Fever >100.4 F Last Admin: 11/17/17 20:28 Dose: 650 mg Enoxaparin Sodium (Lovenox) 40 mg SC DAILY [facility] PRN Reason: Protocol Last Admin: 11/19/17 08:40 Dose: 40 mg Ciprofloxacin (Cipro 400mg/200ml Dsw) 400 mg in 200 mls @ 200 mls/hr IVPB Q12 [facility] PRN Reason: Protocol Last Admin: 11/19/17 08:36 Dose: 200 mls/hr Metronidazole (Flagyl 500mg/100ml Ns) 100 mls @ 100 mls/hr IVPB Q8 [facility] PRN Reason: Protocol Last Admin: 11/19/17 08:37 Dose: 100 mls/hr Sodium Chloride (Sodium Chloride 0.9%) 1,000 mls @ 150 mls/hr IV .Q6H40M [facility] Stop: 11/20/17 07:41 Ketorolac Tromethamine (Toradol) 15 mg IVP Q6 PRN PRN Reason: Pain, moderate (4-7) Last Admin: 11/18/17 09:58 Dose: 15 mg Mesalamine (Delzicol Dr) 1,200 mg PO QID [facility] Last Admin: 11/19/17 08:41 Dose: 1,200 mg Morphine Sulfate (Morphine) 1 mg IVP Q6 PRN PRN Reason: Pain, severe (8-10) Last Admin: 11/16/17 15:36 Dose: 1 mg Ondansetron HCl (Zofran Inj) 4 mg IVP Q6 PRN PRN Reason: Nausea/Vomiting Last Admin: 11/18/17 09:58 Dose: 4 mg Pantoprazole Sodium (Protonix Ec Tab) 40 mg PO DAILY [facility] Last Admin: 11/19/17 08:43 Dose: 40 mg Potassium Chloride (K-Dur 20 Meq Er Tab) 40 meq PO ONCE ONE Stop: 11/19/17 09:01 Vancomycin HCl (Vancocin (Oral/Rectal Use)) 250 mg PO Q8 [facility] PRN Reason: Protocol Last Admin: 11/19/17 08:43 Dose: 250 mg - Labs Labs: 11/19/17 05:30 11/19/17 05:30 PT 12.2 Seconds (9.8-13.1) 11/15/17 09:30 INR 1.1 (0.9-1.2) 11/15/17 09:30 APTT 31.3 Seconds (25.6-37.1) 11/15/17 09:30 - Constitutional Appears: Non-toxic, No Acute Distress - Head Exam Head Exam: ATRAUMATIC, NORMOCEPHALIC - Eye Exam Eye Exam: EOMI, PERRL Pupil Exam: PERRL. absent: Miosis, Mydriatic - ENT Exam ENT Exam: Mucous Membranes Moist, Normal Oropharynx - Neck Exam Neck Exam: Full ROM, Normal Inspection - Respiratory Exam Respiratory Exam: Clear to Ausculation Bilateral. absent: Rales, Rhonchi, Wheezes - Cardiovascular Exam Cardiovascular Exam: RRR, +S1, +S2. absent: Gallop, Rubs - GI/Abdominal Exam GI & Abdominal Exam: Soft, Tenderness, Normal Bowel Sounds. absent: Distended, Firm, Guarding, Rigid, Organomegaly - Extremities Exam Extremities Exam: Full ROM, Normal Inspection - Neurological Exam Neurological Exam: Alert, Awake - Psychiatric Exam Psychiatric exam: Normal Affect, Normal Mood - Skin Skin Exam: Dry, Intact, Normal Color, Warm Assessment and Plan - Assessment and Plan (Free Text) Assessment: 37 year old female with PMH of Crohn's ileocolitis and prior HCV s/p treatment( unknown SVR) who presents with abd pain,worsening bloody diarrhea, abdominal pain, subjective fever, and weight loss. Active treatment of enterocolitis on CT A/P with concern for Crohn's flare versus infectious diarrhea. Plan: -on mesalamine 1.2g PO QID -on vanco for Cdiff empiric coverage and Flagl for infectious diarrhea -improving diarrhea frequency and resolved bloody stools -low suspicion for need of prednisone therapy -pending CTE read for worsening abdominal pain that is now improving subjectively -pending HCV viral load -pending fecal calprotectin and TB Gold pending -repeat blood cultures negative to date -pending ECHO with one bottle GPC with likely contamination on initial blood culture -monitor fever curve, Temp 99.3 degrees fahrenheit this morning -advanced to altered GI diet yesterday evening, tolerating clear liquids yesterday -will follow clinical course <Shukri Horan - Last Filed: 11/19/17 09:25> Objective - Vital Signs/Intake and Output Vital Signs (last 24 hours): Temp Pulse Resp BP Pulse Ox 99.3 F 84 20 96/61 L 99 11/19/17 08:53 11/19/17 08:53 11/19/17 08:53 11/19/17 08:53 11/19/17 08:53 - Medications Medications: Current Medications Acetaminophen (Tylenol 325mg Tab) 650 mg PO Q6 PRN PRN Reason: Pain, Mild (1-3) Last Admin: 11/17/17 16:06 Dose: 650 mg Acetaminophen (Tylenol 325mg Tab) 650 mg PO Q4 PRN PRN Reason: Fever >100.4 F Last Admin: 11/17/17 20:28 Dose: 650 mg Enoxaparin Sodium (Lovenox) 40 mg SC DAILY [facility] PRN Reason: Protocol Last Admin: 11/19/17 08:40 Dose: 40 mg Ciprofloxacin (Cipro 400mg/200ml Dsw) 400 mg in 200 mls @ 200 mls/hr IVPB Q12 [facility] PRN Reason: Protocol Last Admin: 11/19/17 08:36 Dose: 200 mls/hr Metronidazole (Flagyl 500mg/100ml Ns) 100 mls @ 100 mls/hr IVPB Q8 [facility] PRN Reason: Protocol Last Admin: 11/19/17 08:37 Dose: 100 mls/hr Sodium Chloride (Sodium Chloride 0.9%) 1,000 mls @ 150 mls/hr IV .Q6H40M [facility] Stop: 11/20/17 07:41 Mesalamine (Delzicol Dr) 1,200 mg PO QID [facility] Last Admin: 11/19/17 08:41 Dose: 1,200 mg Morphine Sulfate (Morphine) 1 mg IVP Q6 PRN PRN Reason: Pain, severe (8-10) Last Admin: 11/16/17 15:36 Dose: 1 mg Ondansetron HCl (Zofran Inj) 4 mg IVP Q6 PRN PRN Reason: Nausea/Vomiting Last Admin: 11/18/17 09:58 Dose: 4 mg Pantoprazole Sodium (Protonix Ec Tab) 40 mg PO DAILY [facility] Last Admin: 11/19/17 08:43 Dose: 40 mg Vancomycin HCl (Vancocin (Oral/Rectal Use)) 250 mg PO Q8 [facility] PRN Reason: Protocol Last Admin: 11/19/17 08:43 Dose: 250 mg - Labs Labs: 11/19/17 05:30 11/19/17 05:30 PT 12.2 Seconds (9.8-13.1) 11/15/17 09:30 INR 1.1 (0.9-1.2) 11/15/17 09:30 APTT 31.3 Seconds (25.6-37.1) 11/15/17 09:30 Attending/Attestation - Attestation I have personally seen and examined this patient.: Yes I have fully participated in the care of the patient.: Yes I have reviewed all pertinent clinical information, including history, physical exam and plan: Yes Notes (Text): 11/19/17 09:20 I have seen and examined patient with GI fellow. No acute events overnight, she is seen resting in bed comfortably. She complains of ongoing mild epigastric abdominal pain, though improved compared to yesterday. She had 2 watery bowel movements this morning, tolerating PO liquids without difficulty. Review of vitals from today are normal. Crohn's ileocolitis history of HCV s/p treatment Abdominal pain, diarrhea - improving - Full liquid diet as tolerated - Await results from CT enterography performed yesterday - Agree with antibiotic therapy, patient ate seafood (lobster/shrimp) prior to symptom onset - Awaiting results of stool studies - Awaiting HCV viral load - Continue with mesalamine therapy - Would avoid using NSAIDs for pain control in patients with inflammatory bowel disease as this may precipitate disease exacerbation - Will continue to monitor patient clinical course
--- NOTE | 2017-11-19 10:02 | CP.PCM.PN ---
Subjective - Date & Time of Evaluation Date of Evaluation: 11/19/17 Time of Evaluation: 10:00 - Subjective Subjective: Patient seen and examined at bedside, states that abdominal pain improving. Had 3 episodes of diarrhea over night. Endorses having an appetite today. Objective - Vital Signs/Intake and Output Vital Signs (last 24 hours): Temp Pulse Resp BP Pulse Ox 99.3 F 84 20 96/61 L 99 11/19/17 08:53 11/19/17 08:53 11/19/17 08:53 11/19/17 08:53 11/19/17 08:53 - Medications Medications: Current Medications Acetaminophen (Tylenol 325mg Tab) 650 mg PO Q6 PRN PRN Reason: Pain, Mild (1-3) Last Admin: 11/17/17 16:06 Dose: 650 mg Acetaminophen (Tylenol 325mg Tab) 650 mg PO Q4 PRN PRN Reason: Fever >100.4 F Last Admin: 11/17/17 20:28 Dose: 650 mg Enoxaparin Sodium (Lovenox) 40 mg SC DAILY [facility] PRN Reason: Protocol Last Admin: 11/19/17 08:40 Dose: 40 mg Ciprofloxacin (Cipro 400mg/200ml Dsw) 400 mg in 200 mls @ 200 mls/hr IVPB Q12 [facility] PRN Reason: Protocol Last Admin: 11/19/17 08:36 Dose: 200 mls/hr Metronidazole (Flagyl 500mg/100ml Ns) 100 mls @ 100 mls/hr IVPB Q8 [facility] PRN Reason: Protocol Last Admin: 11/19/17 08:37 Dose: 100 mls/hr Sodium Chloride (Sodium Chloride 0.9%) 1,000 mls @ 150 mls/hr IV .Q6H40M COUNTS [facility]CLUDE 234 BEDS AT [facility] Stop: 11/20/17 07:41 Last Admin: 11/19/17 09:42 Dose: 150 mls/hr Mesalamine (Delzicol Dr) 1,200 mg PO QID COUNTS [facility]CLUDE 234 BEDS AT [facility] Last Admin: 11/19/17 08:41 Dose: 1,200 mg Morphine Sulfate (Morphine) 1 mg IVP Q6 PRN PRN Reason: Pain, severe (8-10) Last Admin: 11/16/17 15:36 Dose: 1 mg Ondansetron HCl (Zofran Inj) 4 mg IVP Q6 PRN PRN Reason: Nausea/Vomiting Last Admin: 11/18/17 09:58 Dose: 4 mg Pantoprazole Sodium (Protonix Ec Tab) 40 mg PO DAILY [facility] Last Admin: 11/19/17 08:43 Dose: 40 mg Vancomycin HCl (Vancocin (Oral/Rectal Use)) 250 mg PO Q8 [facility] PRN Reason: Protocol Last Admin: 11/19/17 08:43 Dose: 250 mg - Labs Labs: 11/19/17 05:30 11/19/17 05:30 PT 12.2 Seconds (9.8-13.1) 11/15/17 09:30 INR 1.1 (0.9-1.2) 11/15/17 09:30 APTT 31.3 Seconds (25.6-37.1) 11/15/17 09:30 Assessment and Plan - Assessment and Plan (Free Text) Assessment: 37 y/o female w/ pmh of Crohn's admitted for enterocolitis sepsis, and bactermia c/o abdominal pain and diarrhea. Plan: 1)Staph Aureus Bactermia w/ Sepsis -possibly likely 2/2 entercolitis -Positive blood cultures X1 for staph aureus, repeat cultures negative x3 -urine cx negative -echo pending -repeat blood cultures pending -Fever resolved -CT shows enterocolitis -enterography CT results pending -no leukocytosis -normal lactate levels in ED (1.3) -Acetaminophen 650 mg PO for fevers -on Cipro 400 , Metronidazole 500, 1gm Vanco -stool cx no salmonella, shigella, cambylobacter -d/c daptomycin 2) Enterocolitis -Infectious vs. 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
[2017-11-19] MEDS: Sodium Chloride 0.45% 1,000 ML IV SCH ×2 (10:51→16:35)
[2017-11-20] MEDS: metroNIDAZOLE 500mg/100ml NS 100 ML IVPB SCH ×3 (00:36→16:23)
[2017-11-20] MEDS: Vancomycin 500 mg (Oral/Rectal USE) PO SCH ×3 (00:36→16:23)
[2017-11-20] MEDS: Sodium Chloride 0.45% 1,000 ML IV SCH ×3 (00:46→09:06)
--- NOTE | 2017-11-20 07:42 | CP.PCM.PN ---
<Sarah Watters - Last Filed: 11/20/17 09:38> Subjective - Date & Time of Evaluation Date of Evaluation: 11/20/17 Time of Evaluation: 07:39 - Subjective Subjective: Gastroenterology Fellow/PGY6 Progress Note Patient notes episode of epigastric pain after eating mashed potatoes that has resolved this morning. She notes similar episode two days ago after eating mashed potatoes. Tolerating regular diet. Notes four episodes of water diarrhea yesterday and one formed bowel movement last night. 12-point review of systems negative except above. Objective - Vital Signs/Intake and Output Vital Signs (last 24 hours): Temp Pulse Resp BP Pulse Ox 97.9 F 79 20 94/60 L 99 11/20/17 00:46 11/20/17 00:46 11/20/17 00:46 11/20/17 00:46 11/20/17 00:46 - Medications Medications: Current Medications Acetaminophen (Tylenol 325mg Tab) 650 mg PO Q6 PRN PRN Reason: Pain, Mild (1-3) Last Admin: 11/17/17 16:06 Dose: 650 mg Acetaminophen (Tylenol 325mg Tab) 650 mg PO Q4 PRN PRN Reason: Fever >100.4 F Last Admin: 11/17/17 20:28 Dose: 650 mg Enoxaparin Sodium (Lovenox) 40 mg SC DAILY [facility] PRN Reason: Protocol Last Admin: 11/19/17 08:40 Dose: 40 mg Ciprofloxacin (Cipro 400mg/200ml Dsw) 400 mg in 200 mls @ 200 mls/hr IVPB Q12 [facility] PRN Reason: Protocol Last Admin: 11/19/17 21:14 Dose: 200 mls/hr Metronidazole (Flagyl 500mg/100ml Ns) 100 mls @ 100 mls/hr IVPB Q8 [facility] PRN Reason: Protocol Last Admin: 11/20/17 00:36 Dose: 100 mls/hr Sodium Chloride (Sodium Chloride 0.45%) 1,000 mls @ 150 mls/hr IV .Q6H40M [facility] Stop: 11/20/17 10:35 Last Admin: 11/20/17 07:00 Dose: Not Given Mesalamine (Delzicol Dr) 1,200 mg PO QID [facility] Last Admin: 11/19/17 21:15 Dose: 1,200 mg Morphine Sulfate (Morphine) 1 mg IVP Q6 PRN PRN Reason: Pain, severe (8-10) Last Admin: 11/16/17 15:36 Dose: 1 mg Ondansetron HCl (Zofran Inj) 4 mg IVP Q6 PRN PRN Reason: Nausea/Vomiting Last Admin: 11/18/17 09:58 Dose: 4 mg Pantoprazole Sodium (Protonix Ec Tab) 40 mg PO DAILY [facility] Last Admin: 11/19/17 08:43 Dose: 40 mg Vancomycin HCl (Vancocin (Oral/Rectal Use)) 250 mg PO Q8 [facility] PRN Reason: Protocol Last Admin: 11/20/17 00:36 Dose: 250 mg - Labs Labs: 11/19/17 05:30 11/19/17 05:30 PT 12.2 Seconds (9.8-13.1) 11/15/17 09:30 INR 1.1 (0.9-1.2) 11/15/17 09:30 APTT 31.3 Seconds (25.6-37.1) 11/15/17 09:30 - Constitutional Appears: Non-toxic, No Acute Distress - Head Exam Head Exam: ATRAUMATIC, NORMOCEPHALIC - Eye Exam Eye Exam: EOMI, PERRL Pupil Exam: PERRL. absent: Miosis, Mydriatic - ENT Exam ENT Exam: Mucous Membranes Moist, Normal Oropharynx - Neck Exam Neck Exam: Full ROM, Normal Inspection - Respiratory Exam Respiratory Exam: Clear to Ausculation Bilateral. absent: Rales, Rhonchi, Wheezes - Cardiovascular Exam Cardiovascular Exam: RRR, +S1, +S2. absent: Gallop, Rubs - GI/Abdominal Exam GI & Abdominal Exam: Soft, Normal Bowel Sounds. absent: Distended, Firm, Guarding, Rigid, Tenderness, Mass, Organomegaly, Rebound - Extremities Exam Extremities Exam: Full ROM, Normal Inspection. absent: Pedal Edema - Neurological Exam Neurological Exam: Alert, Awake - Psychiatric Exam Psychiatric exam: Normal Affect, Normal Mood - Skin Skin Exam: Dry, Intact, Normal Color, Warm Assessment and Plan - Assessment and Plan (Free Text) Assessment: 37 year old female with PMH of Crohn's ileocolitis and prior HCV s/p treatment( unknown SVR) who presents with abd pain,worsening bloody diarrhea, abdominal pain, subjective fever, and weight loss. Active treatment of enterocolitis on CT A/P with concern for Crohn's ileocolits flare versus infectious diarrhea. Plan: -on mesalamine 1.2g PO QID -on vanco for Cdiff empiric coverage and cipro/Flagyl for infectious diarrhea -close monitoring of red palms or further signs of allergic reaction -pending CTE read -HCV viral load not detected, TB Gold negative -pending fecal calprotectin -repeat blood cultures negative to date -pending ECHO with one bottle GPC with likely contamination on initial blood culture -continue diarrhea management diet as tolerated with avoidance of food triggers to pain and diarrhea -will follow clinical course <Shukri Horan - Last Filed: 11/20/17 09:47> Objective - Vital Signs/Intake and Output Vital Signs (last 24 hours): Temp Pulse Resp BP Pulse Ox 98.8 F 75 19 97/55 L 97 11/20/17 08:11 11/20/17 08:11 11/20/17 08:11 11/20/17 08:11 11/20/17 08:11 - Medications Medications: Current Medications Acetaminophen (Tylenol 325mg Tab) 650 mg PO Q6 PRN PRN Reason: Pain, Mild (1-3) Last Admin: 11/17/17 16:06 Dose: 650 mg Acetaminophen (Tylenol 325mg Tab) 650 mg PO Q4 PRN PRN Reason: Fever >100.4 F Last Admin: 11/17/17 20:28 Dose: 650 mg Enoxaparin Sodium (Lovenox) 40 mg SC DAILY [facility] PRN Reason: Protocol Last Admin: 11/20/17 09:02 Dose: 40 mg Ciprofloxacin (Cipro 400mg/200ml Dsw) 400 mg in 200 mls @ 200 mls/hr IVPB Q12 [facility] PRN Reason: Protocol Last Admin: 11/20/17 09:01 Dose: 200 mls/hr Metronidazole (Flagyl 500mg/100ml Ns) 100 mls @ 100 mls/hr IVPB Q8 [facility] PRN Reason: Protocol Last Admin: 11/20/17 09:01 Dose: 100 mls/hr Sodium Chloride (Sodium Chloride 0.45%) 1,000 mls @ 150 mls/hr IV .Q6H40M [facility] Stop: 11/20/17 10:35 Last Admin: 11/20/17 09:06 Dose: 150 mls/hr Mesalamine (Delzicol Dr) 1,200 mg PO QID [facility] Last Admin: 11/20/17 09:02 Dose: 1,200 mg Morphine Sulfate (Morphine) 1 mg IVP Q6 PRN PRN Reason: Pain, severe (8-10) Last Admin: 11/16/17 15:36 Dose: 1 mg Ondansetron HCl (Zofran Inj) 4 mg IVP Q6 PRN PRN Reason: Nausea/Vomiting Last Admin: 11/18/17 09:58 Dose: 4 mg Pantoprazole Sodium (Protonix Ec Tab) 40 mg PO DAILY [facility] Last Admin: 11/20/17 09:03 Dose: 40 mg Vancomycin HCl (Vancocin (Oral/Rectal Use)) 250 mg PO Q8 [facility] PRN Reason: Protocol Last Admin: 11/20/17 09:03 Dose: 250 mg - Labs Labs: 11/19/17 05:30 11/20/17 08:30 PT 12.2 Seconds (9.8-13.1) 11/15/17 09:30 INR 1.1 (0.9-1.2) 11/15/17 09:30 APTT 31.3 Seconds (25.6-37.1) 11/15/17 09:30 Attending/Attestation - Attestation I have personally seen and examined this patient.: Yes I have fully participated in the care of the patient.: Yes I have reviewed all pertinent clinical information, including history, physical exam and plan: Yes Notes (Text): 11/20/17 09:44 I have seen and examined patient with GI fellow. No acute events overnight. She reports ongoing abdominal pain in epigastric region which is worse following meal consumption. She also reports 4-5 loose bowel movements following dinner yesterday. She denies nausea, vomiting, fever/chills. Review of vitals from today are normal. Crohn's ileocolitis History of HCV, viral load currently undetectable Abdominal pain, diarrhea - Continue with mesalamine therapy - Awaiting results of CT enterography - Continue with antibiotic therapy, follow up stool studies - Diet as tolerated - Continue to monitor patient clinical course
--- NOTE | 2017-11-20 08:20 | CP.PCM.PN ---
Subjective - Date & Time of Evaluation Date of Evaluation: 11/20/17 Time of Evaluation: 08:20 - Subjective Subjective: pt seen and examined at bedside. No acute events overnight. Afebrile. Abdominal pain improving but not resolved. 4 episodes of diarrhea last night. Tolerating PO diet but with some difficulty as solid foods cause pain. No other complaints. Objective - Vital Signs/Intake and Output Vital Signs (last 24 hours): Temp Pulse Resp BP Pulse Ox 98.8 F 75 19 97/55 L 97 11/20/17 08:11 11/20/17 08:11 11/20/17 08:11 11/20/17 08:11 11/20/17 08:11 - Medications Medications: Current Medications Acetaminophen (Tylenol 325mg Tab) 650 mg PO Q6 PRN PRN Reason: Pain, Mild (1-3) Last Admin: 11/17/17 16:06 Dose: 650 mg Acetaminophen (Tylenol 325mg Tab) 650 mg PO Q4 PRN PRN Reason: Fever >100.4 F Last Admin: 11/17/17 20:28 Dose: 650 mg Enoxaparin Sodium (Lovenox) 40 mg SC DAILY [facility] PRN Reason: Protocol Last Admin: 11/19/17 08:40 Dose: 40 mg Ciprofloxacin (Cipro 400mg/200ml Dsw) 400 mg in 200 mls @ 200 mls/hr IVPB Q12 [facility] PRN Reason: Protocol Last Admin: 11/19/17 21:14 Dose: 200 mls/hr Metronidazole (Flagyl 500mg/100ml Ns) 100 mls @ 100 mls/hr IVPB Q8 [facility] PRN Reason: Protocol Last Admin: 11/20/17 00:36 Dose: 100 mls/hr Sodium Chloride (Sodium Chloride 0.45%) 1,000 mls @ 150 mls/hr IV .[id number] [facility] Stop: 11/20/17 10:35 Last Admin: 11/20/17 07:00 Dose: Not Given Mesalamine (Delzicol Dr) 1,200 mg PO QID [facility] Last Admin: 11/19/17 21:15 Dose: 1,200 mg Morphine Sulfate (Morphine) 1 mg IVP Q6 PRN PRN Reason: Pain, severe (8-10) Last Admin: 11/16/17 15:36 Dose: 1 mg Ondansetron HCl (Zofran Inj) 4 mg IVP Q6 PRN PRN Reason: Nausea/Vomiting Last Admin: 11/18/17 09:58 Dose: 4 mg Pantoprazole Sodium (Protonix Ec Tab) 40 mg PO DAILY [facility] Last Admin: 11/19/17 08:43 Dose: 40 mg Vancomycin HCl (Vancocin (Oral/Rectal Use)) 250 mg PO Q8 [facility] PRN Reason: Protocol Last Admin: 11/20/17 00:36 Dose: 250 mg - Labs Labs: 11/19/17 05:30 11/19/17 05:30 PT 12.2 Seconds (9.8-13.1) 11/15/17 09:30 INR 1.1 (0.9-1.2) 11/15/17 09:30 APTT 31.3 Seconds (25.6-37.1) 11/15/17 09:30 - Constitutional Appears: Non-toxic, No Acute Distress - Head Exam Head Exam: ATRAUMATIC, NORMOCEPHALIC - Eye Exam Eye Exam: EOMI. absent: Conjunctival injection, Scleral icterus Pupil Exam: PERRL - ENT Exam ENT Exam: Mucous Membranes Moist - Respiratory Exam Respiratory Exam: Clear to Ausculation Bilateral, NORMAL BREATHING PATTERN. absent: Decreased Breath Sounds, Rales, Rhonchi, Wheezes - Cardiovascular Exam Cardiovascular Exam: REGULAR RHYTHM, RRR, +S1, +S2. absent: Tachycardia, JVD, Murmur - GI/Abdominal Exam GI & Abdominal Exam: Soft, Normal Bowel Sounds. absent: Distended, Firm, Guarding, Rigid, Tenderness, Diminished Bowel Sounds, Hernia - Extremities Exam Extremities Exam: Full ROM, Normal Capillary Refill. absent: Calf Tenderness - Neurological Exam Neurological Exam: Alert, Awake, CN II-XII Intact, Normal Gait, Oriented x3 - Skin Skin Exam: Dry, Intact, Warm. absent: Rash Assessment and Plan - Assessment and Plan (Free Text) Assessment: 37 y/o female w/ pmh of Crohn's admitted for enterocolitis sepsis, and bactermia c/o abdominal pain and diarrhea. Plan: 1)Staph Aureus Bactermia w/ Sepsis -possibly likely 2/2 entercolitis -Positive blood cultures X1 for staph aureus, repeat cultures negative x3 -echo pending -repeat blood cultures pending -Fever resolved -CT shows enterocolitis -enterography CT: bowel inflammation consistent with infectious/inflamm etiology (VRAD), will follow up official read -Acetaminophen 650 mg PO for fevers -on Cipro 400 , Metronidazole 500, 1gm Vanco -stool cx 2) Enterocolitis -Infectious vs. inflammatory -abdominal pain, improving -c.diff toxin negative, antigen + -Toradol 15mg IVP for pain mgmt -GI following 3) Hypokalemia -resolved -likely secondary to chronic diarrhea -K+ is 3.7 -monitoring 4) Crohn's disease -now w/ non-bloody diarrhea -C/w Mesalamine 1200mg PO QID -f/u GI recs 5)Microcytic Anemia -hgb 7.7 --> trasnfusion -->8.3 -->9-->8.2 -s/p 1 unit PRBC transfusion -will follow cbc -PT, INR, aPTT wnl 6)Rash -improved -seen and managed by outpatient conservation coordinator -will monitor -JESSY negative 7) Amenorrhea -LMP September 25, 2017 -s/p tubal ligation -being assessed by OBGYN outpatient 8)Diet -Regular diet 9) DVT Prophylaxis -SCDs -Lovenonx 40 SC
[2017-11-20] MEDS: Ciprofloxacin 400mg/200ml D5W 400 MG/200 ML BAG IVPB SCH ×2 (09:01→21:14)
[2017-11-20] MEDS: Enoxaparin 40 mg Syringe SC SCH (09:02)
[2017-11-20] MEDS: Pantoprazole 40 mg EC Tab PO SCH (09:03)
[2017-11-20 09:04] LABS: BLOOD UREA NITROGEN 3 mg/dl (7-17); CALCIUM 8.1 mg/dL (8.4-10.2); GFR AFRICAN-AMERICAN > 60; GFR NON-AFRICAN AMERICAN > 60
[2017-11-21] MEDS: metroNIDAZOLE 500mg/100ml NS 100 ML IVPB SCH ×3 (00:24→16:35)
[2017-11-21] MEDS: Vancomycin 500 mg (Oral/Rectal USE) PO SCH ×3 (00:24→16:39)
--- NOTE | 2017-11-21 09:03 | CP.PCM.PN ---
Subjective - Date & Time of Evaluation Date of Evaluation: 11/21/17 Time of Evaluation: 07:30 - Subjective Subjective: Pt is seen and examined by bed side. Pt is laying on bed comfortable. She had a fever yesterday at 10:40pm and she decided to discontinue the IV abx, because she think its harmful for her kidneys and her body cant take more medication. Pt state she feel better today and have no complain except that she dont want abx anymore. Pt denies Nausea, vomiting, headache, chest pain, SOB, abdominal pain, diarrhea, dysuria, polyuria. Objective - Vital Signs/Intake and Output Vital Signs (last 24 hours): Temp Pulse Resp BP Pulse Ox 99.9 F H 83 18 95/58 L 98 11/21/17 08:56 11/21/17 08:56 11/21/17 08:56 11/21/17 08:56 11/21/17 08:56 - Medications Medications: Current Medications Acetaminophen (Tylenol 325mg Tab) 650 mg PO Q6 PRN PRN Reason: Pain, Mild (1-3) Last Admin: 11/17/17 16:06 Dose: 650 mg Acetaminophen (Tylenol 325mg Tab) 650 mg PO Q4 PRN PRN Reason: Fever >100.4 F Last Admin: 11/17/17 20:28 Dose: 650 mg Enoxaparin Sodium (Lovenox) 40 mg SC DAILY [facility] PRN Reason: Protocol Last Admin: 11/20/17 09:02 Dose: 40 mg Metronidazole (Flagyl 500mg/100ml Ns) 100 mls @ 100 mls/hr IVPB Q8 [facility] PRN Reason: Protocol Last Admin: 11/21/17 00:24 Dose: Not Given Mesalamine (Delzicol Dr) 1,200 mg PO QID [facility] Last Admin: 11/20/17 21:14 Dose: 1,200 mg Morphine Sulfate (Morphine) 1 mg IVP Q6 PRN PRN Reason: Pain, severe (8-10) Last Admin: 11/16/17 15:36 Dose: 1 mg Ondansetron HCl (Zofran Inj) 4 mg IVP Q6 PRN PRN Reason: Nausea/Vomiting Last Admin: 11/18/17 09:58 Dose: 4 mg Pantoprazole Sodium (Protonix Ec Tab) 40 mg PO DAILY [facility] Last Admin: 11/20/17 09:03 Dose: 40 mg Vancomycin HCl (Vancocin (Oral/Rectal Use)) 250 mg PO Q8 [facility] PRN Reason: Protocol Last Admin: 11/21/17 00:24 Dose: Not Given - Labs Labs: 11/19/17 05:30 11/20/17 08:30 PT 12.2 Seconds (9.8-13.1) 11/15/17 09:30 INR 1.1 (0.9-1.2) 11/15/17 09:30 APTT 31.3 Seconds (25.6-37.1) 11/15/17 09:30 - Constitutional Appears: Well, Non-toxic, No Acute Distress - Head Exam Head Exam: ATRAUMATIC, NORMAL INSPECTION, NORMOCEPHALIC - Eye Exam Eye Exam: EOMI, Normal appearance, PERRL Pupil Exam: NORMAL ACCOMODATION, PERRL - ENT Exam ENT Exam: Mucous Membranes Moist, Normal Exam - Neck Exam Neck Exam: Full ROM, Normal Inspection - Respiratory Exam Respiratory Exam: Clear to Ausculation Bilateral, NORMAL BREATHING PATTERN - Cardiovascular Exam Cardiovascular Exam: REGULAR RHYTHM, +S1, +S2 - GI/Abdominal Exam GI & Abdominal Exam: Soft, Tenderness (mild epigastric tenderness), Normal Bowel Sounds - Extremities Exam Extremities Exam: Full ROM, Normal Capillary Refill, Normal Inspection - Back Exam Back Exam: NORMAL INSPECTION - Neurological Exam Neurological Exam: Alert, Awake, Oriented x3 - Psychiatric Exam Psychiatric exam: Normal Affect, Normal Mood - Skin Skin Exam: Dry, Intact, Normal Color, Warm Assessment and Plan - Assessment and Plan (Free Text) Assessment: 37 yo f with PMH of Crohns admitted for enterocolitis sepsis, and bactermia. Plan: Staph Aureus Bactermia with Sepsis possibly likely due entercolitis Positive blood cultures X1 for staph aureus, repeat cultures negative x3 enterography CT: bowel inflammation consistent with infectious/inflamm etiology (VRAD), will follow up official read Discontinue Cipro and Vanco IV Start Vanco PO Scheduled Colonoscopy and endoscopy 11/22/17 Echo pending Repeat blood cultures pending f/u CBC, BMP Enterocolitis Infectious vs. inflammatory abdominal pain, improving c.diff toxin negative, antigen + Toradol 15mg IVP for pain mgmt GI recommend Colonoscopy/endoscopy tomorrow ( 11/22/17) Crohn's disease Now with non-bloody diarrhea continue Mesalamine 1200mg PO QID follow up GI recommendation Microcytic Anemia Hgb is decreasing Follow up cbc, bmp Diet Regular diet DVT Prophylaxis SCDs Lovenonx 40 SC
--- NOTE | 2017-11-21 09:13 | CP.PCM.PN ---
<Mariluz Browning - Last Filed: 11/21/17 14:11> Subjective - Date & Time of Evaluation Date of Evaluation: 11/21/17 Time of Evaluation: 07:00 - Subjective Subjective: PGY5 GI Follow-up Pt seen and examined bedside Denies any abd pain +x3 loose BM yesterday + low grade fever ROS; 12 point ROS conducted, neg other than above Objective - Vital Signs/Intake and Output Vital Signs (last 24 hours): Temp Pulse Resp BP Pulse Ox 99.9 F H 83 18 95/58 L 98 11/21/17 08:56 11/21/17 08:56 11/21/17 08:56 11/21/17 08:56 11/21/17 08:56 - Medications Medications: Current Medications Acetaminophen (Tylenol 325mg Tab) 650 mg PO Q6 PRN PRN Reason: Pain, Mild (1-3) Last Admin: 11/17/17 16:06 Dose: 650 mg Acetaminophen (Tylenol 325mg Tab) 650 mg PO Q4 PRN PRN Reason: Fever >100.4 F Last Admin: 11/17/17 20:28 Dose: 650 mg Enoxaparin Sodium (Lovenox) 40 mg SC DAILY [facility] PRN Reason: Protocol Last Admin: 11/20/17 09:02 Dose: 40 mg Metronidazole (Flagyl 500mg/100ml Ns) 100 mls @ 100 mls/hr IVPB Q8 [facility] PRN Reason: Protocol Last Admin: 11/21/17 00:24 Dose: Not Given Mesalamine (Delzicol Dr) 1,200 mg PO QID [facility] Last Admin: 11/20/17 21:14 Dose: 1,200 mg Morphine Sulfate (Morphine) 1 mg IVP Q6 PRN PRN Reason: Pain, severe (8-10) Last Admin: 11/16/17 15:36 Dose: 1 mg Ondansetron HCl (Zofran Inj) 4 mg IVP Q6 PRN PRN Reason: Nausea/Vomiting Last Admin: 11/18/17 09:58 Dose: 4 mg Pantoprazole Sodium (Protonix Ec Tab) 40 mg PO DAILY [facility] Last Admin: 11/20/17 09:03 Dose: 40 mg Vancomycin HCl (Vancocin (Oral/Rectal Use)) 250 mg PO Q8 [facility] PRN Reason: Protocol Last Admin: 11/21/17 00:24 Dose: Not Given - Labs Labs: 11/19/17 05:30 11/20/17 08:30 PT 12.2 Seconds (9.8-13.1) 11/15/17 09:30 INR 1.1 (0.9-1.2) 11/15/17 09:30 APTT 31.3 Seconds (25.6-37.1) 11/15/17 09:30 - Constitutional Appears: Well, No Acute Distress - Head Exam Head Exam: ATRAUMATIC, NORMOCEPHALIC - Eye Exam Eye Exam: Normal appearance - ENT Exam ENT Exam: Mucous Membranes Moist, Normal Exam - Neck Exam Neck Exam: Normal Inspection - Respiratory Exam Respiratory Exam: Clear to Ausculation Bilateral, NORMAL BREATHING PATTERN. absent: Rales, Rhonchi, Wheezes, Respiratory Distress - Cardiovascular Exam Cardiovascular Exam: REGULAR RHYTHM, +S1, +S2 - GI/Abdominal Exam GI & Abdominal Exam: Soft, Normal Bowel Sounds. absent: Firm, Guarding, Rigid, Tenderness, Hyperactive Bowel Sounds, Organomegaly - Extremities Exam Extremities Exam: absent: Joint Swelling, Pedal Edema - Neurological Exam Neurological Exam: Alert, Awake, Oriented x3 - Psychiatric Exam Psychiatric exam: Normal Affect, Normal Mood - Skin Skin Exam: Dry, Intact, Normal Color, Warm Assessment and Plan - Assessment and Plan (Free Text) Assessment: 37 year old female with PMH of Crohn's ileocolitis and prior HCV s/p treatment( unknown SVR) who presents with abd pain,worsening bloody diarrhea, abdominal pain, subjective fever, and weight loss. Active treatment of enterocolitis on CT A/P with concern for Crohn's ileocolits flare versus infectious diarrhea. Plan: -on mesalamine 1.2g PO QID -on vanco for Cdiff empiric coverage and cipro/Flagyl for infectious diarrhea -close monitoring of red palms or further signs of allergic reaction -pending CTE read, VRAD reading shows non-specefic colitis and enteritis throughout the GI tract, similiar to prior imaging -HCV viral load not detected, TB Gold negative -pending fecal calprotectin -repeat blood cultures negative to date -pending ECHO with one bottle GPC with likely contamination on initial blood culture -continue diarrhea management diet as tolerated with avoidance of food triggers to pain and diarrhea -would like ID input on fevers, which may be 2/2 IBD -will schedule for EGD and colonoscopy for tomorrow -clears for now -golytly and dulcolax today, NPO after midnight D/W Dr. Cason <Keith Cason - Last Filed: 11/22/17 10:03> Objective - Vital Signs/Intake and Output Vital Signs (last 24 hours): Temp Pulse Resp BP Pulse Ox 98.9 F 71 18 92/56 L 97 11/22/17 08:34 11/22/17 08:34 11/22/17 08:34 11/22/17 08:34 11/22/17 08:34 - Medications Medications: Current Medications Acetaminophen (Tylenol 325mg Tab) 650 mg PO Q6 PRN PRN Reason: Pain, Mild (1-3) Last Admin: 11/17/17 16:06 Dose: 650 mg Acetaminophen (Tylenol 325mg Tab) 650 mg PO Q4 PRN PRN Reason: Fever >100.4 F Last Admin: 11/17/17 20:28 Dose: 650 mg Enoxaparin Sodium (Lovenox) 40 mg SC DAILY [facility] PRN Reason: Protocol Last Admin: 11/22/17 09:59 Dose: Not Given Metronidazole (Flagyl 500mg/100ml Ns) 100 mls @ 100 mls/hr IVPB Q8 [facility] PRN Reason: Protocol Last Admin: 11/22/17 08:23 Dose: Not Given Sodium Chloride (Sodium Chloride 0.9%) 1,000 mls @ 75 mls/hr IV .[id number] [facility] Stop: 11/23/17 09:48 Last Admin: 11/22/17 09:58 Dose: 75 mls/hr Mesalamine (Delzicol Dr) 1,200 mg PO QID [facility] Last Admin: 11/22/17 08:23 Dose: Not Given Ondansetron HCl (Zofran Inj) 4 mg IVP Q6 PRN PRN Reason: Nausea/Vomiting Last Admin: 11/18/17 09:58 Dose: 4 mg Pantoprazole Sodium (Protonix Ec Tab) 40 mg PO DAILY [facility] Last Admin: 11/22/17 08:23 Dose: Not Given Vancomycin HCl (Vancocin (Oral/Rectal Use)) 250 mg PO Q8 [facility] PRN Reason: Protocol Last Admin: 11/22/17 08:24 Dose: Not Given - Labs Labs: 11/22/17 05:50 11/22/17 05:50 PT 13.6 Seconds (9.8-13.1) H 11/22/17 08:51 INR 1.2 (0.9-1.2) 11/22/17 08:51 APTT 31.3 Seconds (25.6-37.1) 11/15/17 09:30 Attending/Attestation - Attestation I have personally seen and examined this patient.: Yes I have fully participated in the care of the patient.: Yes I have reviewed all pertinent clinical information, including history, physical exam and plan: Yes Notes (Text): 11/22/17 10:02 This is a 37 year old female with PMH of Crohn's ileocolitis and prior HCV s/p treatment(unknown SVR) who presents with abd pain,worsening bloody diarrhea, abdominal pain, subjective fever, and weight loss. Active treatment of enterocolitis on CT A/P with concern for Crohn's ileocolits flare versus infectious diarrhea on mesalamine 1.2g PO QID. Discussed with ID to on vanco for Cdiff empiric coverage and flagyl. Scheduled for repeat Colonoscopy in am to assess endoscopic mucosal involvement and biopsies and cultures from the lumen. Clear liquid diet and npo past midnight
[2017-11-21] MEDS: Enoxaparin 40 mg Syringe SC SCH ×2 (09:42→09:45)
[2017-11-21] MEDS: Pantoprazole 40 mg EC Tab PO SCH (09:43)
[2017-11-21] MEDS ORDERED: Bisacodyl 5mg EC Tab PO ONE (12:00)
--- NOTE | 2017-11-21 12:14 | CARD ---
APPROVED REPORT Date of service: 11/17/2017 EXAM: Two-dimensional and M-mode echocardiogram with Doppler and color Doppler. Other Information Quality : GoodRhythm : Tachycardia INDICATION Infection:Subacute bacterial endocarditis 2D DIMENSIONS IVSd0.97 (0.7-1.1cm)LVDd3.68 (3.9-5.9cm) LVOT Diameter1.91 (1.8-2.4cm)PWd0.88 (0.7-1.1cm) IVSs1.32 (0.8-1.2cm)LVDs2.66 (2.5-4.0cm) FS (%) 27.8 %PWs1.40 (0.8-1.2cm) M-Mode DIMENSIONS Left Atrium (MM)2.96 (2.5-4.0cm)IVSd0.91 (0.7-1.1cm) Aortic Root2.77 (2.2-3.7cm)LVDd4.66 (4.0-5.6cm) Aortic Cusp Exc.2.27 (1.5-2.0cm)PWd0.74 (0.7-1.1cm) IVSs1.29 cmFS (%) 28 % LVDs3.35 (2.0-3.8cm)PWs0.86 cm Aortic Valve AoV Peak Dppqylvp412.6cm/sAoV VTI20.3cmAO Peak GR.9mmHg LVOT Peak Glouxqlg943.5cm/sLVOT VTI19.90cmAO Mean GR.5mmHg MILE (VMAX)2.16kb5BGW (VTI)1.99cm2 Mitral Valve MV E Tjgjbknn98.8cm/sMV DECEL ZCMQ174hwSV A Obgwkbms71.8cm/s MV HBQ07cmP/A ratio0.9MVA (PHT)3.57cm2 TDI Lateral E' Peak V17.76cm/sMedial E' Peak V11.57cm/sE/Lateral E'3.7 E/Medial E'5.7 Pulmonary Valve PV Peak Lzbeujld592.0cm/s LEFT VENTRICLE The left ventricle is normal size. There is normal left ventricular wall thickness. The left ventricular function is normal. The left ventricular ejection fraction is within the normal range. The Ejection Fraction is 60-65%. There is normal LV segmental wall motion. Transmitral Doppler flow pattern is Grade I-abnormal relaxation pattern. RIGHT VENTRICLE The right ventricle is normal size. There is normal right ventricular wall thickness. The right ventricular systolic function is normal. ATRIA The left atrium size is normal. The right atrium size is normal. The interatrial septum is intact with no evidence for an atrial septal defect. AORTIC VALVE The aortic valve is normal in structure. No aortic regurgitation is present. There is no aortic valvular stenosis. There is no aortic,mitral,tricuspid or pulmonic valvular vegetation. MITRAL VALVE The mitral valve is normal in structure. There is no mitral valve stenosis. There is no mitral valve regurgitation noted. TRICUSPID VALVE The tricuspid valve is normal in structure. There is trace tricuspid regurgitation. PULMONIC VALVE The pulmonic valve is not well visualized. There is no pulmonic valvular regurgitation. GREAT VESSELS The aortic root is normal in size. The IVC is normal in size and collapses >50% with inspiration. PERICARDIAL EFFUSION The pericardium appears normal. <Conclusion> The left ventricular function is normal. The left ventricular ejection fraction is within the normal range. The Ejection Fraction is 60-65%. Transmitral Doppler flow pattern is Grade I-abnormal relaxation pattern. There is no aortic,mitral,tricuspid or pulmonic valvular vegetation. There is trace tricuspid regurgitation.
--- NOTE | 2017-11-21 12:28 | CP.PCM.PN ---
Subjective - Date & Time of Evaluation Date of Evaluation: 11/21/17 Time of Evaluation: 12:28 - Subjective Subjective: ID Note- Pt. seen and examined with FP resident today. pt. explains she feels betetr today and has only had 2 bouts of diarrhea so far and no nausea. she explains, however , that last night after IV cipro she developed fever and red palms and chest pain and felt like allergic response. Her cipro has been d/c by GI fellow since then. she states her red palms is resolving and she feels fine now. She also explains she is having EGD/colonoscopy tomm. Objective - Vital Signs/Intake and Output Vital Signs (last 24 hours): Temp Pulse Resp BP Pulse Ox 99.9 F H 83 18 95/58 L 98 11/21/17 08:56 11/21/17 08:56 11/21/17 08:56 11/21/17 08:56 11/21/17 08:56 - Medications Medications: Current Medications Acetaminophen (Tylenol 325mg Tab) 650 mg PO Q6 PRN PRN Reason: Pain, Mild (1-3) Last Admin: 11/17/17 16:06 Dose: 650 mg Acetaminophen (Tylenol 325mg Tab) 650 mg PO Q4 PRN PRN Reason: Fever >100.4 F Last Admin: 11/17/17 20:28 Dose: 650 mg Enoxaparin Sodium (Lovenox) 40 mg SC DAILY [facility] PRN Reason: Protocol Metronidazole (Flagyl 500mg/100ml Ns) 100 mls @ 100 mls/hr IVPB Q8 [facility] PRN Reason: Protocol Last Admin: 11/21/17 09:45 Dose: Not Given Mesalamine (Delzicol Dr) 1,200 mg PO QID [facility] Last Admin: 11/21/17 09:42 Dose: 1,200 mg Morphine Sulfate (Morphine) 1 mg IVP Q6 PRN PRN Reason: Pain, severe (8-10) Last Admin: 11/16/17 15:36 Dose: 1 mg Ondansetron HCl (Zofran Inj) 4 mg IVP Q6 PRN PRN Reason: Nausea/Vomiting Last Admin: 11/18/17 09:58 Dose: 4 mg Pantoprazole Sodium (Protonix Ec Tab) 40 mg PO DAILY [facility] Last Admin: 11/21/17 09:43 Dose: 40 mg Polyethylene Glycol/Electrolytes (Golytely) 4,000 ml PO ONCE ONE Stop: 11/21/17 13:01 Vancomycin HCl (Vancocin (Oral/Rectal Use)) 250 mg PO Q8 [facility] PRN Reason: Protocol Last Admin: 11/21/17 09:45 Dose: Not Given - Labs Labs: - Additional Findings Additional findings: Constitutional Appears: No Acute Distress - Head Exam Head Exam: ATRAUMATIC - Eye Exam Eye Exam: EOMI, PERRL - ENT Exam ENT Exam: Normal Oropharynx - Neck Exam Neck exam: Positive for: Full Rom - Respiratory Exam Respiratory Exam: Clear to Auscultation Bilateral, NORMAL BREATHING PATTERN - Cardiovascular Exam Cardiovascular Exam: RRR, +S1, +S2 - GI/Abdominal Exam GI & Abdominal Exam: Normal Bowel Sounds, Soft Additional comments: soft, NT, ND - Extremities Exam Extremities exam: Positive for: normal inspection no erythema of the palms seen , has tiny red ? dots on b/l wrist only, not raised, not pruritic - Neurological Exam Neurological exam: Alert, Oriented x 3 Laboratory Results - last 72 hr 11/16/17 11/17/17 11/18/17 09:48 11:15 17:55 WBC RBC Hgb Hct MCV MCH MCHC RDW Plt Count MPV Neut % (Auto) Lymph % (Auto) Ocean % (Auto) Eos % (Auto) Baso % (Auto) Neut # (Auto) Lymph # (Auto) Ocean # (Auto) Eos # (Auto) Baso # (Auto) Sodium Potassium Chloride Carbon Dioxide Anion Gap BUN Creatinine Est GFR ( Amer) Est GFR (Non-Af Amer) Random Glucose Calcium Vancomycin Trough C. difficile Tox B Gene Hepatitis C Antibody Reactive Hep C Ab Signal/Cutoff Hepatitis C RNA <15 not detected HCV RNA Quant (PCR) <1.18 not detected TB Test (QFT) Nil 1.02 TB Test Mitogen - Nil 0.87 TB Test TB - Nil <0.00 TB Test (QFT) Negative 11/18/17 11/18/17 11/19/17 17:55 20:30 05:30 WBC 4.3 L RBC 3.70 L Hgb 8.2 L Hct 25.1 L MCV 67.7 L MCH 22.1 L MCHC 32.6 L RDW 20.7 H Plt Count 348 MPV 7.3 Neut % (Auto) 68.0 Lymph % (Auto) 14.5 L Ocean % (Auto) 12.0 H Eos % (Auto) 5.1 H Baso % (Auto) 0.4 Neut # (Auto) 2.9 Lymph # (Auto) 0.6 L Ocean # (Auto) 0.5 Eos # (Auto) 0.2 Baso # (Auto) 0.0 Sodium Potassium Chloride Carbon Dioxide Anion Gap BUN Creatinine Est GFR ( Amer) Est GFR (Non-Af Amer) Random Glucose Calcium Vancomycin Trough < 5.0 L C. difficile Tox B Gene Hepatitis C Antibody Reactive H Hep C Ab Signal/Cutoff 25.3 H Hepatitis C RNA HCV RNA Quant (PCR) TB Test (QFT) Nil TB Test Mitogen - Nil TB Test TB - Nil TB Test (QFT) 11/19/17 11/19/17 11/20/17 05:30 15:14 08:30 WBC RBC Hgb Hct MCV MCH MCHC RDW Plt Count MPV Neut % (Auto) Lymph % (Auto) Ocean % (Auto) Eos % (Auto) Baso % (Auto) Neut # (Auto) Lymph # (Auto) Ocean # (Auto) Eos # (Auto) Baso # (Auto) Sodium 137 136 Potassium 3.3 L 3.7 Chloride 109 H 107 Carbon Dioxide 21 L 23 Anion Gap 10 10 BUN 4 L 3 L Creatinine 0.7 0.6 L Est GFR ( Amer) > 60 > 60 Est GFR (Non-Af Amer) > 60 > 60 Random Glucose 85 91 Calcium 7.5 L 8.1 L Vancomycin Trough C. difficile Tox B Gene Not detected Hepatitis C Antibody Hep C Ab Signal/Cutoff Hepatitis C RNA HCV RNA Quant (PCR) TB Test (QFT) Nil TB Test Mitogen - Nil TB Test TB - Nil TB Test (QFT) Microbiology 11/17/17 05:55 Blood Blood Culture - Preliminary NO GROWTH AFTER 4 DAYS 11/16/17 17:55 Blood Blood Culture - Preliminary NO GROWTH AFTER 4 DAYS 11/16/17 17:45 Blood Blood Culture - Preliminary NO GROWTH AFTER 4 DAYS 11/15/17 09:30 Blood Blood Culture - Final NO GROWTH AFTER 5 DAYS 11/15/17 09:30 Blood Gram Stain - Final TEST NOT PERFORMED 11/15/17 07:00 Stool Stool Culture - Final NO SALMONELLA, SHIGELLA OR CAMPYLOBACTER ISOLATED. 11/15/17 09:30 Blood S.aureus & Coag-Neg Staph PNA FISH - Final 11/15/17 09:30 Blood Blood Culture - Final Coagulase Neg Staphylococcus 11/15/17 09:30 Blood Gram Stain - Final 11/15/17 09:30 Urine,Clean Catch Urine Culture - Final No Growth (<1,000 CFU/ML) Assessment and Plan (1) Enterocolitis Status: Acute (2) Abdominal pain Status: Acute (3) Fever Status: Acute (4) Bacteremia Status: Acute - Assessment and Plan (Free Text) Assessment: A/P- 37 year old female with recently diagnosed crohn's disease, HCV treated 3 years ago in [facility] admitted with abd. pain, fever, weight loss, diarrhea and n/v afebrile tyoday, had fever last night normal wbc count stool c.diff ag pos, tox negative. she also found to have 1 of the 2 bottle - coag neg staph repeat blood cx- neg x 3 TTE- no vegetations as per report. stool cx- neg HCV VL< 15 not detected plan- advise to continue with Iv flagyl day #6 for colitis treatment advise to continue GI rec for crohn's disease treatment mesalamine and steroids d/c cipro ?? allergic reaction continue with oral vanco for c.diff day #5 coag neg staph in 1 blood cx on admission was most likely a contaminant. repeat blood cx- neg x 3 her fever could also have been secondary to her crohn's disease itself as well. EGD/colonoscopy as per GI tomm. All above d/w patient at length and she verbalizes full understanding of all above. case also d/ww GI and with DR.Pierre Lerma.
[2017-11-21] MEDS ORDERED: Peg-Electrolyte Oral Soln 4L (Golytely) PO ONE (13:00)
[2017-11-22] MEDS: metroNIDAZOLE 500mg/100ml NS 100 ML IVPB SCH ×2 (01:20→08:23)
[2017-11-22] MEDS: Vancomycin 500 mg (Oral/Rectal USE) PO SCH ×3 (01:20→17:25)
--- NOTE | 2017-11-22 06:22 | CP.PCM.PN ---
Subjective - Date & Time of Evaluation Date of Evaluation: 11/22/17 Time of Evaluation: 07:10 - Subjective Subjective: Pt is seen and examined at bed side. Pt had no acute event overnight. She state she got prep for colonoscopy/endoscopy, had some BM due to the prep fluid. Pt denied all her medication today including Lovenox. Pt denied having any fever, chest pain, SOB, abd pain, constipation, polyuria, dysuria. Objective - Vital Signs/Intake and Output Vital Signs (last 24 hours): Temp Pulse Resp BP Pulse Ox 98.5 F 61 18 95/61 L 97 11/22/17 04:00 11/22/17 04:00 11/22/17 04:00 11/22/17 04:00 11/22/17 04:00 - Medications Medications: Current Medications Acetaminophen (Tylenol 325mg Tab) 650 mg PO Q6 PRN PRN Reason: Pain, Mild (1-3) Last Admin: 11/17/17 16:06 Dose: 650 mg Acetaminophen (Tylenol 325mg Tab) 650 mg PO Q4 PRN PRN Reason: Fever >100.4 F Last Admin: 11/17/17 20:28 Dose: 650 mg Enoxaparin Sodium (Lovenox) 40 mg SC DAILY [facility] PRN Reason: Protocol Metronidazole (Flagyl 500mg/100ml Ns) 100 mls @ 100 mls/hr IVPB Q8 [facility] PRN Reason: Protocol Last Admin: 11/22/17 01:20 Dose: Not Given Mesalamine (Delzicol Dr) 1,200 mg PO QID [facility] Last Admin: 11/21/17 21:57 Dose: 1,200 mg Morphine Sulfate (Morphine) 1 mg IVP Q6 PRN PRN Reason: Pain, severe (8-10) Last Admin: 11/16/17 15:36 Dose: 1 mg Ondansetron HCl (Zofran Inj) 4 mg IVP Q6 PRN PRN Reason: Nausea/Vomiting Last Admin: 11/18/17 09:58 Dose: 4 mg Pantoprazole Sodium (Protonix Ec Tab) 40 mg PO DAILY [facility] Last Admin: 11/21/17 09:43 Dose: 40 mg Vancomycin HCl (Vancocin (Oral/Rectal Use)) 250 mg PO Q8 [facility] PRN Reason: Protocol Last Admin: 11/22/17 01:20 Dose: Not Given - Labs Labs: 11/19/17 05:30 11/20/17 08:30 PT 12.2 Seconds (9.8-13.1) 11/15/17 09:30 INR 1.1 (0.9-1.2) 11/15/17 09:30 APTT 31.3 Seconds (25.6-37.1) 11/15/17 09:30 - Constitutional Appears: Well, Non-toxic, No Acute Distress - Head Exam Head Exam: ATRAUMATIC, NORMAL INSPECTION, NORMOCEPHALIC - Eye Exam Eye Exam: EOMI, Normal appearance Pupil Exam: NORMAL ACCOMODATION, PERRL - ENT Exam ENT Exam: Mucous Membranes Moist, Normal Exam - Neck Exam Neck Exam: Full ROM, Normal Inspection - Respiratory Exam Respiratory Exam: Clear to Ausculation Bilateral, NORMAL BREATHING PATTERN - Cardiovascular Exam Cardiovascular Exam: REGULAR RHYTHM, +S1, +S2 - GI/Abdominal Exam GI & Abdominal Exam: Soft, Normal Bowel Sounds. absent: Tenderness - Extremities Exam Extremities Exam: Full ROM, Normal Inspection - Back Exam Back Exam: NORMAL INSPECTION - Neurological Exam Neurological Exam: Alert, Awake, Oriented x3 - Psychiatric Exam Psychiatric exam: Normal Affect, Normal Mood - Skin Skin Exam: Dry, Intact, Normal Color, Warm Assessment and Plan - Assessment and Plan (Free Text) Assessment: Assessment: 37 yo f with PMH of Crohns admitted for enterocolitis sepsis, and bactermia. Plan: Enterocolitis/ sepsis Infectious vs. inflammatory abdominal pain, improving c.diff toxin negative, antigen + enterography CT: bowel inflammation consistent with infectious/inflamm etiology , will follow up official read Echo: transmitral Doppler flow pattern is grade 1-abnormal relaxation pattern. no other finding Continue Vanco PO F/U Colonoscopy and endoscopy result Repeat blood cultures no growth f/u CBC, BMP Crohn's disease Now with non-bloody diarrhea continue Mesalamine 1200mg PO QID follow up GI recommendation Microcytic Anemia Hgb is improving Follow up cbc, bmp Diet Regular diet DVT Prophylaxis SCDs Lovenonx 40 SC
[2017-11-22 06:33] LABS: MEAN CELL VOLUME 67.8 fl (81.0-99.0); MEAN CORPUSCULAR HEMOGLOBIN 21.5 pg (27.0-31.0); MEAN CORPUSCULAR HGB CONC 31.8 g/dL (33.0-37.0); RBC 4.63 Mil/uL (3.80-5.20); RED CELL DISTRIBUTION WIDTH 21.3 % (11.5-14.5); WHITE BLOOD COUNT 4.2 K/uL (4.8-10.8)
[2017-11-22 06:44] LABS: BLOOD UREA NITROGEN 6 mg/dl (7-17); CALCIUM 8.5 mg/dL (8.4-10.2); GFR AFRICAN-AMERICAN > 60; GFR NON-AFRICAN AMERICAN > 60
[2017-11-22] MEDS: Pantoprazole 40 mg EC Tab PO SCH (08:23)
[2017-11-22 09:10] LABS: INR 1.2 (0.9-1.2); PROTHROMBIN TIME 13.6 Seconds (9.8-13.1)
[2017-11-22] MEDS: Enoxaparin 40 mg Syringe SC SCH (09:59)
[2017-11-22] MEDS ORDERED: Sodium Chloride 0.9% 1,000 ML IV SCH (10:00)
--- NOTE | 2017-11-22 11:24 | CT ---
Date of service: 11/18/2017 PROCEDURE: CT Abdomen and Pelvis with and without intravenous contrast HISTORY: Abdominal pain. COMPARISON: 11/15/2017 CT abdomen pelvis 10/07/2017 CT abdomen pelvis TECHNIQUE: Axial images of the abdomen were obtained in the pre contrast, portal venous and delayed phases of enhancement. Coronal and sagittal reformats were generated. Contrast dose: 99 cc Visipaque 320. Radiation dose: Total exam DLP = 206.27 mGy-cm. This CT exam was performed using one or more of the following dose reduction techniques: Automated exposure control, adjustment of the mA and/or kV according to patient size, and/or use of iterative reconstruction technique. FINDINGS: LOWER THORAX: Unremarkable. LIVER: Hepatomegaly, hepatic steatosis. GALLBLADDER AND BILE DUCTS: Normal gallbladder with trace pericholecystic fluid. PANCREAS: Unremarkable. No gross lesion or ductal dilatation. SPLEEN: Unremarkable. ADRENALS: Unremarkable. No mass. KIDNEYS AND URETERS: No hydronephrosis. No solid mass Asymmetric enhancement upper pole right kidney compared to left. The findings are nonspecific they may represent pyelonephritis.. VASCULATURE: Unremarkable. No aortic aneurysm. BOWEL: Diffuse enterocolitis. Similar findings have been described on prior CT scans. The degree of enhancement of the wall of the small bowel and colon has increased as has the degree of fluid in the small bowel and colon gross mural thickening. APPENDIX: Thickening of the wall of the appendix without adjacent inflammatory changes. These are indeterminate findings regarding appendicitis. PERITONEUM: Unremarkable. No free fluid. No free air. LYMPH NODES: Unremarkable. No enlarged lymph nodes. BLADDER: Unremarkable. REPRODUCTIVE: Enlarged, myomatous uterus. BONES: No acute fracture. OTHER FINDINGS: None. IMPRESSION: Enterocolitis more severe on the current CT scan than seen previously. Atypical contrast-enhancing characteristics upper pole right kidney which may represent pyelonephritis.
[2017-11-22] MEDS ORDERED: Lactated Ringer's 500 ML IV ONE (14:02)
[2017-11-22] MEDS ORDERED: Propofol 10 mg/ml Inj (20 ML) ONE (15:37)
[2017-11-22] MEDS ORDERED: Lactated Ringer's 1,000 ML IV SCH (16:00)
--- NOTE | 2017-11-22 17:44 | CP.PCM.PCO ---
Physician Communication Note - Physician Communication Note Physician Communication Note: s/p colonoscopy and ileoscopy. Cultures sent fr HSV, CMV and C diff
[2017-11-23] MEDS: Vancomycin 500 mg (Oral/Rectal USE) PO SCH ×3 (01:42→16:26)
--- NOTE | 2017-11-23 06:36 | CP.PCM.PN ---
Objective - Vital Signs/Intake and Output Vital Signs (last 24 hours): Temp Pulse Resp BP Pulse Ox 98.3 F 69 18 95/61 L 99 11/23/17 00:00 11/23/17 00:00 11/23/17 00:00 11/23/17 00:00 11/23/17 00:00 Intake and Output: 11/22/17 11/23/17 18:59 06:59 Intake Total 200 Balance 200 - Medications Medications: Current Medications Acetaminophen (Tylenol 325mg Tab) 650 mg PO Q6 PRN PRN Reason: Pain, Mild (1-3) Last Admin: 11/17/17 16:06 Dose: 650 mg Acetaminophen (Tylenol 325mg Tab) 650 mg PO Q4 PRN PRN Reason: Fever >100.4 F Last Admin: 11/17/17 20:28 Dose: 650 mg Enoxaparin Sodium (Lovenox) 40 mg SC DAILY [facility] PRN Reason: Protocol Last Admin: 11/22/17 09:59 Dose: Not Given Sodium Chloride (Sodium Chloride 0.9%) 1,000 mls @ 75 mls/hr IV .[id number] [facility] Stop: 11/23/17 09:48 Last Admin: 11/22/17 09:58 Dose: 75 mls/hr Lactated Ringer's (Lactated Ringer's) 1,000 mls @ 100 mls/hr IV .Q10H [facility] Mesalamine (Delzicol Dr) 1,200 mg PO QID [facility] Last Admin: 11/22/17 21:18 Dose: 1,200 mg Ondansetron HCl (Zofran Inj) 4 mg IVP Q6 PRN PRN Reason: Nausea/Vomiting Last Admin: 11/18/17 09:58 Dose: 4 mg Pantoprazole Sodium (Protonix Ec Tab) 40 mg PO DAILY [facility] Last Admin: 11/22/17 08:23 Dose: Not Given Prednisone (Prednisone Tab) 60 mg PO DAILY [facility] Last Admin: 11/22/17 18:21 Dose: 60 mg Vancomycin HCl (Vancocin (Oral/Rectal Use)) 250 mg PO Q8 [facility] PRN Reason: Protocol Last Admin: 11/23/17 01:42 Dose: Not Given - Labs Labs: 11/22/17 05:50 11/22/17 05:50 PT 13.6 Seconds (9.8-13.1) H 11/22/17 08:51 INR 1.2 (0.9-1.2) 11/22/17 08:51 APTT 31.3 Seconds (25.6-37.1) 11/15/17 09:30
[2017-11-23] MEDS: Pantoprazole 40 mg EC Tab PO SCH (08:28)
[2017-11-23] MEDS: Enoxaparin 40 mg Syringe SC SCH (08:29)
--- NOTE | 2017-11-23 09:34 | CP.PCM.DIS ---
Provider - Provider Date of Admission: 11/15/17 14:05 Attending physician: Stephanie León MD Diagnosis - Discharge Diagnosis (1) Crohn disease Status: Chronic (2) Sepsis Status: Acute (3) Colitis Status: Acute Hospital Course - Lab Results Lab Results: Micro Results 11/17/17 05:55 Blood Blood Culture - Final NO GROWTH AFTER 5 DAYS 11/17/17 05:55 Blood Gram Stain - Final TEST NOT PERFORMED 11/16/17 17:55 Blood Blood Culture - Final NO GROWTH AFTER 5 DAYS 11/16/17 17:55 Blood Gram Stain - Final TEST NOT PERFORMED 11/16/17 17:45 Blood Blood Culture - Final NO GROWTH AFTER 5 DAYS 11/16/17 17:45 Blood Gram Stain - Final TEST NOT PERFORMED 11/15/17 09:30 Blood Blood Culture - Final NO GROWTH AFTER 5 DAYS 11/15/17 09:30 Blood Gram Stain - Final TEST NOT PERFORMED 11/15/17 07:00 Stool Stool Culture - Final NO SALMONELLA, SHIGELLA OR CAMPYLOBACTER ISOLATED. 11/15/17 09:30 Blood S.aureus & Coag-Neg Staph PNA FISH - Final 11/15/17 09:30 Blood Blood Culture - Final Coagulase Neg Staphylococcus 11/15/17 09:30 Blood Gram Stain - Final 11/15/17 09:30 Urine,Clean Catch Urine Culture - Final No Growth (<1,000 CFU/ML) Most Recent Lab Values WBC 4.2 K/uL (4.8-10.8) L 11/22/17 05:50 RBC 4.63 Mil/uL (3.80-5.20) 11/22/17 05:50 Hgb 10.0 g/dL (12.0-16.0) L 11/22/17 05:50 Hct 31.4 % (34.0-47.0) L 11/22/17 05:50 MCV 67.8 fl (81.0-99.0) L 11/22/17 05:50 MCH 21.5 pg (27.0-31.0) L 11/22/17 05:50 MCHC 31.8 g/dL (33.0-37.0) L 11/22/17 05:50 RDW 21.3 % (11.5-14.5) H 11/22/17 05:50 Plt Count 470 K/uL (130-400) H D 11/22/17 05:50 MPV 7.3 fl (7.2-11.7) 11/19/17 05:30 Neut % (Auto) 68.0 % (50.0-75.0) 11/19/17 05:30 Lymph % (Auto) 14.5 % (20.0-40.0) L 11/19/17 05:30 Young % (Auto) 12.0 % (0.0-10.0) H 11/19/17 05:30 Eos % (Auto) 5.1 % (0.0-4.0) H 11/19/17 05:30 Baso % (Auto) 0.4 % (0.0-2.0) 11/19/17 05:30 Neut # (Auto) 2.9 K/uL (1.8-7.0) 11/19/17 05:30 Lymph # (Auto) 0.6 K/uL (1.0-4.3) L 11/19/17 05:30 Young # (Auto) 0.5 K/uL (0.0-0.8) 11/19/17 05:30 Eos # (Auto) 0.2 K/uL (0.0-0.7) 11/19/17 05:30 Baso # (Auto) 0.0 K/uL (0.0-0.2) 11/19/17 05:30 Neutrophils % (Manual) 79 % (42-75) H 11/15/17 09:30 Band Neutrophils % 4 % (0-2) H 11/15/17 09:30 Lymphocytes % (Manual) 9 % (20-50) L 11/15/17 09:30 Monocytes % (Manual) 6 % (0-10) 11/15/17 09:30 Eosinophils % (Manual) 2 % (0-7) 11/15/17 09:30 Platelet Estimate Slightly increased (NORMAL) H 11/15/17 09:30 Hypochromasia (manual) Moderate 11/15/17 09:30 Anisocytosis (manual) Slight 11/15/17 09:30 Microcytosis (manual) Moderate 11/15/17 09:30 Target Cells Slight 11/15/17 09:30 Ovalocytes Slight 11/15/17 09:30 Schistocytes Slight 11/15/17 09:30 Retic Count 1.5 % (0.5-1.5) 11/17/17 14:38 PT 13.6 Seconds (9.8-13.1) H 11/22/17 08:51 INR 1.2 (0.9-1.2) 11/22/17 08:51 APTT 31.3 Seconds (25.6-37.1) 11/15/17 09:30 pO2 26 mm/Hg (30-55) L 11/15/17 10:00 VBG pH 7.42 (7.32-7.43) 11/15/17 10:00 VBG pCO2 46 mmHg (40-60) 11/15/17 10:00 VBG HCO3 27.1 mmol/L 11/15/17 10:00 VBG Total CO2 31.2 mmol/L (22-28) H 11/15/17 10:00 VBG O2 Sat (Calc) 52.6 % (40-65) 11/15/17 10:00 VBG Base Excess 4.5 mmol/L (0.0-2.0) H 11/15/17 10:00 VBG Potassium 3.6 mmol/L (3.6-5.2) 11/15/17 10:00 Sodium 133.0 mmol/L (132-148) 11/15/17 10:00 Chloride 101.0 mmol/L (98-107) 11/15/17 10:00 Glucose 102 mg/dL (65-105) 11/15/17 10:00 Lactate 1.3 mmol/L (0.7-2.1) 11/15/17 10:00 FiO2 21.0 % 11/15/17 10:00 Sodium 137 mmol/l (132-148) 11/22/17 05:50 Potassium 4.0 MMOL/L (3.6-5.0) 11/22/17 05:50 Chloride 103 mmol/L (98-107) 11/22/17 05:50 Carbon Dioxide 25 mmol/L (22-30) 11/22/17 05:50 Anion Gap 13 (10-20) 11/22/17 05:50 BUN 6 mg/dl (7-17) L 11/22/17 05:50 Creatinine 0.6 mg/dl (0.7-1.2) L 11/22/17 05:50 Est GFR ( Amer) > 60 11/22/17 05:50 Est GFR (Non-Af Amer) > 60 11/22/17 05:50 Random Glucose 88 mg/dL (65-105) 11/22/17 05:50 Calcium 8.5 mg/dL (8.4-10.2) 11/22/17 05:50 Phosphorus 3.2 mg/dl (2.5-4.5) 11/15/17 09:30 Magnesium 1.9 MG/DL (1.6-2.3) 11/15/17 09:30 Iron 11 ug/dL (37-170) L 11/17/17 08:30 TIBC 323 ug/dL (250-450) 11/17/17 08:30 % Saturation 3 % (20-55) L 11/17/17 08:30 Ferritin 19.7 ng/Ml (6.24-137.0) 11/17/17 07:50 Total Bilirubin 0.6 mg/dl (0.2-1.3) 11/18/17 05:20 Direct Bilirubin 0.2 mg/ml (0.0-0.4) 11/17/17 07:50 AST 25 U/L (14-36) 11/18/17 05:20 ALT 38 U/L (9-52) 11/18/17 05:20 Alkaline Phosphatase 351 U/L (38-126) H 11/18/17 05:20 Total Creatine Kinase < 20 U/L (30-135) L 11/17/17 20:09 Total Protein 5.2 G/DL (6.3-8.2) L 11/18/17 05:20 Albumin 2.3 g/dL (3.5-5.0) L 11/18/17 05:20 Globulin 2.8 gm/dL (2.2-3.9) 11/18/17 05:20 Albumin/Globulin Ratio 0.8 (1.0-2.1) L 11/18/17 05:20 Alpha Fetoprotein 1.2 IU/mL (0.0-7.22) 11/17/17 20:09 Vitamin B12 352 pg/mL (239-931) 11/17/17 07:50 25-OH Vitamin D Total < 12.8 NG/ML (30.0-100.0) L 11/17/17 08:30 Venous Blood Potassium 3.6 mmol/L (3.6-5.2) 11/15/17 10:00 Urine Color Yellow (YELLOW) 11/15/17 09:30 Urine Clarity Cloudy (Clear) 11/15/17 09:30 Urine pH 6.0 (5.0-8.0) 11/15/17 09:30 Ur Specific [place] 1.014 (1.003-1.030) 11/15/17 09:30 Urine Protein Negative mg/dL (NEGATIVE) 11/15/17 09:30 Urine Glucose (UA) Neg mg/dL (Normal) 11/15/17 09:30 Urine Ketones Negative mg/dL (NEGATIVE) 11/15/17 09:30 Urine Blood Negative (NEGATIVE) 11/15/17 09:30 Urine Nitrate Negative (NEGATIVE) 11/15/17 09:30 Urine Bilirubin Negative (NEGATIVE) 11/15/17 09:30 Urine Urobilinogen 0.2-1.0 mg/dL (0.2-1.0) 11/15/17 09:30 Ur Leukocyte Esterase Neg Ana/uL (Negative) 11/15/17 09:30 Urine RBC (Auto) 1 /hpf (0-3) 11/15/17 09:30 Urine Microscopic WBC 8 /hpf (0-5) H 11/15/17 09:30 Ur Squamous Epith Cells 8 /hpf (0-5) H 11/15/17 09:30 Urine Bacteria Rare (<OCC) 11/15/17 09:30 Vancomycin Trough < 5.0 ug/mL (5.0-10.0) L 11/18/17 20:30 Lyme Disease Screen <0.90 index 11/19/17 15:14 C. difficile Tox B Gene Not detected (Not Detected) 11/19/17 15:14 C. difficile Ag & Toxin Positive antigen (NEGATIVE) 11/16/17 07:00 Hepatitis C Antibody Reactive (NEGATIVE) 11/18/17 17:55 Hep C Ab Signal/Cutoff 25.3 Ratio (<1.0) H 11/18/17 17:55 Hepatitis C RNA <15 not detected IU/mL (Not Detected) 11/16/17 09:48 HCV RNA Quant (PCR) <1.18 not detected Log IU/mL (Not Detected) 11/16/17 09: 48 HIV 1&2 Antibody Screen Negative (NEGATIVE) 11/17/17 20:09 TB Test (QFT) Nil 1.02 IU/mL 11/17/17 11:15 TB Test Mitogen - Nil 0.87 IU/mL 11/17/17 11:15 TB Test TB - Nil <0.00 IU/mL 11/17/17 11:15 TB Test (QFT) Negative (Negative) 11/17/17 11:15 Blood Type O POSITIVE 11/17/17 11:15 Blood Type Confirm O POSITIVE 11/17/17 11:40 Antibody Screen Negative 11/17/17 11:15 Crossmatch See Detail 11/17/17 11:15 BBK History Checked No verified bt 11/17/17 11:15 - Hospital Course Hospital Course: Pt is a 37 yo f with pmh of Crohn, hypoglycemia presented to ER with abdominal pain, bloody diarrhea, and fever got admitted due to Sepsis and exacerbation of crohn disease. ID and GI was on the case. Pt was treated medically and scoped with multiple biopsy by GI. Pt is improved. Pt had no fever, chest pain, SOB, or diarrhea but mild abdominal pain most likely due to colonoscopy and endoscopy . Crohn disease medication were adjusted, education was given both for disease and medication intake, Pt agree with plan and ready to go home. GI, ID and Medical team clear the patient to be discharged home, F/u PCP in 2 week and GI in 4. Discharge Exam - Head Exam Head Exam: ATRAUMATIC, NORMAL INSPECTION, NORMOCEPHALIC Discharge Plan - Follow Up Plan Condition: FAIR Disposition: HOME/ ROUTINE Instructions: Crohn's Disease in Adults, Inflammatory Bowel Disease (DC), Sepsis (DC), Sepsis (GEN) Additional Instructions: follow up with primary medical doctor in 2-3 days drink lots of fluids follow up with Dr. Cason in 1 week any worsening of symptoms return to ED for evaluation and treatment Referrals: [facility] [place] [Outside] Keith Cason MD [Medical Doctor] -
--- NOTE | 2017-11-23 10:58 | CP.PCM.PN ---
<Mariluz Browning - Last Filed: 11/23/17 14:02> Subjective - Date & Time of Evaluation Date of Evaluation: 11/23/17 Time of Evaluation: 07:00 - Subjective Subjective: PGY5 GI follow-up Pt seen and examined bedside c/o abd pain tolerated diet with mild abd pain denies any nausea or vomiting ROS: 12 point ROS conducted, neg other than above Objective - Vital Signs/Intake and Output Vital Signs (last 24 hours): Temp Pulse Resp BP Pulse Ox 97.8 F 57 L 20 106/67 100 11/23/17 09:00 11/23/17 09:00 11/23/17 09:00 11/23/17 09:00 11/23/17 09:00 - Medications Medications: Current Medications Acetaminophen (Tylenol 325mg Tab) 650 mg PO Q6 PRN PRN Reason: Pain, Mild (1-3) Last Admin: 11/17/17 16:06 Dose: 650 mg Acetaminophen (Tylenol 325mg Tab) 650 mg PO Q4 PRN PRN Reason: Fever >100.4 F Last Admin: 11/17/17 20:28 Dose: 650 mg Enoxaparin Sodium (Lovenox) 40 mg SC DAILY [facility] PRN Reason: Protocol Last Admin: 11/23/17 08:29 Dose: 40 mg Lactated Ringer's (Lactated Ringer's) 1,000 mls @ 100 mls/hr IV .Q10H [facility] Mesalamine (Delzicol Dr) 1,200 mg PO QID [facility] Last Admin: 11/23/17 08:28 Dose: 1,200 mg Ondansetron HCl (Zofran Inj) 4 mg IVP Q6 PRN PRN Reason: Nausea/Vomiting Last Admin: 11/23/17 08:33 Dose: 4 mg Pantoprazole Sodium (Protonix Ec Tab) 40 mg PO DAILY [facility] Last Admin: 11/23/17 08:28 Dose: 40 mg Prednisone (Prednisone Tab) 60 mg PO DAILY [facility] Last Admin: 11/23/17 08:29 Dose: 60 mg Vancomycin HCl (Vancocin (Oral/Rectal Use)) 250 mg PO Q8 [facility] PRN Reason: Protocol Last Admin: 11/23/17 08:29 Dose: 250 mg - Labs Labs: 11/22/17 05:50 11/22/17 05:50 PT 13.6 Seconds (9.8-13.1) H 11/22/17 08:51 INR 1.2 (0.9-1.2) 11/22/17 08:51 APTT 31.3 Seconds (25.6-37.1) 11/15/17 09:30 - Constitutional Appears: Well, No Acute Distress - Head Exam Head Exam: ATRAUMATIC, NORMOCEPHALIC - Eye Exam Eye Exam: Normal appearance - ENT Exam ENT Exam: Mucous Membranes Moist, Normal Exam - Neck Exam Neck Exam: Normal Inspection - Respiratory Exam Respiratory Exam: Clear to Ausculation Bilateral, NORMAL BREATHING PATTERN. absent: Rales, Rhonchi, Wheezes, Respiratory Distress - Cardiovascular Exam Cardiovascular Exam: REGULAR RHYTHM, +S1, +S2 - GI/Abdominal Exam GI & Abdominal Exam: Soft, Tenderness (epigastric area), Normal Bowel Sounds. absent: Distended, Firm, Guarding, Rigid, Organomegaly, Rebound - Extremities Exam Extremities Exam: absent: Joint Swelling, Pedal Edema - Neurological Exam Neurological Exam: Alert, Awake, Oriented x3 - Skin Skin Exam: Dry, Intact, Normal Color, Warm Assessment and Plan - Assessment and Plan (Free Text) Assessment: 37 year old female with PMH of Crohn's ileocolitis and prior HCV s/p treatment( unknown SVR) who presents with abd pain,worsening bloody diarrhea, abdominal pain, subjective fever, and weight loss. Active treatment of enterocolitis on CT A/P with concern for Crohn's ileocolits flare versus infectious diarrhea. s/ p POD #1 EGD, deep ulceration from rectum to ileum, friable mucosa, likely crohns Plan: -continue mesalamine 1.2g PO QID -would finish empiric PO vancomycin PO for 10-14 days -stool cultures and pathology pending -continue prednisone 60mg daily until clinic appt GI on December 05 2017 -afterwards, decrease 10mg weekly to off -continue mesalamine 1g QID -will eventually need rescope in 2-3 months -recommend social security benefits interviewer consult to obtain medicade -if no improvement in symptoms will likely need biologics and immunomodulating combination therapy Will D/W D. Kamla <Keith Cason - Last Filed: 11/23/17 14:10> Objective - Vital Signs/Intake and Output Vital Signs (last 24 hours): Temp Pulse Resp BP Pulse Ox 97.8 F 57 L 20 106/67 100 11/23/17 09:00 11/23/17 09:00 11/23/17 09:00 11/23/17 09:00 11/23/17 09:00 - Medications Medications: Current Medications Acetaminophen (Tylenol 325mg Tab) 650 mg PO Q6 PRN PRN Reason: Pain, Mild (1-3) Last Admin: 11/17/17 16:06 Dose: 650 mg Acetaminophen (Tylenol 325mg Tab) 650 mg PO Q4 PRN PRN Reason: Fever >100.4 F Last Admin: 11/17/17 20:28 Dose: 650 mg Enoxaparin Sodium (Lovenox) 40 mg SC DAILY [facility] PRN Reason: Protocol Last Admin: 11/23/17 08:29 Dose: 40 mg Lactated Ringer's (Lactated Ringer's) 1,000 mls @ 100 mls/hr IV .Q10H [facility] Mesalamine (Delzicol Dr) 1,200 mg PO QID [facility] Last Admin: 11/23/17 12:20 Dose: 1,200 mg Ondansetron HCl (Zofran Inj) 4 mg IVP Q6 PRN PRN Reason: Nausea/Vomiting Last Admin: 11/23/17 08:33 Dose: 4 mg Pantoprazole Sodium (Protonix Ec Tab) 40 mg PO DAILY [facility] Last Admin: 11/23/17 08:28 Dose: 40 mg Prednisone (Prednisone Tab) 60 mg PO DAILY [facility] Last Admin: 11/23/17 08:29 Dose: 60 mg Vancomycin HCl (Vancocin (Oral/Rectal Use)) 250 mg PO Q8 [facility] PRN Reason: Protocol Last Admin: 11/23/17 08:29 Dose: 250 mg - Labs Labs: 11/22/17 05:50 11/22/17 05:50 PT 13.6 Seconds (9.8-13.1) H 11/22/17 08:51 INR 1.2 (0.9-1.2) 11/22/17 08:51 APTT 31.3 Seconds (25.6-37.1) 11/15/17 09:30 Attending/Attestation - Attestation I have personally seen and examined this patient.: Yes I have fully participated in the care of the patient.: Yes I have reviewed all pertinent clinical information, including history, physical exam and plan: Yes Notes (Text): 11/23/17 14:06 This is a 37 year old female with PMH of Crohn's ileocolitis and prior HCV s/p treatment(undetected SVR) who presents with abdominal pain,worsening bloody diarrhea, abdominal pain, subjective fever, and weight loss. Active treatment of enterocolitis on CT A/P with concern for Crohn's ileocolits flare s/p EGD showing deep ulcerations from rectum to ileum, skip lesions and friable mucosa, likely crohns. Sent for cultures and biopsies to rule out C diff and HSV, EBV. Continue mesalamine and start steroids to taper off next 3 months. Will start Imuran in clinic when she comes for 2 week follow up.
--- NOTE | 2017-11-23 15:14 | CP.PCM.PN ---
Subjective - Date & Time of Evaluation Date of Evaluation: 11/23/17 Time of Evaluation: 10:30 - Subjective Subjective: Pt is seen and examined at bed side. Pt had no acute event overnight. She state she went for colonoscopy/endoscopy. Pt denied all her medication today including Lovenox even after recommendation and education about DVT prophylaxis. Pt was seen early in the morning and she had no complain, pt was ready to be discharged but when she had her breakfest she began to have an epigastric pain and could not tolerate food. Pt dont want Tylenol, but morphine to tx her abdominal pain. Pt denied having any fever, chest pain, SOB, diarrhea , constipation, polyuria, dysuria. Objective - Vital Signs/Intake and Output Vital Signs (last 24 hours): Temp Pulse Resp BP Pulse Ox 97.8 F 57 L 20 106/67 100 11/23/17 09:00 11/23/17 09:00 11/23/17 09:00 11/23/17 09:00 11/23/17 09:00 - Medications Medications: Current Medications Acetaminophen (Tylenol 325mg Tab) 650 mg PO Q6 PRN PRN Reason: Pain, Mild (1-3) Last Admin: 11/17/17 16:06 Dose: 650 mg Acetaminophen (Tylenol 325mg Tab) 650 mg PO Q4 PRN PRN Reason: Fever >100.4 F Last Admin: 11/17/17 20:28 Dose: 650 mg Enoxaparin Sodium (Lovenox) 40 mg SC DAILY [facility] PRN Reason: Protocol Last Admin: 11/23/17 08:29 Dose: 40 mg Lactated Ringer's (Lactated Ringer's) 1,000 mls @ 100 mls/hr IV .Q10H [facility] Lidocaine (Lidoderm) 2 ea TD DAILY [facility] Mesalamine (Delzicol Dr) 1,200 mg PO QID [facility] Last Admin: 11/23/17 12:20 Dose: 1,200 mg Ondansetron HCl (Zofran Inj) 4 mg IVP Q6 PRN PRN Reason: Nausea/Vomiting Last Admin: 11/23/17 08:33 Dose: 4 mg Pantoprazole Sodium (Protonix Ec Tab) 40 mg PO DAILY [facility] Last Admin: 11/23/17 08:28 Dose: 40 mg Prednisone (Prednisone Tab) 60 mg PO DAILY [facility] Last Admin: 11/23/17 08:29 Dose: 60 mg Vancomycin HCl (Vancocin (Oral/Rectal Use)) 250 mg PO Q8 [facility] PRN Reason: Protocol Last Admin: 11/23/17 08:29 Dose: 250 mg - Labs Labs: 11/22/17 05:50 11/22/17 05:50 PT 13.6 Seconds (9.8-13.1) H 11/22/17 08:51 INR 1.2 (0.9-1.2) 11/22/17 08:51 APTT 31.3 Seconds (25.6-37.1) 11/15/17 09:30 - Constitutional Appears: Well, Non-toxic, No Acute Distress - Head Exam Head Exam: ATRAUMATIC, NORMAL INSPECTION, NORMOCEPHALIC - Eye Exam Eye Exam: EOMI, Normal appearance, PERRL Pupil Exam: NORMAL ACCOMODATION, PERRL - ENT Exam ENT Exam: Mucous Membranes Moist, Normal Exam - Neck Exam Neck Exam: Full ROM, Normal Inspection - Respiratory Exam Respiratory Exam: Clear to Ausculation Bilateral, NORMAL BREATHING PATTERN - Cardiovascular Exam Cardiovascular Exam: REGULAR RHYTHM - GI/Abdominal Exam GI & Abdominal Exam: Soft, Tenderness, Normal Bowel Sounds Additional comments: tender on epigastric area - Extremities Exam Extremities Exam: Full ROM, Normal Capillary Refill, Normal Inspection. absent : Calf Tenderness - Back Exam Back Exam: NORMAL INSPECTION - Neurological Exam Neurological Exam: Alert, Awake, Oriented x3 - Psychiatric Exam Psychiatric exam: Normal Affect, Normal Mood - Skin Skin Exam: Dry, Intact, Normal Color, Warm Assessment and Plan (1) Crohn disease Assessment & Plan: Pt continue to have epigastric pain, exacerbated after eating colonoscopy and endoscopy demonstrate ulceration along the colon, Biopsy was taken pending result Plan Small bite, and soft food for now Tylenol prn Continue Mesalamine 1200, Prednisone Vanco PO for 4 days. F/L GI recommendation Status: Chronic (2) Sepsis Assessment & Plan: Pt is afebrile, vitals WNL Resolved Status: Resolved - Assessment and Plan (Free Text) Assessment: Anemia Improved DVT Prophylaxis SCDS Levonox SC
[2017-11-23] MEDS: Lidocaine 5% Patch TD SCH (16:25)
[2017-11-24] MEDS: Vancomycin 500 mg (Oral/Rectal USE) PO SCH ×2 (01:23→08:47)
[2017-11-24 08:36] VITALS: BP 92/62; PULSE 58; RESP 20; TEMP 97.8; O2SAT 98
[2017-11-24] MEDS: Lidocaine 5% Patch TD SCH (08:45)
[2017-11-24] MEDS: Enoxaparin 40 mg Syringe SC SCH (08:46)
[2017-11-24] MEDS: Pantoprazole 40 mg EC Tab PO SCH (08:46)
--- NOTE | 2017-11-24 10:23 | CP.PCM.DIS ---
Provider - Provider Date of Admission: 11/15/17 14:05 Attending physician: Stephanie León MD Diagnosis - Discharge Diagnosis (1) Crohn disease Status: Chronic (2) Sepsis Status: Resolved Hospital Course - Lab Results Lab Results: Micro Results 11/17/17 05:55 Blood Blood Culture - Final NO GROWTH AFTER 5 DAYS 11/17/17 05:55 Blood Gram Stain - Final TEST NOT PERFORMED 11/16/17 17:55 Blood Blood Culture - Final NO GROWTH AFTER 5 DAYS 11/16/17 17:55 Blood Gram Stain - Final TEST NOT PERFORMED 11/16/17 17:45 Blood Blood Culture - Final NO GROWTH AFTER 5 DAYS 11/16/17 17:45 Blood Gram Stain - Final TEST NOT PERFORMED 11/15/17 09:30 Blood Blood Culture - Final NO GROWTH AFTER 5 DAYS 11/15/17 09:30 Blood Gram Stain - Final TEST NOT PERFORMED 11/15/17 07:00 Stool Stool Culture - Final NO SALMONELLA, SHIGELLA OR CAMPYLOBACTER ISOLATED. 11/15/17 09:30 Blood S.aureus & Coag-Neg Staph PNA FISH - Final 11/15/17 09:30 Blood Blood Culture - Final Coagulase Neg Staphylococcus 11/15/17 09:30 Blood Gram Stain - Final 11/15/17 09:30 Urine,Clean Catch Urine Culture - Final No Growth (<1,000 CFU/ML) Most Recent Lab Values WBC 4.2 K/uL (4.8-10.8) L 11/22/17 05:50 RBC 4.63 Mil/uL (3.80-5.20) 11/22/17 05:50 Hgb 10.0 g/dL (12.0-16.0) L 11/22/17 05:50 Hct 31.4 % (34.0-47.0) L 11/22/17 05:50 MCV 67.8 fl (81.0-99.0) L 11/22/17 05:50 MCH 21.5 pg (27.0-31.0) L 11/22/17 05:50 MCHC 31.8 g/dL (33.0-37.0) L 11/22/17 05:50 RDW 21.3 % (11.5-14.5) H 11/22/17 05:50 Plt Count 470 K/uL (130-400) H D 11/22/17 05:50 MPV 7.3 fl (7.2-11.7) 11/19/17 05:30 Neut % (Auto) 68.0 % (50.0-75.0) 11/19/17 05:30 Lymph % (Auto) 14.5 % (20.0-40.0) L 11/19/17 05:30 [place] % (Auto) 12.0 % (0.0-10.0) H 11/19/17 05:30 Eos % (Auto) 5.1 % (0.0-4.0) H 11/19/17 05:30 Baso % (Auto) 0.4 % (0.0-2.0) 11/19/17 05:30 Neut # (Auto) 2.9 K/uL (1.8-7.0) 11/19/17 05:30 Lymph # (Auto) 0.6 K/uL (1.0-4.3) L 11/19/17 05:30 [place] # (Auto) 0.5 K/uL (0.0-0.8) 11/19/17 05:30 Eos # (Auto) 0.2 K/uL (0.0-0.7) 11/19/17 05:30 Baso # (Auto) 0.0 K/uL (0.0-0.2) 11/19/17 05:30 Neutrophils % (Manual) 79 % (42-75) H 11/15/17 09:30 Band Neutrophils % 4 % (0-2) H 11/15/17 09:30 Lymphocytes % (Manual) 9 % (20-50) L 11/15/17 09:30 Monocytes % (Manual) 6 % (0-10) 11/15/17 09:30 Eosinophils % (Manual) 2 % (0-7) 11/15/17 09:30 Platelet Estimate Slightly increased (NORMAL) H 11/15/17 09:30 Hypochromasia (manual) Moderate 11/15/17 09:30 Anisocytosis (manual) Slight 11/15/17 09:30 Microcytosis (manual) Moderate 11/15/17 09:30 Target Cells Slight 11/15/17 09:30 Ovalocytes Slight 11/15/17 09:30 Schistocytes Slight 11/15/17 09:30 Retic Count 1.5 % (0.5-1.5) 11/17/17 14:38 PT 13.6 Seconds (9.8-13.1) H 11/22/17 08:51 INR 1.2 (0.9-1.2) 11/22/17 08:51 APTT 31.3 Seconds (25.6-37.1) 11/15/17 09:30 pO2 26 mm/Hg (30-55) L 11/15/17 10:00 VBG pH 7.42 (7.32-7.43) 11/15/17 10:00 VBG pCO2 46 mmHg (40-60) 11/15/17 10:00 VBG HCO3 27.1 mmol/L 11/15/17 10:00 VBG Total CO2 31.2 mmol/L (22-28) H 11/15/17 10:00 VBG O2 Sat (Calc) 52.6 % (40-65) 11/15/17 10:00 VBG Base Excess 4.5 mmol/L (0.0-2.0) H 11/15/17 10:00 VBG Potassium 3.6 mmol/L (3.6-5.2) 11/15/17 10:00 Sodium 133.0 mmol/L (132-148) 11/15/17 10:00 Chloride 101.0 mmol/L (98-107) 11/15/17 10:00 Glucose 102 mg/dL (65-105) 11/15/17 10:00 Lactate 1.3 mmol/L (0.7-2.1) 11/15/17 10:00 FiO2 21.0 % 11/15/17 10:00 Sodium 137 mmol/l (132-148) 11/22/17 05:50 Potassium 4.0 MMOL/L (3.6-5.0) 11/22/17 05:50 Chloride 103 mmol/L (98-107) 11/22/17 05:50 Carbon Dioxide 25 mmol/L (22-30) 11/22/17 05:50 Anion Gap 13 (10-20) 11/22/17 05:50 BUN 6 mg/dl (7-17) L 11/22/17 05:50 Creatinine 0.6 mg/dl (0.7-1.2) L 11/22/17 05:50 Est GFR ( Amer) > 60 11/22/17 05:50 Est GFR (Non-Af Amer) > 60 11/22/17 05:50 Random Glucose 88 mg/dL (65-105) 11/22/17 05:50 Calcium 8.5 mg/dL (8.4-10.2) 11/22/17 05:50 Phosphorus 3.2 mg/dl (2.5-4.5) 11/15/17 09:30 Magnesium 1.9 MG/DL (1.6-2.3) 11/15/17 09:30 Iron 11 ug/dL (37-170) L 11/17/17 08:30 TIBC 323 ug/dL (250-450) 11/17/17 08:30 % Saturation 3 % (20-55) L 11/17/17 08:30 Ferritin 19.7 ng/Ml (6.24-137.0) 11/17/17 07:50 Total Bilirubin 0.6 mg/dl (0.2-1.3) 11/18/17 05:20 Direct Bilirubin 0.2 mg/ml (0.0-0.4) 11/17/17 07:50 AST 25 U/L (14-36) 11/18/17 05:20 ALT 38 U/L (9-52) 11/18/17 05:20 Alkaline Phosphatase 351 U/L (38-126) H 11/18/17 05:20 Total Creatine Kinase < 20 U/L (30-135) L 11/17/17 20:09 Total Protein 5.2 G/DL (6.3-8.2) L 11/18/17 05:20 Albumin 2.3 g/dL (3.5-5.0) L 11/18/17 05:20 Globulin 2.8 gm/dL (2.2-3.9) 11/18/17 05:20 Albumin/Globulin Ratio 0.8 (1.0-2.1) L 11/18/17 05:20 Alpha Fetoprotein 1.2 IU/mL (0.0-7.22) 11/17/17 20:09 Vitamin B12 352 pg/mL (239-931) 11/17/17 07:50 25-OH Vitamin D Total < 12.8 NG/ML (30.0-100.0) L 11/17/17 08:30 Venous Blood Potassium 3.6 mmol/L (3.6-5.2) 11/15/17 10:00 Urine Color Yellow (YELLOW) 11/15/17 09:30 Urine Clarity Cloudy (Clear) 11/15/17 09:30 Urine pH 6.0 (5.0-8.0) 11/15/17 09:30 Ur Specific [place] 1.014 (1.003-1.030) 11/15/17 09:30 Urine Protein Negative mg/dL (NEGATIVE) 11/15/17 09:30 Urine Glucose (UA) Neg mg/dL (Normal) 11/15/17 09:30 Urine Ketones Negative mg/dL (NEGATIVE) 11/15/17 09:30 Urine Blood Negative (NEGATIVE) 11/15/17 09:30 Urine Nitrate Negative (NEGATIVE) 11/15/17 09:30 Urine Bilirubin Negative (NEGATIVE) 11/15/17 09:30 Urine Urobilinogen 0.2-1.0 mg/dL (0.2-1.0) 11/15/17 09:30 Ur Leukocyte Esterase Neg Ana/uL (Negative) 11/15/17 09:30 Urine RBC (Auto) 1 /hpf (0-3) 11/15/17 09:30 Urine Microscopic WBC 8 /hpf (0-5) H 11/15/17 09:30 Ur Squamous Epith Cells 8 /hpf (0-5) H 11/15/17 09:30 Urine Bacteria Rare (<OCC) 11/15/17 09:30 Stool Calprotectin 772.5 mcg/g (< OR = 162.9) H 11/15/17 07:00 Vancomycin Trough < 5.0 ug/mL (5.0-10.0) L 11/18/17 20:30 Lyme Disease Screen <0.90 index 11/19/17 15:14 C. difficile Tox B Gene Not detected (Not Detected) 11/19/17 15:14 C. difficile Ag & Toxin Positive antigen (NEGATIVE) 11/16/17 07:00 Hepatitis C Antibody Reactive (NEGATIVE) 11/18/17 17:55 Hep C Ab Signal/Cutoff 25.3 Ratio (<1.0) H 11/18/17 17:55 Hepatitis C RNA <15 not detected IU/mL (Not Detected) 11/16/17 09:48 HCV RNA Quant (PCR) <1.18 not detected Log IU/mL (Not Detected) 11/16/17 09: 48 HSV Culture Source Stool 11/22/17 09:04 HSV Rapid Culture TNP 11/22/17 09:04 HIV 1&2 Antibody Screen Negative (NEGATIVE) 11/17/17 20:09 TB Test (QFT) Nil 1.02 IU/mL 11/17/17 11:15 TB Test Mitogen - Nil 0.87 IU/mL 11/17/17 11:15 TB Test TB - Nil <0.00 IU/mL 11/17/17 11:15 TB Test (QFT) Negative (Negative) 11/17/17 11:15 Blood Type O POSITIVE 11/17/17 11:15 Blood Type Confirm O POSITIVE 11/17/17 11:40 Antibody Screen Negative 11/17/17 11:15 Crossmatch See Detail 11/17/17 11:15 BBK History Checked No verified bt 11/17/17 11:15 - Hospital Course Hospital Course: This is a 37 yo f with pmh of Crohn, who presented to ED due to abdominal pain and bloody diarrhea, and fever. Was admitted with Dx of sepsis/ Crohn exacerbation. GI and ID was on case, was treated with Abx, and had a colonoscopy /endoscopy with multiple bx. Pt improved, no sign of infection per now, Crohn meds were readjusted and prednisone was added. Pt is feeling better, ate well, no fever chest pain, sob, abd pain or any other symptoms. GI ,ID and Medical team agree that pt is medically stable and clear to be discharged. F/U Dr León on Tuesday11/25/17 F/U GI in 4 weeks Discharge Exam - Head Exam Head Exam: ATRAUMATIC, NORMAL INSPECTION, NORMOCEPHALIC - Eye Exam Eye Exam: EOMI, Normal appearance, PERRL Pupil Exam: NORMAL ACCOMODATION, PERRL - ENT Exam ENT Exam: Normal Exam - Neck Exam Neck exam: Full Rom - Respiratory Exam Respiratory Exam: Clear to PA & Lateral, NORMAL BREATHING PATTERN, UNREMARKABLE - Cardiovascular Exam Cardiovascular Exam: REGULAR RHYTHM, +S1, +S2 - GI/Abdominal Exam GI & Abdominal Exam: Normal Bowel Sounds, Soft, Unremarkable. absent: Tenderness - Back Exam Back exam: NORMAL INSPECTION - Neurological Exam Neurological exam: Alert, Oriented x3 - Psychiatric Exam Psychiatric exam: Normal Affect, Normal Mood - Skin Skin Exam: Dry, Intact, Normal Color, Warm Discharge Plan - Follow Up Plan Condition: FAIR Disposition: HOME/ ROUTINE Instructions: Crohn's Disease in Adults, [place] Diet, Sepsis (DC) Additional Instructions: follow up with primary medical doctor in 2-3 days drink lots of fluids follow up with Dr. Cason in 1 week any worsening of symptoms return to ED for evaluation and treatment Referrals: [facility] [place] [Outside] Keith Cason MD [Medical Doctor] -
== END 2017-11-24 12:13 | disposition home or self-care (01) | DRG 901 ==
LOC: H.ER 09:09 → H.ERHOLD 14:05 → H.TEL 18:24 → H.MEDSURG1 11-16 22:58
PROVIDERS: ADMIT Family Medicine Geriatric Medicine; ATTEND Family Medicine Geriatric Medicine
PROC: 30233N1 Transfusion of Nonautologous Red Blood Cells into Peripheral Vein, Percutaneous Approach (ICD-10-PCS; 2017-11-17)
PROC: 0DBH8ZX Excision of Cecum, Via Natural or Artificial Opening Endoscopic, Diagnostic (ICD-10-PCS; 2017-11-22)
PROC: 0DBN8ZX Excision of Sigmoid Colon, Via Natural or Artificial Opening Endoscopic, Diagnostic (ICD-10-PCS; 2017-11-22)
PROC: 0DB98ZX Excision of Duodenum, Via Natural or Artificial Opening Endoscopic, Diagnostic (ICD-10-PCS; principal; 2017-11-22 15:30)
PROC: 0DB78ZX Excision of Stomach, Pylorus, Via Natural or Artificial Opening Endoscopic, Diagnostic (ICD-10-PCS; 2017-11-22 15:30)
DX: A41.01 Sepsis due to Methicillin susceptible Staphylococcus aureus (principal); D50.0 Iron deficiency anemia secondary to blood loss (chronic); B19.20 Unspecified viral hepatitis C without hepatic coma; E87.6 Hypokalemia; K52.89 Other specified noninfective gastroenteritis and colitis; K50.80 Crohn's disease of both small and large intestine without complications; K29.70 Gastritis, unspecified, without bleeding; R21 Rash and other nonspecific skin eruption; N91.2 Amenorrhea, unspecified; Q62.5 Duplication of ureter; Z91.14 Patient's other noncompliance with medication regimen; Z79.899 Other long term (current) drug therapy; Z88.0 Allergy status to penicillin; Z91.018 Allergy to other foods